=== PATIENT | male | born 1995 | race Caucasian/White ===

== ENCOUNTER → 2019-09-21 15:21 | Outpatient (CLI) | payer BC, SELFPAY ==
--- NOTE | ~2019-09-21 | US_ITS ---
EXAMINATION: US soft tissue groin RT DATE: 09/21/2019 15:35 INDICATION: Right lower quadrant abdominal pain. Right groin pain. TECHNIQUE: Multiple grayscale and Doppler ultrasound images of the right inguinal region were obtaine d. COMPARISON: CT abdomen and pelvis 10/25/2017 FINDINGS: There is no abnormal mass or lymphadenopathy in right inguinal region in the patient's area of concern. IMPRESSION: 1. No abnormal mass or lymphadenopathy in right inguinal region in the patient's area of concern. Reviewed, dictated and finalized at location A. IMPRESSION: 1. No abnormal mass or lymphadenopathy in right inguinal region in the patient' s area of concern.
== END ==
PROVIDERS: PCP Physician Assistant; Visit Provider Surgery
DX: R10.31 Right lower quadrant pain (principal)
CPT/HCPCS: 76882

== ENCOUNTER 2019-10-13 00:06 | Emergency (ER) | payer BC, SELFPAY ==
[2019-10-13 00:15] VITALS: BP 140/88; PULSE 80; RESP 18; TEMP 36.1; O2SAT 99
--- NOTE | 2019-10-13 00:25 | ED.EAR ---
HPI - Ear Problem General Chief complaint: Ear Stated complaint: 24YO male w/ Right Ear Pain for 2-3 days. Here for eval, admits to picking r ear to clear wax . Related Data Home Medications Medication Instructions Recorded Confirmed No Home Medications 10/13/19 10/13/19 Allergies Allergy/AdvReac Type Severity Reaction Status Date / Time Antihistamines - Alkylamine AdvReac Difficulty Verified 10/13/19 00:19 Breathing Review of Systems Review of Systems: All systems reviewed & are unremarkable except as noted in HPI and below Constitutional: Constitutional: Reports no additional constitutional complaints Eyes: Eyes: Reports no additional eye complaints ENT: Reports as per HPI Cardiovascular: Cardiovascular: Reports no additional cardiovascular complaints Comments: Respiratory: Respiratory: Reports no additional respiratory complaints Gastrointestinal: Gastrointestinal: Reports no additional gastrointestinal complaints Musculoskeletal: Musculoskeletal: Reports no additional musculoskeletal complaints Integumentary/Breasts: Skin/Breast: Reports system reviewed and no additional complaints, except as docu Neurologic: Reports system reviewed and no additional complaints, except as documented [facility] Past Medical History Medical History Depression Surgical History Surgical History S/P foot surgery, left Family History Family History Sibling Asthma ADHD Kidney stones Depression Unknown Heart disease Depression Social History Social History Smoking status: Current some day smoker Tobacco type: cigarettes Alcohol intake: current Substance use: unknown 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[employer] Gender identity (if verbalized by the patient): Male Sexual Orientation (if Verbalized by the Patient): Straight or Heterosexual Exam Const: General: healthy appearing, no acute distress and alert Orientation/consciousness: patient oriented x3 HENMT: Ears: TM's normal bilaterally and Abnormal EAC present (Abrasion on posterior aspect of right ext canal) General nose exam: Normal nares present Face and sinus: normal facial exam and sinuses nontender Eyes: Conjunctivae: conjunctivae normal Pupils: Equal, round and reactive pupils present Neck: Neck: normal visual inspection Chest: Chest palpation & inspection: normal inspection of the chest Resp: Effort & Inspection: normal respiratory effort Auscultation: clear to auscultation bilaterally Cardio: Rate: regular rate Rhythm: regular rhythm Skin: General skin exam: normal color Neuro: General: patient oriented x3, moves all extremities, no meningeal signs, no focal motor deficits and CN's II-XI intact bilaterally Extrem: General: normal to inspection Course Vital Signs Vital signs: Vital Signs Temperature 97 F L 10/13/19 00:15 Pulse Rate 80 10/13/19 00:15 Respiratory Rate 18 10/13/19 00:15 Blood Pressure 140/88 10/13/19 00:15 Pulse Oximetry 99 10/13/19 00:15 Temperature 97 F L 10/13/19 00:15 Pulse Rate 80 10/13/19 00:15 Respiratory Rate 18 10/13/19 00:15 Blood Pressure 140/88 10/13/19 00:15 Pulse Oximetry 99 10/13/19 00:15 Medical Decision Making Vital Signs Vital Signs: Vital Signs Temperature 97 F L 10/13/19 00:15 Pulse Rate 80 10/13/19 00:15 Respiratory Rate 18 10/13/19 00:15 Blood Pressure 140/88 10/13/19 00:15 Pulse Oximetry 99 10/13/19 00:15 Temperature 97 F L 10/13/19 00:15 Pulse Rate 80 10/13/19 00:15 Respiratory Rate 18 10/13/19 00:15 Blood Pressure 140/88 10/13/19 00:15 Pulse Oximetry 99 10/13/19 00:15 Critical Care Time Critical Care Time Critical Care Time: No Nadira
[2019-10-13] MEDS: NEOMYCIN/POLYMYXIN/HYDROCORT OT SUSP 10 ML BTL (*BKC) 1 DROP (00:30)
[2019-10-13 00:33] VITALS: BP 145/77; PULSE 82; RESP 18; TEMP 36.1; O2SAT 98
== END 2019-10-13 00:36 | disposition home or self-care (01) ==
PROVIDERS: Emergency Provider Family Medicine; PCP Physician Assistant
DX: H60.501 Unspecified acute noninfective otitis externa, right ear (principal)
CPT/HCPCS: 99282; 99283; A9270

== ENCOUNTER 2019-11-12 13:28 | Emergency (ER) | payer BC, MEDICAID, SELFPAY ==
--- NOTE | ~2019-11-12 | US_ITS ---
EXAMINATION: US scrotum doppler EXAM DATE: 11/12/2019 16:35 INDICATION: Right testicular pain intermittent for 1.5 years. TECHNIQUE: Multiple grayscale and Doppler images of the testicles and scrotum were obtained bilateral ly. There is no prior study for comparison. FINDINGS: Right testicle measures 5.0 x 2.6 x 2.3 cm and is morphologically normal. Low resistance Doppler kirit w confirmed. The epididymis is unremarkable. There is no hydrocele or varicocele. Left testicle measures 4.2 x 2.6 x 2.7 cm and is morphologically normal. Low resistance Doppler flow confirmed. The epididymis is unremarkable. There is no hydrocele or varicocele. IMPRESSION: Unremarkable testicular/scrotal ultrasound exam. Reviewed, dictated and finalized at location B.
--- NOTE | ~2019-11-12 | CT_ITS ---
EXAMINATION: CT abdomen pelvis w con DATE: 11/12/2019 15:08 INDICATION: Right lower quadrant abdominal pain TECHNIQUE: Computed tomography (CT) of the abdomen and pelvis was performed with 100 cc Omnipaque 350 intravenous contrast. Automated exposure control and iterative reconstruction technique were employe d. Exam dose: 221.64 mGy-cm total exam DLP. COMPARISON: 10/25/2017 CT abdomen pelvis FINDINGS: No infiltrate or consolidation at the lung bases. Normal heart size. No pericardial or pleu ral effusion. There are 2 hypoattenuating areas along the posterior margin of the right hepatic lobe (series 3 imag es 67, 68, 69). These may be small cavernous hemangiomas and/or cysts. The liver, gallbladder, bile d ucts, spleen, pancreas, pancreatic duct, and adrenal glands and kidneys are otherwise appear normal. Normal caliber of the abdominal aorta. No intraperitoneal or retroperitoneal or pelvic mass lesion or adenopathy or ascites. Normal appendix. No bowel obstruction, bowel wall thickening, pneumatosis or intraperitoneal free air. Included skeletal structures are unremarkable. IMPRESSION: Normal appendix Reviewed, dictated and finalized at Location A. Reviewed, dictated and finalized at location A. IMPRESSION: Normal appendix
[2019-11-12 13:30] VITALS: BP 147/89; PULSE 91; RESP 18; TEMP 36.9; O2SAT 99
--- NOTE | 2019-11-12 13:45 | ED.ABDPAIN ---
HPI - Abdominal Pain General Chief Complaint: Abdominal Pain Stated Complaint: abd pain Time Seen by Provider: 11/12/19 13:45 Source: patient Mode of arrival: ambulatory Limitations: no limitations History of Present Illness HPI narrative: Patient is a 24-year-old male that presented for evaluation of right-sided lower abdominal pain. Patient states he has been dealing with pain on and off over the past year and a half, states he has seen Dr. Marco Machado and is in the process of having possible surgical procedure with Dr. Hernandez to further investigate this. He reports the pain is throbbing, aching in nature, occasional bulging in the right lower quadrant, with radiation into the right testicle. No dysuria or hematuria. No fever or chills. Patient does report some associated nausea with the pain. No recent heavy lifting. No current bulging. He denies any penile discharge or lesions. Related Data Allergies Allergy/AdvReac Type Severity Reaction Status Date / Time Antihistamines - Alkylamine AdvReac Difficulty Verified 11/12/19 13:39 Breathing Review of Systems Review of Systems: Narrative: CONSTITUTIONAL: Denies fever, chills, or sweats. CARDIOVASCULAR: Denies chest pain, palpitations, or edema. RESPIRATORY: Denies cough or dyspnea. GASTROINTESTINAL: Reports abd pain in the RLQ GENITOURINARY: Denies dysuria or hematuria.Reports rt testicular pain SKIN: Denies rash or itching. MUSCULOSKELETAL: Denies back pain, joint pain, or myalgia. NEUROLOGIC: Denies headache, numbness, or weakness. 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 EYES: PERRLA and EOMI. ENT: Nares clear, no rhinorrhea or epistaxis. Mucous membranes moist. NECK: Supple. CHEST: No respiratory distress, breathing even and non labored HEART: Regular rate, sinus rhythm ABDOMEN:Non distended, non tender, mild right inguinal pain, no lymphadenopathy, no mass or bulging appreciated, penis is circumcised, no lesions or discharge no periumbilical or right upper quadrant pain, nonrigid, no guarding EXTREMITIES: Normal range of motion. No edema. SKIN: Warm, dry, no rash. NEURO:No focal deficits. Alert and oriented x3 Course Vital Signs Vital signs: Vital Signs Temperature 36.9 C 11/12/19 13:30 Pulse Rate 91 11/12/19 13:30 Respiratory Rate 18 11/12/19 13:30 Blood Pressure 147/89 H 11/12/19 13:30 Pulse Oximetry 99 11/12/19 13:30 Temperature 36.9 C 11/12/19 13:30 Pulse Rate 88 11/12/19 16:34 Respiratory Rate 14 11/12/19 16:34 Blood Pressure 126/78 11/12/19 16:34 Pulse Oximetry 99 11/12/19 16:34 MDM - Abdominal Pain MDM Narrative Medical decision making narrative: Patient presented for acute on chronic right-sided abdominal pain. At the time of assessment, ABCs are intact and vital signs are stable. Patient is well-appearing. Abdominal exam and genitourinary exam is very benign. There is no bulging, no lymphadenopathy, very minimal if any pain present on exam. Pain seems to be worse with movement which makes me think this is likely musculoskeletal. Testicles are nonerythematous, nonedematous, nontender on exam. No penile discharge or exudate. No lesions. Laboratory work-up is reassuring. No leukocytosis. No electrolyte derangement. No acute kidney injury. No sign of torsion on imaging. No UTI. No acute findings on CT abdomen/pelvis. Patient's abdomen is soft without significant pain or signs of surgical abdomen on serial exa
[2019-11-12 14:00] LABS: Basophils Percent Auto 0.5 % (0.2-1.2); Eosinophils Absolute Auto 0.3 K/mm3 (0-0.3); Hemoglobin 18.3 g/dL (14.0-18.0); Immature Granulocyte Absolute 0.03 K/mm3 (0.00-0.031); Immature Granulocyte Percent A 0.4 % (0-0.5); Lymphocytes Absolute Auto 1.73 K/mm3 (0.9-3.2); Lymphocytes Percent Auto 20.6 % (18.3-44.2); Mean Corpuscular HGB Conc 35.9 g/dl (32-36); Mean Corpuscular Hemoglobin 33.8 pg (26-34); Mean Corpuscular Volume 94.3 fl (80-100); Mean Platelet Volume 9.2 fl (7.4-10.4); Monocytes Absolute Auto 0.9 K/mm3 (0.1-0.6); Monocytes Percent Auto 10.5 % (2.6-8.5); Neutrophils Absolute Auto 5.5 K/mm3 (1.3-6.7); Platelet Count Result 274 k/mm3 (150-375); Red Blood Count 5.41 M/mm3 (4.6-6.20); Red Cell Distribution Width 12.3 % (11.5-14.5); White Blood Count 8.4 K/mm3 (4.5-10.0)
[2019-11-12 14:12] LABS: Alanine Aminotransferase 33 U/L (4-50); Alkaline Phosphatase 72 U/L (38-126); Anion Gap 11 mmol/L (8-16); Aspartate Amino Transferase 34 U/L (17-59); Bilirubin,Total 1.2 mg/dL (0.2-1.3); Blood Urea Nitrogen 12 mg/dL (9-20); Calcium 10.3 mg/dL (8.4-10.2); Carbon Dioxide 26 mmol/L (22-30); Chloride 104 mmol/L (98-107); Estimated CRCL calculation 100 ml/min; Estimated Glomerular Filt Rate > 60; Glucose 100 mg/dL (75-110); Lipase 29 U/L (23-300); Potassium 3.7 mmol/L (3.4-5.0); Sodium 141 mmol/L (137-145)
[2019-11-12] MEDS: oxyCODONE/ACETAMINOPHEN (*CRX) 5-325 MG TABLET 1 TABLET PO (14:29)
[2019-11-12 16:05] LABS: Add Urine Microscopic? YES; Appearance Urine Clear (Clear); Bacteria Urine Trace /hpf; Bilirubin Urine Negative (Negative); Blood Urine Negative (Negative); Color Urine Yellow (Yellow); Glucose Urine UA Negative (Negative); Ketones Urine Negative (Negative); Leukocyte Esterase Ur Negative LEU/UL (Negative); Mucus Urine Rare /lpf; Nitrate Urine Negative (Negative); Protein Urine Negative (Negative); RBC Urine 0-2 /hpf (0-2); Specific Grav Ur 1.015 (1.001-1.035); WBC Urine 0-3 /hpf
[2019-11-12 16:34] VITALS: BP 126/78; PULSE 88; RESP 14; O2SAT 99
== END 2019-11-12 17:15 | disposition home or self-care (01) ==
PROVIDERS: Emergency Provider Emergency Medicine; PCP Physician Assistant
DX: R10.31 Right lower quadrant pain (principal); F17.210 Nicotine dependence, cigarettes, uncomplicated
CPT/HCPCS: 36415; 74177; 76870; 80053; 81001; 83690; 85025; 93976; 99284; A9270; Q9967

== ENCOUNTER 2019-11-17 00:57 | Outpatient (CLI) | payer BC, SELFPAY ==
[2019-11-17 18:59] LABS: SARS-CoV-2 RNA PCR Negative
== END 2019-11-17 00:58 | disposition home or self-care (01) ==
LOC: ANHCOVIDDT 00:57
PROVIDERS: PCP Physician Assistant; Visit Provider Surgery
DX: Z01.812 Encounter for preprocedural laboratory examination (principal); Z20.828 Contact with and (suspected) exposure to other viral communicable diseases
CPT/HCPCS: 87635; C9803; U0003

== ENCOUNTER 2019-11-17 07:33 | Outpatient (CLI) | payer BC, SELFPAY | END 2019-11-17 07:34 | disposition home or self-care (01) | PROVIDERS: PCP Physician Assistant; Visit Provider Surgery | DX: Z01.812 Encounter for preprocedural laboratory examination (principal); K40.90 Unilateral inguinal hernia, without obstruction or gangrene, not specified as recurrent | CPT/HCPCS: 36415; 86850; 86900; 86901 ==

== ENCOUNTER 2019-11-20 01:54 | Day surgery (SDC) | payer BC, SELFPAY ==
[2019-11-15 14:56] VITALS: BMI 22.7
[2019-11-20] VITALS (8 sets, daily range): BP systolic 121–157; BP diastolic 78–99; PULSE 64–88; RESP 10–15; TEMP 36.1–36.5; O2SAT 96–100
[2019-11-20] MEDS: LACTATED RINGERS 1,000 ML 30 ML IV CONT ×2 (06:42→08:50)
[2019-11-20] MEDS: ACETAMINOPHEN 500 MG TABLET 1000 MG PO (06:42)
[2019-11-20] MEDS: KETOROLAC 15 MG/ML VIAL (*BKC) IV PUSH (06:43)
--- NOTE | 2019-11-20 06:50 | WPDANESEPPF ---
Anes - Initial Pre Proc Eval Procedure: Operation Date: 11/20/19 07:30 Proposed Procedures p Laparoscopic Right Inguinal Hernia Repair with Mesh, Davinci Assisted - Alex Quezada DO Date/Time: 11/20/19 06:50 Surgeon: Alex Quezada DO Pre Op Diagnosis: right inguinal hernia Patient Data Age: 24 Gender: M Height: 5 ft 7 in Weight: 65.77 kg Allergies Allergy/AdvReac Type Severity Reaction Status Date / Time Antihistamines - Alkylamine AdvReac Difficulty Verified 11/15/19 14:57 Breathing Home Medications Medication Instructions Recorded Confirmed Type acetaminophen 500 mg PO Q6H PRN #30 cap 11/12/19 11/16/19 Rx ibuprofen 400 mg PO TID PRN 10 Days #30 11/12/19 11/16/19 Rx tablet lidocaine 1 patch TOPICAL Q24H PRN 10 Days 11/12/19 11/16/19 Rx #10 each cyclobenzaprine 10 mg tablet 10 mg PO TID PRN tablet 11/15/19 11/16/19 History Patient hx anesthesia problems: none Family hx anesthesia problems: none PMFSH Past Medical History Medical History ADHD Depression Smoker Tobacco abuse Surgical History Surgical History S/P foot surgery, left Family History Family History Sibling Asthma ADHD Kidney stones Depression Unknown Heart disease Depression Social History Social History Smoking packs per day: 1 Smoking cigarettes per day: 20.0 Years smoked: 16 Smoking pack-years: 16.00 Smoking status: Current every day smoker Tobacco type: cigarettes Alcohol intake: current Alcohol use details: STATES DRINKS 1-2 BOTTLES WHISKEY AND 30 PACK W/ FRIENDS PER WEEK Substance use: current Substance use type: marijuana Last use: DAILY 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 Questions were solicited and answers provided to the satisfaction of the patient/family/POA.
--- NOTE | 2019-11-20 07:07 | WPDHPUPDATE1 ---
History and Physical Update Update Date/Time: 11/20/19 07:07 History and Physical has been reviewed, including an updated exam of the patient. There are NO changes in the patient's condition. Risks, benefits, and alternatives have been discussed and questions answered. Patient agrees to proceed with procedure.
[2019-11-20] MEDS: ceFAZolin 2 GM/D5W 50 ML 2 GM/50 ML BAG IVPB (07:22)
--- NOTE | 2019-11-20 08:37 | PM.PROC ---
Procedure Note - Detailed Date of procedure: 11/20/19 Pre-op diagnosis: right inguinal hernia Post-op diagnosis: same (Indirect RIH) Procedure performed: Laparoscopic right inguinal hernia repair with Progrip mesh, da Jones assisted Description of procedure: Procedure as well as risks, benefits, and alternatives were discussed with the patient. Written consent was obtained and placed in chart prior to procedure. Patient was brought back to surgical suite. He was placed supine on operating table. Time-out was done to confirm patient and procedure. He was then intubated by Anesthesia Department. His abdomen was prepped and draped in sterile fashion using chlorhexidine prep. 0.5% bupivacaine with epinephrine was infiltrated at each location for incision. An 8 mm incision was made in the left lateral abdomen, and a 5 mm Optiview trocar was advanced through the abdominal layers under direct visualization. Once inside the abdominal cavity, carbon dioxide insufflation was used to create a pneumoperitoneum. A camera was inserted and the abdominal cavity was inspected. The patient was placed in slight Trendelenburg position. An 8 millimeter incision was made on the right lateral abdomen and an 8 millimeter trocar was inserted under direct visualization. Another 8 millimeter incision was made just superior to the umbilicus and an 8 millimeter trocar was inserted under direct visualization. The 5 mm port was then removed and this was replaced with another 8 mm robotic port. The robotic arms were brought up to the patient's bedside and secured to the ports. The camera and instruments were inserted. I then moved over to the robotic console and took control of the camera and instruments. After careful inspection of the abdominal cavity, I began scoring the peritoneum along the right lower quadrant using scissors with electrocautery. The preperitoneal plane was entered and this was carefully dissected caudally along the inferior epigastric vessels. Careful dissection with scissors with electrocautery and blunt dissection was used to continue this dissection. I dissected far enough laterally to allow for mesh placement, and also dissected medially to identify the pubic arch and Nilesh's ligament. The hernia sac was identified and carefully dissected posteriorly. The cord contents were also identified and the peritoneum was carefully dissected far enough posteriorly to allow for mesh placement. Once an adequate pocket was created, I then placed the mesh within the preperitoneal pocket and carefully unfolded it. The mesh was centered on the hernia defect with adequate overlap circumferentially. The inferior edge of the mesh was inspected to ensure that it was far enough away from the peritoneal edge. The mesh appeared in proper position overlying the entire myopectineal orifice. The peritoneum was then closed over the mesh using a 3-0 V-lock running absorbable suture. The robotic instruments were removed. The robotic arms were disengaged from the ports and moved away from the bedside. The patient was flattened out in bed, the ports were removed under direct visualization, and the pneumoperitoneum was released. The skin of the incisions was approximated using 4-0 Monocryl subcuticular suture, and Exofin glue was applied on top. The patient was awakened from anesthesia, extubated, and transferred to recovery. Implants: Progrip Mesh 10cm x 15cm Anesthesia: GETA and local (0.5% bupivicaine with epi) Surgeon: Alex Quezada DO Estimated blood loss (mL): 5 Drains: No Packing: No Pathology: none sent Complications: No immediate complications Condition: stable Disposition: same day Findings: This is a 24-year-old man who presented with complaints of right groin pain and a bulge. He has been having symptoms for about 2 years. He notices pain more frequently with heavy activity or standing for long periods of time. Hernia was difficult to appreciate on physica
[2019-11-20] MEDS: fentaNYL CITRATE INJ (*CRX) 100 MCG/2 ML VIAL 25 MCG IV PUSH ×6 (09:12→09:32)
[2019-11-20] MEDS: oxyCODONE HCL (*CRX) 5 MG TAB IR PO (10:00)
--- NOTE | 2019-11-20 10:33 | SUR.PHASEII ---
Patient stated, It was very painful to urinate but what little I had in my bladder I was able to get out. RN asked patient if he felt comfortable going home and he said yes.
--- NOTE | 2019-11-20 11:26 | SUR.PHASEII ---
RN left outpatient area w/ patient at 1058. Patient asked to use the bathroom in the lobby for the third time. He stated each time he was only able to go a little bit. RN told patient if he was still having trouble urinating in a few hours at home to call Dr. Quezada's office. RN put patient in vehicle at 1120 to go home.
== END 2019-11-20 10:58 | disposition home or self-care (01) ==
PROVIDERS: PCP Physician Assistant; Visit Provider Surgery
PROC: 8E0Y4CZ Robotic Assisted Procedure of Lower Extremity, Percutaneous Endoscopic Approach (ICD-10-PCS; CPT 49650; principal; 2019-11-20 07:30)
DX: K40.90 Unilateral inguinal hernia, without obstruction or gangrene, not specified as recurrent (principal); F17.210 Nicotine dependence, cigarettes, uncomplicated
CPT/HCPCS: 49650; S2900; A9270; C1781; J0330; J0690; J1100; J1885; J2250; J2405; J2704; J3010; J7030; J7120

== ENCOUNTER 2020-01-03 21:32 | Emergency (ER) | payer BC, SELFPAY ==
--- NOTE | ~2020-01-03 | XR_ITS ---
XR ribs BI 3V w CXR 2V DATE: 01/03/2020 22:57 INDICATION: Left lower anterior rib pain. No injury. TECHNIQUE: PA and lateral chest. Multiple views of left and right ribs. COMPARISON: 04/07/2011 PA chest FINDINGS: Normal heart size. No hilar or mediastinal enlargement. No pulmonary infiltrate or consolid ation, pleural effusion or pulmonary vascular congestion or pneumothorax. No rib fracture or bone destruction is detected. IMPRESSION: Negative Reviewed, dictated and finalized at location A. [employer] ASSESS[employer] IMPRESSION: Negative
--- NOTE | ~2020-01-03 | CT_ITS ---
EXAMINATION: CT abdomen pelvis wo con DATE: 01/03/2020 23:29 INDICATION: Left upper quadrant abdominal pain TECHNIQUE: Computed tomography (CT) of the abdomen and pelvis was performed without intravenous contr ast. Automated exposure control and iterative reconstruction technique were employed. Exam dose: 207 .30 mGy-cm total exam DLP. COMPARISON: 11/12/2019 CT abdomen pelvis FINDINGS: The lung bases are clear. Normal heart size. No pericardial or pleural effusion. The liver, gallbladder, spleen, pancreas, adrenal glands and kidneys are unremarkable. Normal caliber of the abdominal aorta. No intraperitoneal or retroperitoneal or pelvic mass lesion or adenopathy or ascites. Normal appendix. No bowel obstruction, bowel wall thickening, pneumatosis or intraperitoneal free air . Included skeletal structures are unremarkable. IMPRESSION: No significant abnormality Reviewed, dictated and finalized at Location A. Reviewed, dictated and finalized at location A. 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
[2020-01-03 21:38] VITALS: BP 145/90; PULSE 116; RESP 14; TEMP 36.6; O2SAT 100
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
[2020-01-03 23:29] LABS: Basophils Percent Auto 0.4 % (0.2-1.2); Eosinophils Absolute Auto 0.2 K/mm3 (0-0.3); Eosinophils Percent Auto 1.3 % (0-4.4); Hematocrit 50.5 % (42.0-52.0); Immature Granulocyte Absolute 0.04 K/mm3 (0.00-0.031); Immature Granulocyte Percent A 0.4 % (0-0.5); Lymphocytes Absolute Auto 1.98 K/mm3 (0.9-3.2); Lymphocytes Percent Auto 17.4 % (18.3-44.2); Mean Corpuscular HGB Conc 35.6 g/dl (32-36); Mean Corpuscular Hemoglobin 33.1 pg (26-34); Mean Platelet Volume 9.4 fl (7.4-10.4); Monocytes Percent Auto 8.3 % (2.6-8.5); Neutrophils Absolute Auto 8.2 K/mm3 (1.3-6.7); Neutrophils Percent Auto 72.2 % (45.5-73.1); Platelet Count Result 315 k/mm3 (150-375); Red Blood Count 5.43 M/mm3 (4.6-6.20); Red Cell Distribution Width 12.2 % (11.5-14.5); White Blood Count 11.4 K/mm3 (4.5-10.0)
[2020-01-03 23:51] LABS: Alanine Aminotransferase 42 U/L (4-50); Albumin Level 4.9 g/dL (3.5-5.1); Alkaline Phosphatase 69 U/L (38-126); Anion Gap 10 mmol/L (8-16); Aspartate Amino Transferase 32 U/L (17-59); Bilirubin,Total 0.7 mg/dL (0.2-1.3); Blood Urea Nitrogen 15 mg/dL (9-20); Calcium 10.3 mg/dL (8.4-10.2); Carbon Dioxide 31 mmol/L (22-30); Chloride 101 mmol/L (98-107); Estimated CRCL calculation 99 ml/min; Estimated Glomerular Filt Rate > 60; Glucose 96 mg/dL (75-110); Lipase 45 U/L (23-300); Potassium 3.6 mmol/L (3.4-5.0); Sodium 142 mmol/L (137-145)
[2020-01-04 00:03] VITALS: BP 136/89; PULSE 91; RESP 20; TEMP 36.8; O2SAT 97
== END 2020-01-04 00:04 | disposition home or self-care (01) ==
PROVIDERS: Emergency Provider Emergency Medicine; PCP Physician Assistant
DX: R07.81 Pleurodynia (principal); R10.12 Left upper quadrant pain; F17.210 Nicotine dependence, cigarettes, uncomplicated; Z86.19 Personal history of other infectious and parasitic diseases
CPT/HCPCS: 36415; 71046; 71110; 74176; 80053; 83690; 85025; 99284

== ENCOUNTER 2020-05-23 20:06 | Emergency (ER) | payer BC, MEDICAID, SELFPAY ==
--- NOTE | ~2020-05-23 | CT_ITS ---
EXAMINATION: CT abdomen pelvis w con DATE: 05/23/2020 23:43 INDICATION: Right lower quadrant abdominal pain TECHNIQUE: Computed tomography (CT) of the abdomen and pelvis was performed with 100 cc Omnipaque 350 intravenous contrast. Automated exposure control and iterative reconstruction technique were employe d. Exam dose: 195.63 mGy-cm total exam DLP. COMPARISON: 01/03/2020 CT abdomen pelvis 11/12/2019 CT abdomen pelvis FINDINGS: The lung bases are clear. Normal heart size. No pericardial or pleural effusion. Stable approximately 6 and 15 mm hypoattenuating lesions along the posterior right hepatic margin sin ce 11/12/2019 are likely small cysts and/or hemangiomas. Liver otherwise is unremarkable. Normal splen ic size. No pancreatic mass lesion, calcification or ductal dilatation. No bile duct dilatation. The gallbladd er is present. Normal morphology of the adrenal glands. No renal mass lesion or urinary tract calculus or hydroureteronephrosis is evident. The urinary bladd er and prostate gland are unremarkable. Normal caliber of the abdominal aorta. No intraperitoneal or retroperitoneal or pelvic mass lesion or adenopathy or ascites. Normal appendix. No bowel obstruction, bowel wall thickening, pneumatosis or intraperitoneal free air . Included skeletal structures are unremarkable. IMPRESSION: Normal appendix Stable approximately 6 and 15 mm posterior right hepatic margin lesions since 11/12/2019 Reviewed, dictated and finalized at [facility] Reviewed, dictated and finalized at [facility].
[2020-05-23 20:11] VITALS: BP 127/75; PULSE 84; RESP 18; TEMP 36.9; O2SAT 98
[2020-05-23] MEDS: SODIUM CHLORIDE 0.9% IV 1,000 ML 999 ML IV CONT (23:01)
[2020-05-23 23:04] LABS: Basophils Absolute Auto 0.1 K/mm3 (0.0-0.1); Basophils Percent Auto 0.4 % (0.2-1.2); Eosinophils Absolute Auto 0.3 K/mm3 (0-0.3); Eosinophils Percent Auto 2.1 % (0-4.4); Hematocrit 50.2 % (42.0-52.0); Hemoglobin 17.6 g/dL (14.0-18.0); Immature Granulocyte Absolute 0.04 K/mm3 (0.00-0.031); Immature Granulocyte Percent A 0.3 % (0-0.5); Lymphocytes Absolute Auto 2.63 K/mm3 (0.9-3.2); Lymphocytes Percent Auto 21.2 % (18.3-44.2); Mean Corpuscular HGB Conc 35.1 g/dl (32-36); Mean Corpuscular Hemoglobin 32.1 pg (26-34); Mean Corpuscular Volume 91.4 fl (80-100); Mean Platelet Volume 8.9 fl (7.4-10.4); Monocytes Percent Auto 8.3 % (2.6-8.5); Neutrophils Absolute Auto 8.4 K/mm3 (1.3-6.7); Neutrophils Percent Auto 67.7 % (45.5-73.1); Platelet Count Result 269 k/mm3 (150-375); Red Blood Count 5.49 M/mm3 (4.6-6.20); Red Cell Distribution Width 12.3 % (11.5-14.5); White Blood Count 12.4 K/mm3 (4.5-10.0)
[2020-05-23 23:11] LABS: Lactic Acid Reflex 0.9 mmol/L (0.7-2.1)
[2020-05-23 23:12] LABS: Alanine Aminotransferase 21 U/L (4-50); Albumin Level 4.9 g/dL (3.5-5.1); Alkaline Phosphatase 62 U/L (38-126); Anion Gap 5 mmol/L (8-16); Aspartate Amino Transferase 38 U/L (17-59); Bilirubin,Total 0.5 mg/dL (0.2-1.3); Blood Urea Nitrogen 13 mg/dL (9-20); Carbon Dioxide 32 mmol/L (22-30); Chloride 104 mmol/L (98-107); Estimated CRCL calculation 92 ml/min; Estimated Glomerular Filt Rate > 60; Glucose 83 mg/dL (75-110); Lipase 359 U/L (23-300); Sodium 141 mmol/L (137-145)
--- NOTE | 2020-05-24 00:06 | ED.GENADULT ---
HPI - General Adult General Chief complaint: Abdominal Pain Stated complaint: abd pain, hernia Time Seen by Provider: 05/23/20 22:29 History of Present Illness HPI narrative: Patient is a 25-year-old gentleman who presents the emergency department with chief complaint of abdominal pain. Patient reports that he has pain in the right lower quadrant/right inguinal area is at the same area where he has had a inguinal hernia repair. Patient states that whenever he is at work and has any movement of the area starts to hurt. The patient denies fever denies vomiting denies diarrhea. The patient states that he had a mesh repair in the past. Related Data Home Medications Medication Instructions Recorded Confirmed cyclobenzaprine 10 mg tablet 10 mg PO TID PRN tablet 11/15/19 02/21/20 Allergies Allergy/AdvReac Type Severity Reaction Status Date / Time Antihistamines - Alkylamine AdvReac Difficulty Verified 05/23/20 20:14 Breathing Review of Systems Review of Systems: Narrative: A 10 system review of systems was completed on the patient and is negative except for what is stated in the HPI. Nursing and ancillary documentation was reviewed. [facility] Past Medical History Medical History ADHD Depression Smoker Tobacco abuse Surgical History Surgical History H/O inguinal hernia repair 11/20/19 [facility] repair with mesh, davinci assisted S/P foot surgery, left Family History Family History Sibling Asthma ADHD Kidney stones Depression Unknown Heart disease Depression Social History Social History Smoking packs per day: 1 Smoking cigarettes per day: 20.0 Years smoked: 16 Smoking pack-years: 16.00 Tobacco type: cigarettes Alcohol intake: current Substance use: current Substance use type: marijuana Last use: DAILY 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 HEAD: Normocephalic, atraumatic. EYES: PERRLA and EOMI. ENT: Nares clear, no rhinorrhea or epistaxis. Mucous membranes moist. NECK: Supple. CHEST: Clear to auscultation. No respiratory distress. HEART: Regular rate and rhythm. No murmur heard. Normal peripheral pulses. ABDOMEN: Soft, tenderness to palpation in the right inguinal area, nondistended, normal active bowel sounds. EXTREMITIES: Normal range of motion. No edema. SKIN: Warm, dry, no rash. NEURO: No focal deficits. Alert and oriented x3. PSYCH: Normal mood and affect. Course Vital Signs Vital signs: Vital Signs Temperature 36.9 C 05/23/20 20:11 Pulse Rate 84 05/23/20 20:11 Respiratory Rate 18 05/23/20 20:11 Blood Pressure 127/75 05/23/20 20:11 Pulse Oximetry 98 05/23/20 20:11 Temperature 36.9 C 05/23/20 20:11 Pulse Rate 84 05/23/20 20:11 Respiratory Rate 18 05/23/20 20:11 Blood Pressure 127/75 05/23/20 20:11 Pulse Oximetry 98 05/23/20 20:11 Medical Decision Making Vital Signs Vital Signs: Vital Signs Temperature 36.9 C 05/23/20 20:11 Pulse Rate 84 05/23/20 20:11 Respiratory Rate 18 05/23/20 20:11 Blood Pressure 127/75 05/23/20 20:11 Pulse Oximetry 98 05/23/20 20:11 Temperature 36.9 C 05/23/20 20:11 Pulse Rate 84 05/23/20 20:11 Respiratory Rate 18 05/23/20 20:11 Blood Pressure 127/75 05/23/20 20:11 Pulse Oximetry 98 05/23/20 20:11 Lab Data Result diagrams: 05/23/20 22:55 05/23/20 22:55 Labs: Lab Results 05/23/20 05/23/20 05/23/20 Range/Units 22:55 22:55 22:55 WBC 12.4 H (4.5-10.0) K/mm3 RBC 5.49 (4.6-6.20) M/mm3
[2020-05-24 00:22] VITALS: BP 124/73; PULSE 73; RESP 16; TEMP 36.8; O2SAT 98
== END 2020-05-24 00:23 | disposition home or self-care (01) ==
PROVIDERS: Emergency Provider Emergency Medicine; PCP Physician Assistant
DX: R10.31 Right lower quadrant pain (principal); F17.210 Nicotine dependence, cigarettes, uncomplicated
CPT/HCPCS: 36415; 74177; 80053; 82248; 83605; 83690; 85025; 96360; 99284; J7030; Q9967

== ENCOUNTER 2020-06-10 14:50 | Outpatient (RCR) | payer MEDICAID, SELFPAY ==
--- NOTE | 2020-06-10 15:44 | PTOPEVAL ---
Thank you for referring Matias Calvin to [facility] [place]Note 2[place]? The patient is scheduled to be seen for therapy? __3__x/week for 9 visits. Please review, sign, date and return this plan of care LALI. I agree with and certify that the following plan of care is medically necessary. Referring Physician Date Admitting Provider: Attending Provider: Alex Quezada DO Referring Provider: *PT Outpatient Evaluation Start: 06/10/20 14:58 Freq: Status: Active Protocol: Document 06/10/20 14:58 SALAZAR (Rec: 06/10/20 15:43 SALAZAR [id number]) Therapy Assessment Status Assessment Status Assessment Status Evaluation Outpatient Past Medical History Neurological History Hx Neurological Disorders No Significant History Cardiovascular History Hx Cardiac Disorders No Significant History Respiratory History Hx Respiratory Disorders No Significant History Gastrointestinal History Hx Hernia Yes: RT INGUINAL HERNIA Genitourinary History Hx Genitourinary Disorders No Significant History Musculoskeletal History Hx Back Pain Yes Hx Fractures Yes: FX RT HAND Hx Orthopedic Surgery Yes: ORIF RT HAND, REMOVAL FOREIGN BODY FOOT Hematological History Hx Hematological Disorders No Significant History Endocrine History Hx Endocrine Disorders No Significant History HEENT History Hx HEENT Disorders No Significant History Integumentary History Hx Skin Disorders No Significant History Reproductive History Hx Reproductive Disorders No Significant History Psychosocial History Hx Attention Deficit Hyperactivity Yes Disorder Hx Depression Yes Hx Other Psychiatric Disorders Yes: INSOMNIA Pain History Has Past Pain Affected Your Daily Life Yes: BACK PAIN Anesthesia History Hx Anesthesia Reactions No Significant History Evaluation Information Problem Diagnosis right lower quadrant pain Onset 05/20/20 Subjective Information Pt. reports he underwent a Query Text:As Reported By Patient/ hernia repair in November. He Family states that right groin pain returned 3 weeks ago. 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 He reports pain is constant with movement, and has occassional reprive from pain. He states that pain does not wake him at night. He reports that he is currently taking tramadol and
== END 2020-07-01 11:04 | disposition home or self-care (01) ==
LOC: CHSPT 14:50
PROVIDERS: Visit Provider Surgery
DX: R10.31 Right lower quadrant pain (principal); Z98.890 Other specified postprocedural states; Z87.19 Personal history of other diseases of the digestive system
CPT/HCPCS: 97110; 97161

== ENCOUNTER 2020-07-20 14:30 | Emergency (ER) | payer BC, MEDICAID, SELFPAY ==
[2020-07-20 14:50] VITALS: BP 135/68; PULSE 82; RESP 16; TEMP 36.6; O2SAT 97
--- NOTE | 2020-07-20 15:40 | ED.ABDPAIN ---
HPI - Abdominal Pain General Chief Complaint: Abdominal Pain Stated Complaint: hernia mesh pain Time Seen by Provider: 07/20/20 15:15 Source: patient Mode of arrival: ambulatory Limitations: no limitations History of Present Illness HPI narrative: Patient comes in with complaints of bulging in right groin earlier, and right groin pain. This started after he was stirring chemicals in his pool, and evidently straining to stir last pm. He states he had a budge in the right groin at that time. He states pain was moderately severe then, and burning type pain. It has let up considerably, but he still is having a burning type pain in the right groin area, severity now is mild. He has not taken anything for pain. No other associated signs or symptoms. Pertinent past history: other (past inguinal hernia repair) Onset (ago): day(s) Pain Consistency: constant Location: groin Severity: mild Quality: burning Radiation: none Exacerbating factors: movement Relieving factors: rest Context: confirms other (straining to stir chemicals into pool) Associated symptoms: denies other symptoms Related Data Allergies Allergy/AdvReac Type Severity Reaction Status Date / Time Antihistamines - Alkylamine AdvReac Difficulty Verified 07/10/20 13:43 Breathing Review of Systems Constitutional: Constitutional: Reports no additional constitutional complaints Eyes: Eyes: Reports no additional eye complaints ENT: Reports system reviewed and no additional complaints, except as documented Cardiovascular: Cardiovascular: Reports no additional cardiovascular complaints Respiratory: Respiratory: Reports no additional respiratory complaints Gastrointestinal: Gastrointestinal: Reports no additional gastrointestinal complaints, Denies diarrhea, Denies nausea and Denies vomiting Genitourinary: Genitourinary: Reports no additional male genitourinary complaints Musculoskeletal: Musculoskeletal: Reports no additional musculoskeletal complaints Integumentary/Breasts: Skin/Breast: Reports system reviewed and no additional complaints, except as docu Neurologic: Reports system reviewed and no additional complaints, except as documented Psychiatric: Psychiatric: Reports no additional psychiatric complaints Endocrine: Endocrine: Reports no additional endocrine complaints Hematologic/Lymphatic: Hematologic/Lymphatic: Reports no additional hematologic/lymphatic complaints Allergic/Immunologic: Allergic/Immunologic: Reports no additional allergic/immunologic complaints REPLACED BY [facility] Past Medical History Medical History ADHD Depression Smoker Tobacco abuse Surgical History Surgical History H/O inguinal hernia repair 11/20/19 [facility] repair with mesh, davinci assisted S/P foot surgery, left Family History Family History Sibling Asthma ADHD Kidney stones Depression Unknown Heart disease Depression Social History Social History Smoking packs per day: 1 Smoking cigarettes per day: 20.0 Years smoked: 16 Smoking pack-years: 16.00 Smoking status: Current every day smoker Tobacco type: cigarettes Alcohol intake: current Substance use: current Substance use type: marijuana Last use: DAILY Additional occupation/education comments: [employer] Work[employer]: [employer] Gender identity (if verbalized by the patient): Male Exam Const: General: no acute distress and alert Orientation/consciousness: patient oriented x3 HENMT: Head: normal to inspection Ears: external ears normal and TM's normal bilaterally General nose exam: Normal external nose present Mouth: Yes Normal oral and palatal mucosa present Throat: posterior oropharynx normal Eyes: Conjunctivae: conjunctivae normal Neck: Neck: normal visual inspection Resp: Effort
[2020-07-20 15:47] VITALS: RESP 14; O2SAT 100
== END 2020-07-20 15:50 | disposition home or self-care (01) ==
PROVIDERS: Emergency Provider Emergency Medicine; PCP Physician Assistant
DX: R10.9 Unspecified abdominal pain (principal)
CPT/HCPCS: 99281; 99282

== ENCOUNTER → 2020-08-09 01:18 | Outpatient (CLI) | payer MEDICAID, BC, SELFPAY ==
[2020-08-09 16:44] LABS: SARS-CoV-2 RNA PCR Negative
== END ==
PROVIDERS: PCP Physician Assistant; Visit Provider Surgery
DX: Z01.812 Encounter for preprocedural laboratory examination (principal); Z20.822 Contact with and (suspected) exposure to COVID-19
CPT/HCPCS: C9803; U0003; U0005

== ENCOUNTER 2020-08-12 00:53 | Day surgery (SDC) | payer MEDICAID, SELFPAY ==
[2020-08-05 13:43] VITALS: BMI 21.7
[2020-08-12 08:37] VITALS: BP 125/71; PULSE 74; RESP 20; TEMP 36.7; O2SAT 99
--- NOTE | 2020-08-12 09:20 | SUR.PREOP ---
[id number]. MCARTHUR AWARE PT HAD UNDETERMINED AMOUNT OF COFFEE WITH MILK UP UNTIL 0800. HE WILL SPEAK WITH PT AND SPEAK WITH DR. DELA CRUZ. [id number]. MCARTHUR GAVE PT OPTION TO WAIT 4 HOURS BEFORE PROCEEDING WITH SURGERY, PT OPTS TO RESCHEDULE SURGERY. AWARE HE WILL NEED TO AWAIT DR. DELA CRUZ BEFORE LEAVING.
== END 2020-08-12 09:37 | disposition home or self-care (01) ==
PROVIDERS: PCP Physician Assistant; Visit Provider Surgery
PROC: (CPT 49320; principal; 2020-08-12 10:30)
DX: R10.32 Left lower quadrant pain (principal); Z53.09 Procedure and treatment not carried out because of other contraindication
CPT/HCPCS: 99212; G0463

== ENCOUNTER → 2020-09-16 01:58 | Outpatient (CLI) | payer BC, OTHER, SELFPAY ==
[2020-09-16 17:39] LABS: SARS-CoV-2 RNA PCR Negative
== END ==
PROVIDERS: PCP Physician Assistant; Visit Provider Surgery
DX: Z01.812 Encounter for preprocedural laboratory examination (principal); Z20.822 Contact with and (suspected) exposure to COVID-19
CPT/HCPCS: C9803; U0003; U0005

== ENCOUNTER 2020-09-16 09:02 | Outpatient (CLI) | payer BC, OTHER, SELFPAY ==
--- NOTE | 2020-09-16 09:10 | ECG_ITS ---
Measurements Intervals [place] Rate: 88 P: 61 GA: 145 QRS: 45 QRSD: 93 T: 26 QT: 351 QTc: 426 Interpretive Statements SINUS RHYTHM INCOMPLETE RIGHT BUNDLE BRANCH BLOCK BORDERLINE ECG Electronically Signed On 09-16-2020 10:14:56 CDT by Stoney Hearn D.O.
== END 2020-09-16 09:03 | disposition home or self-care (01) ==
PROVIDERS: PCP Physician Assistant; Visit Provider Surgery
DX: R10.31 Right lower quadrant pain (principal); Z72.0 Tobacco use; Z01.818 Encounter for other preprocedural examination; I45.10 Unspecified right bundle-branch block
CPT/HCPCS: 36415; 86850; 86900; 86901; 93005

== ENCOUNTER 2020-09-19 00:13 | Day surgery (SDC) | payer OTHER, SELFPAY ==
[2020-09-15 14:49] VITALS: BMI 21.7
[2020-09-19] VITALS (8 sets, daily range): BP systolic 112–134; BP diastolic 61–86; PULSE 60–81; RESP 12–20; TEMP 36.1–36.7; O2SAT 98–100
[2020-09-19] MEDS: ACETAMINOPHEN 500 MG TABLET 1000 MG PO (10:24)
[2020-09-19] MEDS: LACTATED RINGERS 1,000 ML 30 ML IV CONT (10:25)
[2020-09-19] MEDS: KETOROLAC 15 MG/ML VIAL (*BKC) IV PUSH (10:25)
--- NOTE | 2020-09-19 10:41 | P.PNAN_ITS ---
Anes - Initial Pre Proc Eval Procedure: Operation Date: 09/19/20 12:00 Proposed Procedures p Diagnostic Laparoscopy - Alex Quezada DO Date/Time: 09/19/20 10:41 Surgeon: Alex Quezada DO Pre Op Diagnosis: Right groin pain Patient Data Age: 25 Gender: M Height: 1.73 m Weight: 64.86 kg Allergies Allergy/AdvReac Type Severity Reaction Status Date / Time Antihistamines - Alkylamine AdvReac Intermediate Difficulty Verified 09/19/20 10:40 Breathing Home Medications Medication Instructions Recorded Confirmed Type hydrocortisone 2.5 applic TOPICAL BID 09/15/20 09/19/20 History nystatin 100,000 unit TOPICAL BID 09/15/20 09/19/20 History Patient hx anesthesia problems: none Family hx anesthesia problems: none [facility] Past Medical History Medical History ADHD Depression Smoker Tobacco abuse Surgical History Surgical History H/O inguinal hernia repair 11/20/19 [facility] repair with mesh, davinci assisted S/P foot surgery, left Family History Family History Sibling Asthma ADHD Kidney stones Depression Unknown Heart disease Depression Social History Social History Smoking packs per day: 1.25 Smoking cigarettes per day: 25.0 Years smoked: 16 Smoking pack-years: 20.00 Smoking status: Current every day smoker Tobacco type: cigarettes Second hand tobacco smoke exposure: Yes Alcohol intake: current Drinks per week: 6 Alcohol use details: hard liquor Substance use: never Substance use type: does not use Last use: 08/05/20 Living arrangements: with friend(s) Additional living arrangements comments: Lives w/ significant other and her child 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 Gender identity (if verbalized by the patient): Male Spiritual care concerns: No Anes - Eval Final PreProcedure Day of Procedure 09/19/20 10:41 Patient weight: normal Heart: regular rate and rhythm Lungs: clear to auscultation Airway: Mallampati scale class 1 and special considerations poor dentition Neurological: alert and oriented Last oral intake: >/= 8 hours ASA classification: III Emergent: no Anesthetic plan: proceed Anesthesia type and monitoring: general ETT and standard monitoring Informed Consent: The patient's anesthetic plan and its attendant risks and benefits were discussed with the patient/family/POA. Questions were solicited and answers provided to the satisfaction of the patient/family/POA.
--- NOTE | 2020-09-19 11:45 | WPDHPUPDATE1 ---
History and Physical Update Update Date/Time: 09/19/20 11:45 History and Physical has been reviewed, including an updated exam of the patient. There are NO changes in the patient's condition. Risks, benefits, and alternatives have been discussed and questions answered. Patient agrees to proceed with procedure.
--- NOTE | 2020-09-19 11:46 | PM.IMHP ---
H&P: HPI History of Present Illness Date/Time: 09/19/20 11:46 Chief Complaint: right groin pain Narrative: 25 yo man presents for diagnostic laparoscopy. He previously had a right inguinal hernia repair with mesh. He is seen today in preop. He has upper abdominal pain and pain radiates to the right groin, suprapubic region, and left groin. He denies any other changes since last seen in office. Review of Systems Review of Systems: All systems reviewed & are unremarkable except as noted in HPI and below Constitutional: Constitutional: Denies chills, Denies fever(s), Denies headache(s) and Denies weight loss Eyes: Eyes: Denies change in vision ENT: Denies dizziness, Denies headache(s), Denies neck mass and Denies throat swelling Cardiovascular: Cardiovascular: Denies chest pain, Denies lightheadedness and Denies dyspnea Respiratory: Respiratory: Denies cough, Denies dyspnea and Denies wheezing Gastrointestinal: Gastrointestinal: Denies abdominal pain, Denies change in bowel habits, Denies nausea and Denies vomiting Genitourinary: Genitourinary: Denies hematuria and Denies dysuria Musculoskeletal: Musculoskeletal: Reports as per HPI Integumentary/Breasts: Skin/Breast: Reports as per HPI Neurologic: Denies dizziness and Denies headache(s) Allergic/Immunologic: Allergic/Immunologic: Denies throat swelling and Denies wheezing PMFSH Past Medical History Medical History ADHD Depression Smoker Tobacco abuse Surgical History Surgical History H/O inguinal hernia repair 11/20/19 [facility] repair with mesh, davinci assisted S/P foot surgery, left Family History Family History Sibling Asthma ADHD Kidney stones Depression Unknown Heart disease Depression Social History Social History Smoking packs per day: 1.25 Smoking cigarettes per day: 25.0 Years smoked: 16 Smoking pack-years: 20.00 Smoking status: Current every day smoker Tobacco type: cigarettes Second hand tobacco smoke exposure: Yes Alcohol intake: current Drinks per week: 6 Alcohol use details: hard liquor Substance use: never Substance use type: does not use Last use: 08/05/20 Living arrangements: with friend(s) Additional living arrangements comments: Lives w/ significant other and her child 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 Gender identity (if verbalized by the patient): Male Spiritual care concerns: No Meds Home Medications and Allergies Home Medications Medication Instructions Recorded Confirmed Type hydrocortisone 2.5 applic TOPICAL BID 09/15/20 09/19/20 History nystatin 100,000 unit TOPICAL BID 09/15/20 09/19/20 History Allergies Allergy/AdvReac Type Severity Reaction Status Date / Time Antihistamines - Alkylamine AdvReac Intermediate Difficulty Verified 09/19/20 10:40 Breathing Vital Signs Vital Signs - 24 hr 09/19/20 10:30 Temperature 36.1 C L Pulse Rate 71 Respiratory Rate 16 Blood Pressure 134/80 Pulse Oximetry 100 Exam Const: General: no acute distress and alert Orientation/consciousness: patient oriented x3 HENMT: Head: normocephalic and atraumatic Ears: hearing grossly normal bilaterally General nose exam: Normal nares present Mouth: Yes Normal oral and palatal mucosa present Eyes: Periorbital: periorbital findings normal Sclera: sclerae normal EOM: EOMs intact bilaterally Neck: Neck: normal visual inspection, no lymphadenopathy and trachea midline Chest: Chest palpation & inspection: normal inspection of the chest Resp: Effort & Inspection: normal respiratory effort Auscultation: clear to auscultation bilaterally Cardio: Jugular venous distension: no JVD Rate: regular rate Rhythm: regular rh
[2020-09-19] MEDS: ceFAZolin 2 GM/D5W 50 ML 2 GM/50 ML BAG IVPB (11:58)
[2020-09-19] MEDS: BUPIVACAINE/EPINEPHRINE 0.5% 30 ML VIAL INFILTRATE (12:25)
--- NOTE | 2020-09-19 12:47 | W.PM.PROC2 ---
Procedure Note - Detailed Date of Procedure 09/19/20 Pre-op Diagnosis Right groin pain Post-op Diagnosis other (Incisional hernia, intra-abdominal adhesions) Procedure Performed 1. Incisional hernia repair 2. Laparoscopic adhesiolysis Surgeon Alex Quezada, DO Anesthesia general and local (0.25% bupivacaine with epinephrine) Indications This is a 25-year-old man who presents with persisting right groin pain. He previously underwent laparoscopic right inguinal hernia repair with mesh. He was doing well initially postoperatively, but several months ago he began experiencing recurrent right groin pain. At times he had the sensation of a bulge, however every time he was examined no recurrent hernia was identified. He was also experiencing some upper abdominal pains and pains in the suprapubic and left groin region. Discussions were made with the patient on treatment options and decision was made to proceed with diagnostic laparoscopy. Findings Upon making an incision at the old supraumbilical scar from his laparoscopic right inguinal hernia repair, I identified an incisional hernia containing preperitoneal fat. The hernia sac was excised and discarded. The hernia defect measured only about 6-8 mm in size. I was able to place a 5 mm port through the hernia defect. I inspected the abdominal cavity laparoscopically and there were a few omental adhesions up to the old mesh. The adhesions were taken down and the mesh was carefully inspected. The repair appeared intact with no signs of hernia recurrence. No other intra-abdominal abnormalities were noted. The incisional hernia was then repaired using 0 Ethibond [id number] suture x2 in a vertical fashion. Description of Procedure Procedure as well as risks, benefits, and alternatives were discussed with the patient. Written consent was obtained and placed in chart prior to procedure. Patient was brought back to surgical suite. He was placed supine on operating table. Time-out was done to confirm patient and procedure. A 1 cm incision was made transversely just superior to the umbilicus using a 15 blade scalpel. Blunt dissection was carried out down to the fascia and a hernia defect was noted just superior to the umbilicus. The hernia sac and preperitoneal fat was excised with electrocautery right at the level of the fascia. I was then able to use S retractors to enter into the abdominal cavity through the incisional hernia. A 5 mm laparoscopic port was then placed through this defect and carbon dioxide insufflation was used to create a pneumoperitoneum. The camera was inserted in the abdominal cavity was inspected. Patient was placed in slight Trendelenburg position. 5 mm incision was made in the left lower quadrant a 5 mm trocar was inserted under direct visualization. The right lower quadrant was carefully inspected and there were a few omental adhesions which were taken down using scissors with electrocautery. The previous mesh hernia repair in the right groin was inspected and the mesh appeared to be lying flat and in proper position with no signs of a recurrent hernia. The remainder of the abdominal cavity was inspected. No sign of a left inguinal hernia was identified. The bowel and omentum all appeared normal otherwise. The patient was then flattened out of bed the ports were removed and the camera was removed. Pneumoperitoneum was released. The incisional hernia just superior to the umbilicus was then repaired. 0 Ethibond [id number] sutures were placed in the fascia to bring the fascia together. A total of 2 sutures were placed in a vertical fashion to approximate the fascia. The sutures were tied down and placed in the repair was inspected and appeared secure. No other abnormalities were noted. 0.25% bupivacaine with epinephrine was infiltrated locally around the incisions. The skin of the incisions was then approximated using 4-0 Monocryl subcuticular sutures. Exofin glue was
[2020-09-19] MEDS: HYDROmorphone HCL INJ (*CRX) 1 MG/ML SYR 0.5 MG IV PUSH ×3 (13:18→13:50)
[2020-09-19] MEDS: oxyCODONE HCL (*CRX) 5 MG TAB IR PO (14:59)
== END 2020-09-19 15:03 | disposition home or self-care (01) ==
PROVIDERS: PCP Physician Assistant; Visit Provider Surgery
PROC: (CPT 49320; principal; 2020-09-19 12:00)
DX: K43.2 Incisional hernia without obstruction or gangrene (principal); R10.31 Right lower quadrant pain; K66.0 Peritoneal adhesions (postprocedural) (postinfection); F90.9 Attention-deficit hyperactivity disorder, unspecified type; F32.9 Major depressive disorder, single episode, unspecified; F17.210 Nicotine dependence, cigarettes, uncomplicated
CPT/HCPCS: 49654; A9270; J0330; J0690; J1100; J1170; J1885; J2250; J2405; J2704; J3010; J7030; J7120

== ENCOUNTER 2020-11-30 12:06 | Emergency (ER) | payer OTHER, SELFPAY ==
[2020-11-30 12:19] VITALS: BP 130/94; PULSE 96; RESP 18; TEMP 36.9; O2SAT 100
--- NOTE | 2020-11-30 12:39 | ED.URI ---
HPI - URI/Sore Throat General Chief Complaint: Upper Respiratory Infection Stated Complaint: possible sinus infection/bronchitis/also ck stitch Source: patient and RN notes reviewed Mode of arrival: ambulatory Limitations: no limitations History of Present Illness MD elicited complaint: cough, rhinorrhea and nasal congestion Pertinent past history: sinusitis Onset (ago): day(s) (3) Consistency: intermittent Severity: moderate Description of mucous: yellow Exacerbating factors: nothing Relieving factors: nothing Associated symptoms: nasal congestion and cough Related Data Home Medications Medication Instructions Recorded Confirmed hydrocortisone 2.5 applic TOPICAL BID 09/15/20 10/24/20 nystatin 100,000 unit TOPICAL BID 09/15/20 10/24/20 Allergies Allergy/AdvReac Type Severity Reaction Status Date / Time Antihistamines - Alkylamine AdvReac Intermediate Difficulty Verified 10/24/20 10:57 Breathing Review of Systems Review of Systems: All systems reviewed & are unremarkable except as noted in HPI and below Constitutional: Constitutional: Denies chills, Denies fever(s) and Denies weakness ENT: Reports dizziness and Denies sore throat PMFSH Past Medical History Medical History ADHD Depression Smoker Tobacco abuse Surgical History Surgical History H/O inguinal hernia repair 11/20/19 [facility] repair with mesh, davinci assisted H/O laparoscopy 09/19/20 Incisional hernia repair 2. Laparoscopic adhesiolysis S/P foot surgery, left Family History Family History Sibling Asthma ADHD Kidney stones Depression Unknown Heart disease Depression Social History Social History Smoking packs per day: 1.25 Smoking cigarettes per day: 25.0 Years smoked: 16 Smoking pack-years: 20.00 Smoking status: Current every day smoker Tobacco type: cigarettes Second hand tobacco smoke exposure: Yes Alcohol intake: current Drinks per week: 6 Alcohol use details: hard liquor Substance use: never Substance use type: does not use Last use: 08/05/20 Additional living arrangements comments: Lives w/ significant other and her child 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 Gender identity (if verbalized by the patient): Male Sexual Orientation (if Verbalized by the Patient): Straight or Heterosexual Spiritual care concerns: No Exam Const: General: healthy appearing, no acute distress and alert Nutritional Appearance: well nourished and thin Orientation/consciousness: patient oriented x3 HENMT: Head: normal to inspection, normocephalic and atraumatic Ears: external ears normal and TM's normal bilaterally General nose exam: Abnormal mucous membranes and turbinates present boggy bilateral and erythematous bilateral and diffuse Face and sinus: normal facial exam Mouth: Yes Normal oral and palatal mucosa present and Yes moist mucous membranes Throat: posterior oropharynx abnormal cobblestoning Resp: Effort & Inspection: normal respiratory effort Auscultation: clear to auscultation bilaterally, no crackles, no rales and no rhonchi Cardio: Rate: regular rate Rhythm: regular rhythm GI: GI Palp: Yes Soft to palpation and No Tenderness to palpation present (GI) Auscultation: normal bowel sounds Back/Spine/Pelvis: Cervical Spine: cervical ROM normal Thoracic/Lumbar Spine: thoraco-lumbar ROM normal Skin: General skin exam: normal color Rashes: no rashes Neuro: General: patient oriented x3, moves all extremities, no meningeal signs and no focal motor deficits Speech: normal speech Gait exam (Neuro): Normal gait present Extrem: General: normal to inspection and no clubbing, cyanosis or edema Psych: Appearance: grossly normal and well kempt
== END 2020-11-30 13:02 | disposition home or self-care (01) ==
PROVIDERS: Emergency Provider Emergency Medicine; PCP Physician Assistant
DX: J40 Bronchitis, not specified as acute or chronic (principal); J01.90 Acute sinusitis, unspecified
CPT/HCPCS: 99281

== ENCOUNTER 2020-12-02 12:25 | Emergency (ER) | payer OTHER, SELFPAY ==
[2020-12-02] VITALS (11 sets, daily range): BP systolic 108–138; BP diastolic 62–96; PULSE 72–86; RESP 12–18; TEMP 36.5–36.6; O2SAT 97–100
[2020-12-02 13:18] LABS: Basophils Absolute Auto 0.1 K/mm3 (0.0-0.1); Basophils Percent Auto 0.6 % (0.2-1.2); Eosinophils Absolute Auto 0.2 K/mm3 (0-0.3); Eosinophils Percent Auto 2.8 % (0-4.4); Hematocrit 49.6 % (42.0-52.0); Hemoglobin 17.1 g/dL (14.0-18.0); Immature Granulocyte Absolute 0.02 K/mm3 (0.00-0.031); Immature Granulocyte Percent A 0.3 % (0-0.5); Lymphocytes Absolute Auto 1.78 K/mm3 (0.9-3.2); Lymphocytes Percent Auto 22.8 % (18.3-44.2); Mean Corpuscular HGB Conc 34.5 g/dl (32-36); Mean Corpuscular Hemoglobin 32.4 pg (26-34); Mean Corpuscular Volume 93.9 fl (80-100); Mean Platelet Volume 9.2 fl (7.4-10.4); Monocytes Percent Auto 12.8 % (2.6-8.5); Neutrophils Absolute Auto 4.7 K/mm3 (1.3-6.7); Neutrophils Percent Auto 60.7 % (45.5-73.1); Platelet Count Result 283 k/mm3 (150-375); Red Blood Count 5.28 M/mm3 (4.6-6.20); Red Cell Distribution Width 12.6 % (11.5-14.5); White Blood Count 7.8 K/mm3 (4.5-10.0)
[2020-12-02 13:29] LABS: Alanine Aminotransferase 35 U/L (4-50); Albumin Level 4.7 g/dL (3.5-5.1); Alkaline Phosphatase 87 U/L (38-126); Anion Gap 10 mmol/L (8-16); Aspartate Amino Transferase 31 U/L (17-59); Bilirubin,Total 0.4 mg/dL (0.2-1.3); Blood Urea Nitrogen 16 mg/dL (9-20); Calcium 9.8 mg/dL (8.4-10.2); Carbon Dioxide 25 mmol/L (22-30); Chloride 107 mmol/L (98-107); Estimated CRCL calculation 122 ml/min; Estimated Glomerular Filt Rate > 60; Glucose 97 mg/dL (65-110); Lipase 46 U/L (23-300); Potassium 4.2 mmol/L (3.4-5.0); Sodium 142 mmol/L (137-145)
--- NOTE | 2020-12-02 13:43 | ED.GIBLEED ---
HPI - GI Bleed General Chief complaint: GI Bleed Stated complaint: blood in stool Time Seen by Provider: 12/02/20 12:49 Source: patient Mode of arrival: ambulatory Limitations: no limitations History of Present Illness HPI Narrative: 25-year-old with history of multiple hernia repair here with complaints of rectal bleeding on and off for past several months. Patient states every time he has a bowel movement he has bright red blood in the stool. Denies passing any clots. Has abdominal pain from the abdominal surgery . Patient states that he is not constipated. No history of any nausea or vomiting. He is not on any blood thinners. Related Data Home Medications Medication Instructions Recorded Confirmed hydrocortisone 2.5 applic TOPICAL BID 09/15/20 10/24/20 nystatin 100,000 unit TOPICAL BID 09/15/20 10/24/20 Allergies Allergy/AdvReac Type Severity Reaction Status Date / Time Antihistamines - Alkylamine AdvReac Intermediate Difficulty Verified 12/02/20 12:49 Breathing Review of Systems Review of Systems: All systems reviewed & are unremarkable except as noted in HPI and below Constitutional: Constitutional: Reports no additional constitutional complaints Eyes: Eyes: Reports no additional eye complaints ENT: Reports system reviewed and no additional complaints, except as documented Cardiovascular: Cardiovascular: Reports no additional cardiovascular complaints Respiratory: Respiratory: Reports no additional respiratory complaints Gastrointestinal: Gastrointestinal: Reports as per HPI Musculoskeletal: Musculoskeletal: Reports no additional musculoskeletal complaints Integumentary/Breasts: Skin/Breast: Reports system reviewed and no additional complaints, except as docu Neurologic: Reports system reviewed and no additional complaints, except as documented Psychiatric: Psychiatric: Reports no additional psychiatric complaints [facility] Past Medical History Medical History ADHD Depression Smoker Tobacco abuse Surgical History Surgical History H/O inguinal hernia repair 11/20/19 [facility] repair with mesh, davinci assisted H/O laparoscopy 09/19/20 Incisional hernia repair 2. Laparoscopic adhesiolysis S/P foot surgery, left Family History Family History Sibling Asthma ADHD Kidney stones Depression Unknown Heart disease Depression Social History Social History Smoking packs per day: 1.25 Smoking cigarettes per day: 25.0 Years smoked: 16 Smoking pack-years: 20.00 Smoking status: Current every day smoker Tobacco type: cigarettes Second hand tobacco smoke exposure: Yes Alcohol intake: current Drinks per week: 6 Alcohol use details: hard liquor Substance use: never Substance use type: does not use Last use: 08/05/20 Additional living arrangements comments: Lives w/ significant other and her child 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 HEAD: Normocephalic, atraumatic. EYES: PERRLA and EOMI. NECK: Supple. CHEST: Clear to auscultation. No respiratory distress. HEART: Regular rate and rhythm. No murmur heard. Normal peripheral pulses. ABDOMEN: Soft, nontender, nondistended, normal active bowel sounds.has surgical scar above the umbilicus Rectal gross blood . No obvious external hemorrhoids. EXTREMITIES: Normal range of motion. No edema. SKIN: Warm, dry, no rash. NEURO: No focal deficits. Alert and oriented x3. PSYCH: Normal mood and affect. Course Course Emergenc
--- NOTE | 2020-12-02 13:50 | PC.NURSE ---
Pt up for discharge. Clarified with MD, OK to discharge without IVF. Order cancelled
== END 2020-12-02 14:08 | disposition home or self-care (01) ==
PROVIDERS: Emergency Provider Family Medicine; PCP Physician Assistant
DX: K62.5 Hemorrhage of anus and rectum (principal); K64.9 Unspecified hemorrhoids; F17.210 Nicotine dependence, cigarettes, uncomplicated
CPT/HCPCS: 36415; 80053; 83690; 85025; 99283

== ENCOUNTER 2020-12-18 15:49 | Emergency (ER) | payer OTHER, SELFPAY ==
--- NOTE | ~2020-12-18 | US_ITS ---
EXAMINATION: US soft tissue chest EXAM DATE: 12/18/2020 17:23 INDICATION: right chest wall abnormality . TECHNIQUE: Multiple grayscale and Doppler images of the chest soft tissue symptomatic region were obt ained (by a technologist who performed the scan) and subsequently reviewed. There is no prior study for comparison. FINDINGS: Scanning in the area of concern annotated right anterior upper chest area of lump demonstrates unrema rkable skin, subcutaneous fat, thoracic musculature. There are ribs with artifact deep to these. IMPRESSION: 1. No right anterior chest sonographic abnormality. Reviewed, dictated and finalized at location A. [employer]
[2020-12-18 16:02] VITALS: BP 130/69; PULSE 81; RESP 18; TEMP 36.1; O2SAT 98
--- NOTE | 2020-12-18 18:54 | ED.GENADULT ---
HPI - General Adult General Chief complaint: Unspecified Stated complaint: sent by dr for chest xray Time Seen by Provider: 12/18/20 16:53 Source: patient Mode of arrival: ambulatory Limitations: no limitations History of Present Illness HPI narrative: Patient is a 25-year-old male with chief complaint of firm mass of his right chest wall that he brought him to his primary care during the visit today and they sent him to the emergency department for imaging. Patient reports that his right pectoral muscle does not the same as his left. Patient reports that there is some discomfort with range of motion. Patient reports that this has been this way for a few years. Patient denies any change in his symptoms Related Data Home Medications Medication Instructions Recorded Confirmed hydrocortisone 2.5 applic TOPICAL BID 09/15/20 10/24/20 nystatin 100,000 unit TOPICAL BID 09/15/20 10/24/20 Allergies Allergy/AdvReac Type Severity Reaction Status Date / Time Antihistamines - Alkylamine AdvReac Intermediate Difficulty Verified 12/18/20 15:28 Breathing Review of Systems Review of Systems: CONSTITUTIONAL: Denies fever, chills, or sweats. EYES: Denies visual changes, redness, or discharge. ENT: Denies rhinorrhea, congestion, sore throat, or otalgia. CARDIOVASCULAR: Reports chest wall concern denies chest pain, palpitations, or edema. RESPIRATORY: Denies cough or dyspnea. GASTROINTESTINAL: Denies abdominal pain, nausea, vomiting, or diarrhea. GENITOURINARY: Denies dysuria or hematuria. SKIN: Denies rash or itching. MUSCULOSKELETAL: Denies back pain, joint pain, or myalgia. NEUROLOGIC: Denies headache, numbness, dizziness, or weakness. PSYCHIATRIC: Denies anxiety or depression. [facility] Past Medical History Medical History (Updated 12/18/20 @ 18:54 by Rylee Gibbons PA-C) ADHD Depression Rectal bleeding Smoker Tobacco abuse Surgical History Surgical History (Updated 12/18/20 @ 15:47 by Vince Holland MD) H/O inguinal hernia repair 11/20/19 [facility] repair with mesh, davinci assisted H/O laparoscopy 09/19/20 Incisional hernia repair 2. Laparoscopic adhesiolysis S/P foot surgery, left Family History Family History Sibling Asthma ADHD Kidney stones Depression Unknown Heart disease Depression Social History Social History (Updated 12/18/20 @ 15:28 by Ofelia Ball CMA) Smoking packs per day: 1.25 Smoking cigarettes per day: 25.0 Years smoked: 16 Smoking pack-years: 20.00 Tobacco type: cigarettes Second hand tobacco smoke exposure: Yes Alcohol intake: current Drinks per week: 6 Alcohol use details: hard liquor Substance use: current Substance use type: marijuana Last use: 08/05/20 Additional living arrangements comments: Lives w/ significant other and her child 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 HEAD: Normocephalic, atraumatic. EYES: PERRLA and EOMI. CHEST: Tenderness to palpation of right rib area. No erythema or fluctuance appreciated. Some discrepancy noted. Healing of right versus left pectoral. clear to auscultation. No respiratory distress. No wheezes rales or rhonchi HEART: Regular rate and rhythm. No murmur heard. Normal peripheral pulses. EXTREMITIES: Normal range of motion. No edema. SKIN: Warm, dry, no rash. NEURO: No focal deficits. Alert and oriented x3. PSYCH: Normal mood and affect. Course Vital Signs Vital signs: Vital Signs Temperature 96.9 F L 12/18/20 16:02 Pulse Rate 81 12/18/20 16:02 Respiratory Rate 18 12/18/20 16:02 Blood Pressure 130/69 12/18/20 16:02 Pulse Oxim
== END 2020-12-18 18:05 | disposition home or self-care (01) ==
LOC: ANHED 18:12
PROVIDERS: Emergency Provider Emergency Medicine; PCP Physician Assistant
DX: R22.2 Localized swelling, mass and lump, trunk (principal); F17.210 Nicotine dependence, cigarettes, uncomplicated
CPT/HCPCS: 76604; 99284

== ENCOUNTER → 2021-02-21 00:12 | Outpatient (CLI) | payer OTHER, SELFPAY ==
[2021-02-21 14:34] LABS: SARS-CoV-2 RNA PCR Negative
== END ==
PROVIDERS: PCP Physician Assistant; Visit Provider Internal Medicine Gastroenterology
DX: Z01.812 Encounter for preprocedural laboratory examination (principal); Z20.822 Contact with and (suspected) exposure to COVID-19
CPT/HCPCS: C9803; U0003; U0005

== ENCOUNTER 2021-02-25 01:06 | Day surgery (SDC) | payer OTHER, SELFPAY ==
[2021-02-17 12:28] VITALS: BMI 23.4
--- NOTE | 2021-02-25 07:48 | WPDANESEPPF ---
Anes - Initial Pre Proc Eval Procedure: Operation Date: 02/25/21 14:00 Proposed Procedures p Colonoscopy - Vince Holland MD Date/Time: 02/25/21 07:48 Surgeon: Vince Holland MD Pre Op Diagnosis: rectal bleed Patient Data Age: 26 Gender: M Height: 1.7 m Weight: 68 kg Allergies Allergy/AdvReac Type Severity Reaction Status Date / Time Antihistamines - Alkylamine AdvReac Intermediate Difficulty Verified 02/25/21 12:20 Breathing Home Medications Medication Instructions Recorded Confirmed Type cyclobenzaprine 10 mg PO BID PRN 02/17/21 02/25/21 History Patient hx anesthesia problems: none Family hx anesthesia problems: none Results Review: All pre-operative results and documents have been reviewed as part of the pre-operative evaluation. [facility] Past Medical History Medical History (Updated 02/25/21 @ 07:48 by Devonte Edward DO) ADHD Bipolar disorder Depression Rectal bleeding Smoker Tobacco abuse Surgical History Surgical History (Updated 12/18/20 @ 15:47 by Vince Holland MD) H/O inguinal hernia repair 11/20/19 [facility] repair with mesh, davinci assisted H/O laparoscopy 09/19/20 Incisional hernia repair 2. Laparoscopic adhesiolysis S/P foot surgery, left Family History Family History Sibling Asthma ADHD Kidney stones Depression Unknown Heart disease Depression Social History Social History (Updated 12/18/20 @ 15:28 by Ofelia Ball CMA) Smoking packs per day: 1.5 Smoking cigarettes per day: 30.0 Years smoked: 17 Smoking pack-years: 25.50 Smoking status: Current every day smoker Tobacco type: cigarettes Second hand tobacco smoke exposure: Yes Alcohol intake: current Drinks per week: 6 Alcohol use details: hard liquor Substance use: current Substance use type: marijuana Last use: 08/05/20 Living arrangements: with family Additional living arrangements comments: Lives w/ significant other and her child 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 Gender identity (if verbalized by the patient): Male Sexual Orientation (if Verbalized by the Patient): Straight or Heterosexual Spiritual care concerns: No Anes - Eval Final PreProcedure Day of Procedure 02/25/21 07:48 Patient weight: normal Heart: regular rate and rhythm Lungs: clear to auscultation and normal air movement Airway: Mallampati scale class II Neurological: alert and oriented Last oral intake: >/= 8 hours ASA classification: III Emergent: no Anesthetic plan: proceed Anesthesia type and monitoring: general GIVS and standard monitoring Results Review: All pre-operative results and documents have been reviewed as part of the pre-operative evaluation. Informed Consent: The patient's anesthetic plan and its attendant risks and benefits were discussed with the patient/family/POA. Questions were solicited and answers provided to the satisfaction of the patient/family/POA.
[2021-02-25 12:21] VITALS: BP 154/98; PULSE 87; RESP 16; TEMP 36.2; O2SAT 100; BMI 23.3
[2021-02-25] MEDS: LACTATED RINGERS 1,000 ML 150 ML IV CONT (12:31)
--- NOTE | 2021-02-25 12:57 | PM.HPGS ---
History of Present Illness History of Present Illness Consent: Risks, benefits, and alternatives have been discussed and questions answered. Patient agrees to proceed with procedure. Chief complaint: rectal bleed Narrative: Matias Calvin is a 26 year old male with intermittent rectal bleeding Review of Systems Constitutional: Constitutional: Denies headache(s) and Denies weakness Eyes: Eyes: Denies blurry vision ENT: Reports Normal hearing present, Denies headache(s) and Denies neck pain Cardiovascular: Cardiovascular: Denies chest pain and Denies dyspnea Respiratory: Respiratory: Denies dyspnea Gastrointestinal: Gastrointestinal: Reports no additional gastrointestinal complaints Genitourinary: Genitourinary: Denies dysuria Musculoskeletal: Musculoskeletal: Denies neck pain Integumentary/Breasts: Skin/Breast: Denies dry skin Neurologic: Reports Normal hearing present, Denies headache(s) and Denies weakness Psychiatric: Psychiatric: Denies anxiety Endocrine: Endocrine: Denies change in body appearance Hematologic/Lymphatic: Hematologic/Lymphatic: Denies easy bleeding Allergic/Immunologic: Allergic/Immunologic: Denies urticaria PMF Past Medical History Medical History (Updated 02/25/21 @ 07:48 by Devonte Edward DO) ADHD Bipolar disorder Depression Rectal bleeding Smoker Tobacco abuse Surgical History Surgical History (Updated 12/18/20 @ 15:47 by Vince Holland MD) H/O inguinal hernia repair 11/20/19 [facility] repair with mesh, davinci assisted H/O laparoscopy 09/19/20 Incisional hernia repair 2. Laparoscopic adhesiolysis S/P foot surgery, left Family History Family History Sibling Asthma ADHD Kidney stones Depression Unknown Heart disease Depression Social History Social History (Updated 12/18/20 @ 15:28 by Ofelia Ball CMA) Smoking packs per day: 1.5 Smoking cigarettes per day: 30.0 Years smoked: 17 Smoking pack-years: 25.50 Smoking status: Current every day smoker Tobacco type: cigarettes Second hand tobacco smoke exposure: Yes Alcohol intake: current Drinks per week: 6 Alcohol use details: hard liquor Substance use: current Substance use type: marijuana Last use: 08/05/20 Living arrangements: with family Additional living arrangements comments: Lives w/ significant other and her child 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 Gender identity (if verbalized by the patient): Male Sexual Orientation (if Verbalized by the Patient): Straight or Heterosexual Spiritual care concerns: No Meds Home Medications and Allergies Home Medications Medication Instructions Recorded Confirmed Type cyclobenzaprine 10 mg PO BID PRN 02/17/21 02/25/21 History Allergies Allergy/AdvReac Type Severity Reaction Status Date / Time Antihistamines - Alkylamine AdvReac Intermediate Difficulty Verified 02/25/21 12:20 Breathing Vital Signs Vital Signs - 24 hr 02/25/21 12:21 Temperature 97.1 F L Pulse Rate 87 Respiratory Rate 16 Blood Pressure 154/98 H Pulse Oximetry 100 Exam Const: General: comfortable and no acute distress HENMT: General nose exam: Normal nares present Eyes: General: appearance normal, both eyes and all related structures Neck: Neck: no JVD Resp: Auscultation: clear to auscultation bilaterally Cardio: Rate: regular rate Rhythm: regular rhythm GI: Inspection: non-distended GI Palp: Yes Soft to palpation Skin: General skin exam: normal color Neuro: General: gait normal Speech: normal speech Extrem: General: normal to inspection Psych: Mental Status: mental status grossly normal Assessment and Plan Assessment and plan (1) Rectal bleeding: Code(s): K62.5 - Hemorrhage of anus and rectum Status: Acute Assessment and Plan: colonoscopy
[2021-02-25 13:15] VITALS: BP 98/66; PULSE 78; RESP 18; O2SAT 97
[2021-02-25 13:25] VITALS: BP 104/66; PULSE 68; RESP 26; O2SAT 97
[2021-02-25 13:35] VITALS: BP 111/76; PULSE 66; RESP 20; O2SAT 100
== END 2021-02-25 13:43 | disposition home or self-care (01) ==
PROVIDERS: PCP Physician Assistant; Visit Provider Internal Medicine Gastroenterology
PROC: 0DJD8ZZ Inspection of Lower Intestinal Tract, Via Natural or Artificial Opening Endoscopic (ICD-10-PCS; CPT 45378; principal; 2021-02-25 14:00)
DX: K62.5 Hemorrhage of anus and rectum (principal); K64.8 Other hemorrhoids; F17.210 Nicotine dependence, cigarettes, uncomplicated; F12.90 Cannabis use, unspecified, uncomplicated
CPT/HCPCS: 45378; J2704; J7120

== ENCOUNTER 2021-04-28 12:23 | Outpatient (CLI) | payer OTHER, SELFPAY ==
--- NOTE | ~2021-04-28 | XR_ITS ---
EXAMINATION: XR chest 2V 04/28/2021 12:39 INDICATION: Costochondritis. Right-sided chest pain. PROCEDURE: 2 view chest COMPARISON: 01/03/2020 FINDINGS: The lungs are clear. The cardiomediastinal silhouette is within normal limits. There are no pleural effusions. There is no pneumothorax suspected. IMPRESSION: 1: NO ACUTE CARDIOPULMONARY DISEASE. Reviewed, dictated and finalized at location A.
== END 2021-04-28 12:24 | disposition home or self-care (01) ==
LOC: CHSIMG 12:26
PROVIDERS: PCP Physician Assistant; Visit Provider Physician Assistant
DX: M94.0 Chondrocostal junction syndrome [Tietze] (principal)
CPT/HCPCS: 71046

== ENCOUNTER 2021-07-29 10:07 | Outpatient (CLI) | payer OTHER, SELFPAY ==
--- NOTE | 2021-07-29 11:00 | NEURO_ITS ---
Impression: # Complains of right wrist pain. # Mild right ulnar neuropathy across the elbow. # Normal needle/EMG exam. # Clinical correlation recommended. Nerve Conduction Studies Anti Sensory Summary Table Stim Site NR Peak (ms) P-T Amp (?V) Site1 Site2 Delta-P (ms) Dist (cm) Guillermo (m/s) Right Median Anti Sensory (2-3nd Digit) Wrist 2.8 78.6 Wrist 2-3nd Digit 2.8 14.0 50 Wrist 2.8 57.1 Wrist 2-3nd Digit 2.8 14.0 50 Right Radial Anti Sensory (Base 1st Digit) Wrist 2.3 16.9 Wrist Base 1st Digit 2.3 0.0 Right Ulnar Anti Sensory (5th Digit) Wrist 2.5 52.1 Wrist 5th Digit 2.5 14.0 56 Motor Summary Table Stim Site NR Onset (ms) O-P Amp (mV) Site1 Site2 Delta-0 (ms) Dist (cm) Guillermo (m/s) Right Median Motor (Abd Poll Brev) Wrist 3.4 4.7 Elbow Wrist 4.6 27.0 59 Elbow 8.0 3.9 Right Ulnar Motor (Abd Dig Minimi) Wrist 2.3 7.7 A Elbow Wrist 5.7 29.0 51 A Elbow 8.0 6.2 B Elbow Wrist 3.6 19.0 53 B Elbow 5.9 7.1 F Wave Studies NR F-Lat (ms) L-R F-Lat (ms) Right Median (Mrkrs) (Abd Poll Brev) 28.42 Right Ulnar (Mrkrs) (Abd Dig Min) 29.67 EMG Side Muscle Nerve Root Ins Act Fibs Amp Dur Recrt Comment Right 1stDorInt Ulnar C8-T1 Nml Nml Nml Nml Nml Right Ext Indicis Radial (Post Int) C7-8 Nml Nml Nml Nml Nml Right Ext Digitorum Radial (Post Int) C7-8 Nml Nml Nml Nml Nml Right BrachioRad Radial C5-6 Nml Nml Nml Nml Nml Right PronatorTeres Median C6-7 Nml Nml Nml Nml Nml Right Abd Poll Brev Median C8-T1 Nml Nml Nml Nml Nml Right ABD Dig Min Ulnar C8-T1 Nml Nml Nml Nml Nml MTDD
== END 2021-07-29 10:08 | disposition home or self-care (01) ==
LOC: ANHCARD 10:11
PROVIDERS: PCP Physician Assistant; Visit Provider Physician Assistant
DX: G56.01 Carpal tunnel syndrome, right upper limb (principal)
CPT/HCPCS: 95886; 95909

== ENCOUNTER 2021-08-04 12:23 | Outpatient (CLI) | payer OTHER, SELFPAY ==
--- NOTE | ~2021-08-04 | US_ITS ---
EXAMINATION: US retroperitoneal comp DATE: 08/04/2021 12:57 INDICATION: Lower urinary tract symptoms, frequent urination TECHNIQUE: Multiple grayscale and Doppler ultrasound images of the kidneys were obtained. COMPARISON: CT, 05/23/2020 FINDINGS: The right kidney measures 10.4 x 4.3 x 4.7 cm. The left kidney measures 11.1 x 4.9 x 4.8 cm . The kidneys demonstrate normal parenchymal echogenicity. There is no hydronephrosis. The bladder is normal in appearance. Prevoid volume is 430 cc and postvoid volume is 16 cc. Incidental note is made of a 1.5 cm hemangioma of the right hepatic lobe seen on prior CT. IMPRESSION: 1. Normal kidneys without hydronephrosis. Unremarkable bladder. Reviewed, dictated and finalized at location A.
== END 2021-08-04 12:24 | disposition home or self-care (01) ==
LOC: CHSIMG 12:25
PROVIDERS: PCP Physician Assistant
DX: R39.9 Unspecified symptoms and signs involving the genitourinary system (principal)
CPT/HCPCS: 76770

== ENCOUNTER 2021-11-12 09:56 | Outpatient (CLI) | payer OTHER, SELFPAY ==
--- NOTE | ~2021-11-12 | CT_ITS ---
EXAMINATION: CT abdomen pelvis w con DATE: 11/12/2021 10:20 INDICATION: Left lower quadrant and right inguinal pain TECHNIQUE: Computed tomography (CT) of the abdomen and pelvis was performed with 100 cc Omnipaque 350 intravenous contrast. The dose-length product was 259.61 mGy-cm. Automated exposure control and iter ative reconstruction technique were employed. COMPARISON: CT dated 05/23/2020 FINDINGS: Lung bases are unremarkable. Heart size normal. No significant pleural or pericardial effus ion. There is segmental thickening of the transverse colon, suspicious for colitis. No obstruction. N o evidence for hernia. No significant vascular abnormality. Small focal hypovascular lesions of the right hepatic lobe, unchanged, likely benign hemangiomas in t he absence of known malignancy. Gallbladder is present. Normal appendix. No free air or free fluid. N o acute osseous abnormality. Mild levoscoliosis. Vertebral body heights are maintained. IMPRESSION: 1. Segmental thickening of the transverse colon, suspicious for colitis, most likely infectious or in flammatory. 2: Stable hypovascular lesions right hepatic lobe, largest measuring 1.5 cm, likely benign in the ab sence of known malignancy. Reviewed, dictated and finalized at location A. IMPRESSION: 1. Segmental thickening of the transverse colon, suspicious for colitis, most l ikely infectious or inflammatory. 2: Stable hypovascular lesions right hepatic lobe, largest measuring 1.5 cm, l ikely benign in the absence of known malignancy.
== END 2021-11-12 09:57 | disposition home or self-care (01) ==
PROVIDERS: PCP Physician Assistant; Visit Provider Surgery
DX: R10.31 Right lower quadrant pain (principal); R10.32 Left lower quadrant pain; K76.89 Other specified diseases of liver
CPT/HCPCS: 74177; Q9967

== ENCOUNTER 2022-01-03 10:56 | Emergency (ER) | payer OTHER, SELFPAY ==
[2022-01-03 10:59] VITALS: BP 144/89; PULSE 85; RESP 16; TEMP 37.1; O2SAT 100
[2022-01-03 11:05] VITALS: BP 144/89; PULSE 79; RESP 16; TEMP 36.6; O2SAT 100
--- NOTE | 2022-01-03 11:09 | ED.EXTPRO ---
HPI - Extremity Problem General Chief complaint: Extremity Injury, Upper Stated complaint: left shoulder pain Time Seen by Provider: 01/03/22 11:08 Source: patient and RN notes reviewed Mode of arrival: ambulatory Limitations: no limitations History of Present Illness Complaint: extremity pain ( Denies any injury) Onset (ago): day(s) (8) Pain Consistency: constant Location: left and upper extremity (shoulder) Quality: aching, dull and constant Radiation: none Relieving factors: nothing Exacerbating factors: range of motion Associated symptoms: denies other symptoms Related Data Home Medications Medication Instructions Recorded Confirmed cyclobenzaprine 10 mg tablet 10 mg PO BID PRN Muscle Spasm 02/17/21 01/03/22 Allergies Allergy/AdvReac Type Severity Reaction Status Date / Time Antihistamines - Alkylamine AdvReac Intermediate Difficulty Verified 01/03/22 11:11 Breathing Review of Systems Review of Systems: All systems reviewed & are unremarkable except as noted in HPI and below PMFSH Past Medical History Medical History ADHD Bipolar disorder Depression Rectal bleeding Smoker Tobacco abuse Surgical History Surgical History H/O inguinal hernia repair 11/20/19 RIH repair with mesh, davinci assisted H/O laparoscopy 09/19/20 Incisional hernia repair 2. Laparoscopic adhesiolysis S/P foot surgery, left Family History Family History Sibling Asthma ADHD Kidney stones Depression Unknown Heart disease Depression Social History Social History Smoking packs per day: 1.5 Smoking cigarettes per day: 30.0 Years smoked: 17 Smoking pack-years: 25.50 Smoking status: Current every day smoker Tobacco type: cigarettes Second hand tobacco smoke exposure: Yes Alcohol intake: current Drinks per week: 6 Alcohol use details: hard liquor Substance use: current Substance use type: marijuana Last use: 08/05/20 Additional living arrangements comments: Lives w/ significant other and her child 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 Gender identity (if verbalized by the patient): Male Sexual Orientation (if Verbalized by the Patient): Straight or Heterosexual Spiritual care concerns: No Exam Const: General: healthy appearing, no acute distress and alert Nutritional Appearance: well nourished Orientation/consciousness: patient oriented x3 Limitations: no limitations HENMT: Head: normal to inspection Ears: external ears normal Eyes: Conjunctivae: conjunctivae normal Pupils: Equal, round and reactive pupils present EOM: EOMs intact bilaterally Neck: Neck: normal visual inspection Resp: Effort & Inspection: normal respiratory effort Auscultation: clear to auscultation bilaterally Cardio: Rate: regular rate Rhythm: regular rhythm GI: GI Palp: Yes Soft to palpation and No Tenderness to palpation present (GI) Auscultation: normal bowel sounds Back/Spine/Pelvis: Cervical Spine: cervical ROM normal Thoracic/Lumbar Spine: thoraco-lumbar ROM normal, paraspinal muscle tenderness on the left in the upper thoracic and thoraco-lumbar spasm on the left in the upper thoracic ( just medial to the scapula) Skin: General skin exam: normal color Wounds: no wounds Neuro: General: patient oriented x3, moves all extremities, no focal motor deficits and CN's II-XI intact bilaterally Speech: normal speech Gait exam (Neuro): Normal gait present Extrem: General: normal to inspection and no clubbing, cyanosis or edema Psych: Mental Status: mental status grossly normal Affect: normal affect Attitude: cooperative Course Vital Signs Vital signs: Vital Signs Temperature 37.1 C 01/03/22 10:59 Pulse Rate 85 01/03/22 10:5
[2022-01-03] MEDS: KETOROLAC 30 MG/ML VIAL (*BKC) IM (11:36)
[2022-01-03 11:41] VITALS: BP 144/89; PULSE 79; RESP 18; TEMP 36.6; O2SAT 100
== END 2022-01-03 11:43 | disposition home or self-care (01) ==
LOC: CHSED 11:33
PROVIDERS: Emergency Provider Emergency Medicine; PCP Physician Assistant
DX: S46.912A Strain of unspecified muscle, fascia and tendon at shoulder and upper arm level, left arm, initial encounter (principal)
CPT/HCPCS: 96372; 99283; J1885

== ENCOUNTER 2022-02-15 14:00 | Outpatient (RCR) | payer OTHER, SELFPAY ==
--- NOTE | 2022-02-15 14:47 | PTOPEVAL1 ---
Assessment and note entered by Randy Berry Evaluation Information Assessment Status Evaluation Diagnosis left shoulder pain Onset 01/21/22 Subjective Information Pt. reports that he began noting left shoulder pain about 2 months ago. He reports no indicent, just woke with pain. He describes pain along the left shoulder blade, wrapping around the shoulder and down the left arm into the pinky finger. He reports that worst points of pain were in the elbow. He states no hx of neck injury. He reports that symptoms have decreased but still has numbness and tingling in the pinky and ring finger of the left arm. He reports that he can do all normal activities, but has occasionally dropped items with the left hand. He reports that his goal is to decrease the numbness in the left hand. Reported Pain Level Pain Score 0: Self Report Assessment PT Clinical Summary Pt. is a 27 year old male who enters the clinic with left shoulder pain. Pt. current presentation is consistent with cervical radiculopathy. He present with impaired postural awareness, impaired proximal u.e. strength and pain on this date. continued treatment is indicated in order to improve these areas to allow the pt. to participate in all IADL's with improved comfort. Plan of Care Interventions Electrical Stimulation,Hot Pack/Cold Pack,Manual Therapy,Mechanical Traction,Therapeutic Activities ,Therapeutic Exercise PT Services Indicated Yes Treatment Frequency and 2x/week x 6 visits Duration These treatments will address the objective and functional deficits as defined above. The patient will be advanced safely and appropriately in order for the patient to progress towards his/her prior level of function. Additional exercises will be introduced and as well as a comprehensive home exercise program upon discharge, if needed, ?to ensure carryover of functional gains achieved in the clinic. This treatment plan has been reviewed and agreement upon by the patient.
== END 2022-03-12 23:59 | disposition home or self-care (01) ==
LOC: CHSPT 14:00
PROVIDERS: PCP Physician Assistant; Visit Provider Physician Assistant
DX: M25.512 Pain in left shoulder (principal)
CPT/HCPCS: 97014; 97110; 97140; 97161; G0283

== ENCOUNTER 2022-03-23 02:21 | Day surgery (SDC) | payer OTHER, SELFPAY ==
[2022-02-15 13:50] VITALS: BMI 23.4
--- NOTE | 2022-03-02 07:27 | WPDANESEPPF ---
Anes - Initial Pre Proc Eval Procedure: Operation Date: 03/02/22 10:30 Proposed Procedures p Flexible Sigmoidoscopy - Vince Holland MD Date/Time: 03/02/22 07:27 Surgeon: Vince Holland MD Pre Op Diagnosis: diarrhea Patient Data Age: 27 Gender: M Height: 1.7 m Weight: 68 kg Allergies Allergy/AdvReac Type Severity Reaction Status Date / Time Antihistamines - Alkylamine AdvReac Intermediate Difficulty Verified 01/21/22 13:44 Breathing Home Medications Medication Instructions Recorded Confirmed Type cyclobenzaprine 10 mg tablet 10 mg PO BID PRN Muscle Spasm 02/17/21 02/15/22 History Results Review: All pre-operative results and documents have been reviewed as part of the pre-operative evaluation. [facility] Past Medical History Medical History (Updated 01/21/22 @ 14:16 by Vince Holland MD) Abnormal CT scan, colon ADHD Bipolar disorder Depression Diarrhea Rectal bleeding Smoker Tobacco abuse Surgical History Surgical History (Reviewed 01/21/22 @ 13:42 by Ofelia Ball [facility]) H/O inguinal hernia repair 11/20/19 RIH repair with mesh, davinci assisted H/O laparoscopy 09/19/20 Incisional hernia repair 2. Laparoscopic adhesiolysis S/P foot surgery, left Family History Family History Sibling Asthma ADHD Kidney stones Depression Unknown Heart disease Depression Social History Social History Smoking packs per day: 1.5 Smoking cigarettes per day: 30.0 Years smoked: 17 Smoking pack-years: 25.50 Smoking status: Former smoker Tobacco type: cigarettes Second hand tobacco smoke exposure: Yes Alcohol intake: current Drinks per week: 6 Alcohol use details: hard liquor Substance use: current Substance use type: marijuana Other substance usage details: smokes daily Last use: 08/05/20 Living arrangements: with family Additional living arrangements comments: Lives w/ significant other and her child Occupation/Education: occupation 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 Gender identity (if verbalized by the patient): Male Sexual Orientation (if Verbalized by the Patient): Straight or Heterosexual Spiritual care concerns: No Anes - Eval Final PreProcedure Day of Procedure 03/02/22 07:27 Patient weight: normal Heart: regular rate and rhythm Lungs: clear to auscultation and normal air movement Airway: Mallampati scale class II Neurological: alert and oriented Last oral intake: >/= 8 hours ASA classification: III Emergent: no Anesthetic plan: proceed Anesthesia type and monitoring: general GIVS and standard monitoring Results Review: All pre-operative results and documents have been reviewed as part of the pre-operative evaluation. Informed Consent: The patient's anesthetic plan and its attendant risks and benefits were discussed with the patient/family/POA. Questions were solicited and answers provided to the satisfaction of the patient/family/POA.
--- NOTE | 2022-03-08 15:01 | PC.NURSE ---
Spoke with patient regarding new procedure date and times. Patient has been updated and agrees with dates and times. Patient denies any changes to health history, allergies, or medications. Patient denies any questions at this time.
[2022-03-23 09:05] VITALS: BP 135/82; PULSE 68; RESP 18; TEMP 36.7; O2SAT 95; BMI 23.6
[2022-03-23] MEDS: LACTATED RINGERS 1,000 ML 150 ML IV CONT (09:24)
--- NOTE | 2022-03-23 09:35 | WPDANESEPPF ---
Anes - Initial Pre Proc Eval Procedure: Operation Date: 03/23/22 10:30 Proposed Procedures p Flexible Sigmoidoscopy - Vince Holland MD Date/Time: 03/23/22 09:35 Surgeon: Vince Holland MD Pre Op Diagnosis: diarrhea Patient Data Age: 27 Gender: M Height: 1.7 m Weight: 68.6 kg Last Vital Signs Temp 36.7 C 03/23/22 09:05 Pulse 68 03/23/22 09:05 Resp 18 03/23/22 09:05 BP 135/82 03/23/22 09:05 Pulse Ox 95 03/23/22 09:05 O2 Del Method Room Air 03/23/22 09:05 Allergies Allergy/AdvReac Type Severity Reaction Status Date / Time Antihistamines - Alkylamine AdvReac Intermediate Difficulty Verified 03/23/22 09:14 Breathing Home Medications Medication Instructions Recorded Confirmed Type cyclobenzaprine 10 mg tablet 10 mg PO BID PRN Muscle Spasm 02/17/21 03/23/22 History Patient hx anesthesia problems: none Family hx anesthesia problems: none Results Review: All pre-operative results and documents have been reviewed as part of the pre-operative evaluation. [facility] Past Medical History Medical History Abnormal CT scan, colon ADHD Bipolar disorder Depression Diarrhea Rectal bleeding Smoker Tobacco abuse Surgical History Surgical History H/O inguinal hernia repair 11/20/19 RIH repair with mesh, davinci assisted H/O laparoscopy 09/19/20 Incisional hernia repair 2. Laparoscopic adhesiolysis S/P foot surgery, left Family History Family History Sibling Asthma ADHD Kidney stones Depression Unknown Heart disease Depression Social History Social History Smoking packs per day: 1.5 Smoking cigarettes per day: 30.0 Years smoked: 17 Smoking pack-years: 25.50 Smoking status: Former smoker Tobacco type: cigarettes Second hand tobacco smoke exposure: Yes Alcohol intake: current Drinks per week: 6 Alcohol use details: hard liquor Substance use: current Substance use type: marijuana Other substance usage details: smokes daily Last use: 08/05/20 Living arrangements: with family Additional living arrangements comments: Lives w/ significant other and her child Occupation/Education: occupation Additional occupation/education 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: [employer]: Dionisio Shady [employer] Gender identity (if verbalized by the patient): Male Sexual Orientation (if Verbalized by the Patient): Straight or Heterosexual Spiritual care concerns: No Anes - Eval Final PreProcedure Day of Procedure 03/23/22 09:35 Patient weight: normal Heart: regular rate and rhythm Lungs: clear to auscultation Airway: Mallampati scale class II and special considerations poor dentition Neurological: alert and oriented Last oral intake: >/= 8 hours ASA classification: II Emergent: no Anesthetic plan: proceed Anesthesia type and monitoring: general GIVS and standard monitoring Results Review: All pre-operative results and documents have been reviewed as part of the pre-operative evaluation. Informed Consent: The patient's anesthetic plan and its attendant risks and benefits were discussed with the patient/family/POA. Questions were solicited and answers provided to the satisfaction of the patient/family/POA.
--- NOTE | 2022-03-23 10:27 | PM.HPGS ---
History of Present Illness History of Present Illness Consent: Risks, benefits, and alternatives have been discussed and questions answered. Patient agrees to proceed with procedure. Chief complaint: diarrhea Narrative: Matias Calvin is a 27 year old male here for sigmoidoscopy, he had rectal bleeding in the past for which had colonoscopy was normal other than small hemorrhoids. Then developed more abdominal pain, surgeon ordered CT scan (he has previous hernia repair and wanted to rule out new hernia), showed possible colitis in transverse and intermittent diarrhea.? Review of Systems Constitutional: Constitutional: Denies headache(s) and Denies weakness Eyes: Eyes: Denies blurry vision ENT: Reports Normal hearing present, Denies headache(s) and Denies neck pain Cardiovascular: Cardiovascular: Denies chest pain and Denies dyspnea Respiratory: Respiratory: Denies dyspnea Gastrointestinal: Gastrointestinal: Reports no additional gastrointestinal complaints Genitourinary: Genitourinary: Denies dysuria Musculoskeletal: Musculoskeletal: Denies neck pain Integumentary/Breasts: Skin/Breast: Denies dry skin Neurologic: Reports Normal hearing present, Denies headache(s) and Denies weakness Psychiatric: Psychiatric: Denies anxiety Endocrine: Endocrine: Denies change in body appearance Hematologic/Lymphatic: Hematologic/Lymphatic: Denies easy bleeding Allergic/Immunologic: Allergic/Immunologic: Denies urticaria PMFSH Past Medical History Medical History Abnormal CT scan, colon ADHD Bipolar disorder Depression Diarrhea Rectal bleeding Smoker Tobacco abuse Surgical History Surgical History H/O inguinal hernia repair 11/20/19 RIH repair with mesh, davinci assisted H/O laparoscopy 09/19/20 Incisional hernia repair 2. Laparoscopic adhesiolysis S/P foot surgery, left Family History Family History Sibling Asthma ADHD Kidney stones Depression Unknown Heart disease Depression Social History Social History Smoking packs per day: 1.5 Smoking cigarettes per day: 30.0 Years smoked: 17 Smoking pack-years: 25.50 Smoking status: Former smoker Tobacco type: cigarettes Second hand tobacco smoke exposure: Yes Alcohol intake: current Drinks per week: 6 Alcohol use details: hard liquor Substance use: current Substance use type: marijuana Other substance usage details: smokes daily Last use: 08/05/20 Living arrangements: with family Additional living arrangements comments: Lives w/ significant other and her child Occupation/Education: occupation 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 Gender identity (if verbalized by the patient): Male Sexual Orientation (if Verbalized by the Patient): Straight or Heterosexual Spiritual care concerns: No Meds Home Medications and Allergies Home Medications Medication Instructions Recorded Confirmed Type cyclobenzaprine 10 mg tablet 10 mg PO BID PRN Muscle Spasm 02/17/21 03/23/22 History Allergies Allergy/AdvReac Type Severity Reaction Status Date / Time Antihistamines - Alkylamine AdvReac Intermediate Difficulty Verified 03/23/22 09:14 Breathing Vital Signs Vital Signs - 24 hr 03/23/22 09:05 Temperature 98.1 F Pulse Rate 68 Respiratory Rate 18 Blood Pressure 135/82 Pulse Oximetry 95 Oxygen Delivery Room Air Exam Const: General: comfortable and no acute distress HENMT: Face/Nose/Sinus: Normal nares present Eyes: General: appearance normal, both eyes and all related structures Neck: Neck: no JVD Resp: Auscultation: clear to auscultation bilaterally Cardio: Rate: regular rate Rhythm: regular rhythm GI: Inspection: non-distended GI Palp: Y
[2022-03-23 10:39] VITALS: BP 96/56; PULSE 71; RESP 24; O2SAT 98
[2022-03-23 10:49] VITALS: BP 121/81; PULSE 74; RESP 18; O2SAT 100
[2022-03-23 10:59] VITALS: BP 119/83; PULSE 58; RESP 16; O2SAT 92
== END 2022-03-23 11:08 | disposition home or self-care (01) ==
PROVIDERS: PCP Physician Assistant; Visit Provider Internal Medicine Gastroenterology
PROC: 0DJD8ZZ Inspection of Lower Intestinal Tract, Via Natural or Artificial Opening Endoscopic (ICD-10-PCS; CPT 45330; principal; 2022-03-23 10:30)
DX: R19.7 Diarrhea, unspecified (principal); K64.8 Other hemorrhoids; Z87.891 Personal history of nicotine dependence; F12.90 Cannabis use, unspecified, uncomplicated
CPT/HCPCS: 45331; 88305; J2704; J7120

== ENCOUNTER 2022-11-06 20:46 | Emergency (ER) | payer OTHER, SELFPAY ==
--- NOTE | ~2022-11-06 | XR_ITS ---
EXAM: XR foot LT min 3V DATE: 11/06/2022 21:02 HISTORY: FALL. LATERAL LEFT FOOT PAIN. . COMPARISON: None available. FINDINGS: Normal mineralization. No fracture or dislocation. No lytic or blastic lesion. Joint space s are maintained. No erosion or periosteal change. Soft tissues within normal limits. IMPRESSION: No acute osseous finding in the left foot. Reviewed, dictated and finalized at location K.
[2022-11-06 20:56] VITALS: BP 145/92; PULSE 100; RESP 18; TEMP 37.2; O2SAT 97
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
[2022-11-06 21:16] VITALS: BP 136/78; PULSE 81; RESP 18; TEMP 36.6; O2SAT 99
== END 2022-11-06 21:20 | disposition home or self-care (01) ==
PROVIDERS: Emergency Provider Emergency Medicine; PCP Physician Assistant
DX: S96.912A Strain of unspecified muscle and tendon at ankle and foot level, left foot, initial encounter (principal); Z87.891 Personal history of nicotine dependence; W05.1XXA Fall from non-moving nonmotorized scooter, initial encounter
CPT/HCPCS: 73630; 99283

== ENCOUNTER 2022-12-23 07:45 | Emergency (ER) | payer OTHER, SELFPAY ==
--- NOTE | 2022-12-23 07:50 | ED.URI ---
HPI - URI/Sore Throat General Chief Complaint: Upper Respiratory Infection Stated Complaint: congestion Time Seen by Provider: 12/23/22 07:50 Source: patient Mode of arrival: ambulatory Limitations: no limitations History of Present Illness HPI Narrative: this is 27-year-old male who presents with cough congestion with some smoking history with no shortness of breath no fever chills no nausea vomiting does have some nasal congestion with drainage no chest pain. MD elicited complaint: cough and nasal congestion Onset (ago): day(s) Consistency: constant Severity: mild Description of mucous: clear Able to tolerate fluids by mouth: Yes Related Data Home Medications Medication Instructions Recorded Confirmed cyclobenzaprine 10 mg tablet 10 mg PO BID PRN Muscle Spasm 02/17/21 12/23/22 Allergies Allergy/AdvReac Type Severity Reaction Status Date / Time Antihistamines - Alkylamine AdvReac Intermediate Difficulty Verified 12/23/22 07:50 Breathing Review of Systems Review of Systems: All systems reviewed & are unremarkable except as noted in HPI and below PMFSH Past Medical History Medical History Abnormal CT scan, colon ADHD Bipolar disorder Depression Diarrhea Rectal bleeding Smoker Tobacco abuse Surgical History Surgical History H/O inguinal hernia repair 11/20/19 RIH repair with mesh, davinci assisted H/O laparoscopy 09/19/20 Incisional hernia repair 2. Laparoscopic adhesiolysis S/P foot surgery, left Family History Family History Sibling Asthma ADHD Kidney stones Depression Unknown Heart disease Depression Social History Social History Smoking packs per day: 1.5 Smoking cigarettes per day: 30.0 Years smoked: 17 Smoking pack-years: 25.50 Smoking status: Former smoker Tobacco type: cigarettes Second hand tobacco smoke exposure: Yes Alcohol intake: current Drinks per week: 6 Alcohol use details: hard liquor Substance use: current Substance use type: marijuana Other substance usage details: smokes daily Last use: 08/05/20 Living arrangements: with family Additional living arrangements comments: Lives w/ significant other and her child Occupation/Education: occupation 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 Gender identity (if verbalized by the patient): Male Sexual Orientation (if Verbalized by the Patient): Straight or Heterosexual Spiritual care concerns: No Exam Const: General: healthy appearing Nutritional Appearance: well nourished Orientation/consciousness: patient oriented x3 HENMT: Other: Nasal congestion with clear nasal discharge Chest: Chest palpation & inspection: normal inspection of the chest Resp: Effort & Inspection: normal respiratory effort Auscultation: clear to auscultation bilaterally Cardio: Rate: regular rate Rhythm: regular rhythm GI: GI Palp: Yes Soft to palpation Course Course Emergency Course: patient with some cough nonproductive with nasal congestion and will send antibiotics to his local pharmacy, advised patient to discontinue tobacco use and to take medicine as prescribed. Critical Care Time Critical Care Time Critical Care Time: No Discharge Plan Discharge Clinical Impression: Bronchitis Patient Disposition: Home, Self-Care Condition: Stable Instructions: Antibiotic Form, Acute Bronchitis (ED) Additional Instructions: Take medicine as prescribed and follow-up primary care physician if symptoms persist or worsen. Prescriptions: New azithromycin [Zithromax Z-Josef] 250 mg tablet See Rx Instructions .ROUTE .COMPLEX Qty: 6 0RF Rx Instructions: For 250 mg dose pack: take 500 mg today (day 1), then 250 mg fo
[2022-12-23 07:51] VITALS: BP 133/94; PULSE 102; RESP 20; TEMP 36.9; O2SAT 99
[2022-12-23 08:02] VITALS: O2SAT 99
== END 2022-12-23 08:05 | disposition home or self-care (01) ==
LOC: CHSED 08:06
PROVIDERS: Emergency Provider Emergency Medicine; PCP Physician Assistant
DX: J40 Bronchitis, not specified as acute or chronic (principal); Z79.899 Other long term (current) drug therapy; Z87.891 Personal history of nicotine dependence
CPT/HCPCS: 99283

== ENCOUNTER 2023-02-09 18:51 | Emergency (ER) | payer OTHER, SELFPAY ==
[2023-02-09 18:51] VITALS: BP 137/95; PULSE 82; RESP 18; TEMP 36.8; O2SAT 100
--- NOTE | 2023-02-09 19:00 | ED.WOUNDLAC ---
HPI - Wound/Laceration General Chief Complaint: Wound/Laceration Stated Complaint: finger laceration Time Seen by Provider: 02/09/23 18:58 Source: patient Mode of arrival: ambulatory Limitations: no limitations History of Present Illness HPI narrative: 28-year-old male with a history of smoking,ADHD, bipolar presented to the ER with a superficial laceration of the right index finger. He cut himself while trying to open a tin can. Profuse bleeding which has now stopped Onset (ago): minute(s) ( 30 minutes ago) Extremity Location: Right: hand Place: home Patient tetanus UTD: No Context: accidental Associated symptoms: none Related Data Home Medications Medication Instructions Recorded Confirmed cyclobenzaprine 10 mg tablet 10 mg PO BID PRN Muscle Spasm 02/17/21 02/09/23 Allergies Allergy/AdvReac Type Severity Reaction Status Date / Time Antihistamines - Alkylamine AdvReac Intermediate Difficulty Verified 02/09/23 18:57 Breathing Review of Systems Review of Systems: All systems reviewed & are unremarkable except as noted in HPI and below Constitutional: Constitutional: Reports as per HPI and Reports no additional constitutional complaints Eyes: Eyes: Reports as per HPI and Reports no additional eye complaints ENT: Reports system reviewed and no additional complaints, except as documented and Reports as per HPI Cardiovascular: Cardiovascular: Reports as per HPI and Reports no additional cardiovascular complaints Respiratory: Respiratory: Reports as per HPI and Reports no additional respiratory complaints Gastrointestinal: Gastrointestinal: Reports as per HPI and Reports no additional gastrointestinal complaints Comments: chronic abdominal pain for past 5 years for which he is being followed by his primary care physician Genitourinary: Genitourinary: Reports no additional male genitourinary complaints Musculoskeletal: Musculoskeletal: Reports no additional musculoskeletal complaints and Reports as per HPI Integumentary/Breasts: Comments: right index finger superficial laceration measuring 2 cm. Neurologic: Reports system reviewed and no additional complaints, except as documented and Reports as per HPI Psychiatric: Psychiatric: Reports no additional psychiatric complaints and Reports as per HPI Endocrine: Endocrine: Reports no additional endocrine complaints and Reports as per HPI Hematologic/Lymphatic: Hematologic/Lymphatic: Reports no additional hematologic/lymphatic complaints and Reports as per HPI Allergic/Immunologic: Allergic/Immunologic: Reports no additional allergic/immunologic complaints and Reports as per HPI [facility] Past Medical History Medical History Abnormal CT scan, colon ADHD Bipolar disorder Depression Diarrhea Rectal bleeding Smoker Tobacco abuse Surgical History Surgical History H/O inguinal hernia repair 11/20/19 [place] repair with mesh, davinci assisted H/O laparoscopy 09/19/20 Incisional hernia repair 2. Laparoscopic adhesiolysis S/P foot surgery, left Family History Family History Sibling Asthma ADHD Kidney stones Depression Unknown Heart disease Depression Social History Social History Smoking packs per day: 1.5 Smoking cigarettes per day: 30.0 Years smoked: 17 Smoking pack-years: 25.50 Smoking status: Former smoker Tobacco type: cigarettes Second hand tobacco smoke exposure: Yes Alcohol intake: current Drinks per week: 6 Alcohol use details: hard liquor Substance use: current Substance use type: marijuana Other substance usage details: smokes daily Last use: 08/05/20 Living arrangements: with family Additional living arrangements comments: Lives w/ significant other and her child Occu
[2023-02-09] MEDS: TETANUS,DIPHTHERIA,AC PERTUSSIS ADULT 0.5 ML (ADACEL) IM (19:22)
== END 2023-02-09 19:40 | disposition home or self-care (01) ==
PROVIDERS: Emergency Provider Internal Medicine Critical Care Medicine; PCP Physician Assistant
DX: S61.210A Laceration without foreign body of right index finger without damage to nail, initial encounter (principal); Z79.899 Other long term (current) drug therapy; Z87.891 Personal history of nicotine dependence; Z23 Encounter for immunization; W26.8XXA Contact with other sharp object(s), not elsewhere classified, initial encounter
CPT/HCPCS: 12001; 90471; 90715; 99283

== ENCOUNTER 2023-02-24 18:26 | Emergency (ER) | payer OTHER, SELFPAY ==
[2023-02-24 18:26] VITALS: BP 123/98; PULSE 77; RESP 12; TEMP 36.4; O2SAT 98
--- NOTE | 2023-02-24 18:58 | PC.NURSE ---
pt report to andreas mahoney.
[2023-02-24 19:23] LABS: SARS-CoV-2 RNA PCR Negative (Negative)
[2023-02-24 19:32] LABS: Influenza A QL RT-PCR Negative (Negative); Influenza B QL RT-PCR Positive (Negative); RSV RNA, RT-PCR Negative (Negative); Strep Group A RT-PCR NOT DETECTED (Negative)
--- NOTE | 2023-02-24 19:41 | ED.URI ---
HPI - URI/Sore Throat General Chief Complaint: Upper Respiratory Infection Stated Complaint: cough; respiratory Time Seen by Provider: 02/24/23 18:38 Source: patient Mode of arrival: ambulatory Limitations: no limitations History of Present Illness HPI Narrative: Patient presents with cough congestion is a smoker no shortness of breath has been exposed to flu with no nausea vomiting no chest pain. MD elicited complaint: cough, rhinorrhea and nasal congestion Related Data Home Medications Medication Instructions Recorded Confirmed cyclobenzaprine 10 mg tablet 10 mg PO BID PRN Muscle Spasm 02/17/21 02/09/23 Allergies Allergy/AdvReac Type Severity Reaction Status Date / Time Antihistamines - Alkylamine AdvReac Intermediate Difficulty Verified 02/09/23 18:57 Breathing Review of Systems Review of Systems: All systems reviewed & are unremarkable except as noted in HPI and below PMFSH Past Medical History Medical History Abnormal CT scan, colon ADHD Bipolar disorder Depression Diarrhea Rectal bleeding Smoker Tobacco abuse Surgical History Surgical History H/O inguinal hernia repair 11/20/19 [place] repair with mesh, davinci assisted H/O laparoscopy 09/19/20 Incisional hernia repair 2. Laparoscopic adhesiolysis S/P foot surgery, left Family History Family History Sibling Asthma ADHD Kidney stones Depression Unknown Heart disease Depression Social History Social History Smoking packs per day: 1.5 Smoking cigarettes per day: 30.0 Years smoked: 17 Smoking pack-years: 25.50 Smoking status: Former smoker Tobacco type: cigarettes Second hand tobacco smoke exposure: Yes Alcohol intake: current Drinks per week: 6 Alcohol use details: hard liquor Substance use: current Substance use type: marijuana Other substance usage details: smokes daily Last use: 08/05/20 Living arrangements: with family Additional living arrangements comments: Lives w/ significant other and her child Occupation/Education: occupation 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 Gender identity (if verbalized by the patient): Male Sexual Orientation (if Verbalized by the Patient): Straight or Heterosexual Spiritual care concerns: No Exam Const: General: healthy appearing Nutritional Appearance: well nourished Orientation/consciousness: patient oriented x3 Limitations: no limitations HENMT: Head: normal to inspection Eyes: Conjunctivae: conjunctivae normal Neck: Neck: normal visual inspection and no lymphadenopathy Chest: Chest palpation & inspection: normal inspection of the chest Resp: Effort & Inspection: normal respiratory effort Auscultation: clear to auscultation bilaterally Cardio: Rate: regular rate Rhythm: regular rhythm Course Course Emergency Course: Patient positive for flu B and will be send Tamiflu to his local pharmacy Vital Signs Vital signs: Vital Signs Temperature 36.4 C L 02/24/23 18:26 Pulse Rate 77 02/24/23 18:26 Respiratory Rate 12 02/24/23 18:26 Blood Pressure 123/98 H 02/24/23 18:26 Pulse Oximetry 98 02/24/23 18:26 Oxygen Delivery Room Air 02/24/23 18:26 Temperature 36.4 C L 02/24/23 18:26 Pulse Rate 77 02/24/23 18:26 Respiratory Rate 12 02/24/23 18:26 Blood Pressure 123/98 H 02/24/23 18:26 Pulse Oximetry 98 02/24/23 18:26 Oxygen Delivery Room Air 02/24/23 18:57 MDM - URI/Sore Throat Lab Data Labs: Lab Results 02/24/23 Range/Units 18:43 Influenza A (RT-PCR) Negative (Negative) Influenza B (RT-PCR) Positive A (Negative) RSV (RT-PCR) Negative (Negative) SARS-CoV-2 RNA (RT-PCR) Negative (Negative) Group A Strep (PCR
[2023-02-24 19:53] VITALS: BP 136/85; PULSE 78; RESP 18; TEMP 37.1; O2SAT 98
== END 2023-02-24 19:54 | disposition home or self-care (01) ==
PROVIDERS: Emergency Provider Emergency Medicine; PCP Physician Assistant
DX: J11.1 Influenza due to unidentified influenza virus with other respiratory manifestations (principal); J40 Bronchitis, not specified as acute or chronic; Z87.891 Personal history of nicotine dependence; Z20.822 Contact with and (suspected) exposure to COVID-19
CPT/HCPCS: 87637; 87651; 99283

== ENCOUNTER 2023-06-18 18:29 | Emergency (ER) | payer OTHER, SELFPAY ==
[2023-06-18 18:37] VITALS: BP 127/97; PULSE 71; RESP 18; TEMP 36.8; O2SAT 98
[2023-06-18 18:48] VITALS: O2SAT 98
[2023-06-18 19:31] LABS: Strep Group A RT-PCR NOT DETECTED (Negative)
[2023-06-18 19:33] LABS: SARS-CoV-2 RNA PCR Negative (Negative)
[2023-06-18 19:34] LABS: Influenza A QL RT-PCR Negative (Negative); Influenza B QL RT-PCR Negative (Negative); RSV RNA, RT-PCR Negative (Negative)
--- NOTE | 2023-06-18 19:38 | ED.URI ---
HPI - URI/Sore Throat General Chief Complaint: Upper Respiratory Infection Stated Complaint: SOB/Bronchitis Time Seen by Provider: 06/18/23 18:31 Source: patient Mode of arrival: ambulatory Limitations: no limitations History of Present Illness HPI Narrative: patient is a 28-year-old male with significant past medical history presents today with URI symptoms. Patient has cough, congestion, rhinorrhea for the last 5 days. He states he thinks this started off with sinusitis and that he had bronchitis. He is coughing up greenish brown sputum. He denies any fevers or sick contacts. He has not taken a COVID test. MD elicited complaint: cough, sore throat, rhinorrhea and nasal congestion Pertinent past history: sinusitis Onset (ago): day(s) Consistency: constant Severity: mild Description of mucous: yellow and green Able to tolerate fluids by mouth: Yes Exacerbating factors: nothing Relieving factors: nothing Context: sick contacts Associated symptoms: rhinorrhea, nasal congestion and sore throat Treatments prior to arrival: none Related Data Home Medications Medication Instructions Recorded Confirmed cyclobenzaprine 10 mg tablet 10 mg PO BID PRN Muscle Spasm 02/17/21 06/18/23 Allergies Allergy/AdvReac Type Severity Reaction Status Date / Time Antihistamines - Alkylamine AdvReac Intermediate Difficulty Verified 02/09/23 18:57 Breathing Review of Systems Review of Systems: ROS unobtainable: Yes unobtainable due to endotracheal tube Constitutional: Constitutional: Reports as per HPI Eyes: Eyes: Reports no additional eye complaints ENT: Reports system reviewed and no additional complaints, except as documented Cardiovascular: Cardiovascular: Reports no additional cardiovascular complaints Respiratory: Respiratory: Reports no additional respiratory complaints Gastrointestinal: Gastrointestinal: Reports no additional gastrointestinal complaints Genitourinary: Genitourinary: Reports no additional male genitourinary complaints Musculoskeletal: Musculoskeletal: Reports no additional musculoskeletal complaints Integumentary/Breasts: Skin/Breast: Reports system reviewed and no additional complaints, except as docu Neurologic: Reports system reviewed and no additional complaints, except as documented Psychiatric: Psychiatric: Reports no additional psychiatric complaints Endocrine: Endocrine: Reports no additional endocrine complaints Hematologic/Lymphatic: Hematologic/Lymphatic: Reports no additional hematologic/lymphatic complaints Allergic/Immunologic: Allergic/Immunologic: Reports no additional allergic/immunologic complaints PMFSH Past Medical History Medical History Abnormal CT scan, colon ADHD Bipolar disorder Depression Diarrhea Rectal bleeding Smoker Tobacco abuse Surgical History Surgical History H/O inguinal hernia repair 11/20/19 [place] repair with mesh, davinci assisted H/O laparoscopy 09/19/20 Incisional hernia repair 2. Laparoscopic adhesiolysis S/P foot surgery, left Family History Family History Sibling Asthma ADHD Kidney stones Depression Unknown Heart disease Depression Social History Social History Smoking packs per day: 1.5 Smoking cigarettes per day: 30.0 Years smoked: 17 Smoking pack-years: 25.50 Smoking status: Former smoker Tobacco type: cigarettes Second hand tobacco smoke exposure: Yes Alcohol intake: current Drinks per week: 6 Alcohol use details: hard liquor Substance use: current Substance use type: marijuana Other substance usage details: smokes daily Last use: 08/05/20 Living arrangements: with family Additional living arrangements comments: Lives w/ significant other and her child Occupation/Education: o
[2023-06-18] MEDS: DOXYCYCLINE HYCLATE 100 MG TABLET PO (19:46)
== END 2023-06-18 19:52 | disposition home or self-care (01) ==
PROVIDERS: Emergency Provider Family Medicine
DX: J06.9 Acute upper respiratory infection, unspecified (principal); J32.9 Chronic sinusitis, unspecified; Z20.822 Contact with and (suspected) exposure to COVID-19; Z87.891 Personal history of nicotine dependence; F12.90 Cannabis use, unspecified, uncomplicated
CPT/HCPCS: 87637; 87651; 99283; A9270

== ENCOUNTER 2023-09-04 11:35 | Emergency (ER) | payer OTHER, SELFPAY ==
[2023-09-04 11:35] VITALS: BP 154/96; PULSE 75; RESP 16; TEMP 36.7; O2SAT 98
--- NOTE | 2023-09-04 11:59 | ED.SKABFB ---
HPI - Skin/Abscess/Foreign Bdy General Chief complaint: Urogenital-Male Stated complaint: abscess to groin Source: patient Mode of arrival: ambulatory Limitations: no limitations History of Present Illness HPI narrative: Patient is a 28-year-old male with a penile concern. There is a skin spot that he has a concerned and wants a doctor to look at for possible infection. No dysuria or STD concerns. Same partner for many years. complaint: other ( Penile shaft lesion) Onset (ago): week(s) (1) Location: genitals ( penile shaft) Severity: mild Severity scale (1-10): 1 Quality: dull Pain Consistency: intermittent Relieving factors: none Exacerbating factors: none Context: none Associated symptoms: denies other symptoms Treatments prior to arrival: none Related Data Home Medications Medication Instructions Recorded Confirmed cyclobenzaprine 10 mg tablet 10 mg PO BID PRN Muscle Spasm 02/17/21 09/04/23 Allergies Allergy/AdvReac Type Severity Reaction Status Date / Time Antihistamines - Alkylamine AdvReac Intermediate Difficulty Verified 09/04/23 11:45 Breathing Review of Systems Review of Systems: All systems reviewed & are unremarkable except as noted in HPI and below Constitutional: Constitutional: Reports no additional constitutional complaints Eyes: Eyes: Reports no additional eye complaints ENT: Reports system reviewed and no additional complaints, except as documented Cardiovascular: Cardiovascular: Reports no additional cardiovascular complaints Respiratory: Respiratory: Reports no additional respiratory complaints Gastrointestinal: Gastrointestinal: Reports no additional gastrointestinal complaints Genitourinary: Genitourinary: Reports no additional male genitourinary complaints Musculoskeletal: Musculoskeletal: Reports no additional musculoskeletal complaints Integumentary/Breasts: Skin/Breast: Reports system reviewed and no additional complaints, except as docu Neurologic: Reports system reviewed and no additional complaints, except as documented Psychiatric: Psychiatric: Reports no additional psychiatric complaints Endocrine: Endocrine: Reports no additional endocrine complaints Hematologic/Lymphatic: Hematologic/Lymphatic: Reports no additional hematologic/lymphatic complaints Allergic/Immunologic: Allergic/Immunologic: Reports no additional allergic/immunologic complaints PMFSH Past Medical History Medical History Abnormal CT scan, colon ADHD Bipolar disorder Depression Diarrhea Rectal bleeding Smoker Tobacco abuse Surgical History Surgical History H/O inguinal hernia repair 11/20/19 [facility] repair with mesh, davinci assisted H/O laparoscopy 09/19/20 Incisional hernia repair 2. Laparoscopic adhesiolysis S/P foot surgery, left Family History Family History Sibling Asthma ADHD Kidney stones Depression Unknown Heart disease Depression Social History Social History Smoking packs per day: 1.5 Smoking cigarettes per day: 30.0 Years smoked: 17 Smoking pack-years: 25.50 Smoking status: Former smoker Tobacco type: cigarettes Second hand tobacco smoke exposure: Yes Alcohol intake: current Drinks per week: 6 Alcohol use details: hard liquor Substance use: current Substance use type: marijuana Other substance usage details: smokes daily Last use: 08/05/20 Living arrangements: with family Additional living arrangements comments: Lives w/ significant other and her child Occupation/Education: occupation 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 Gender identity (if verbalized by the patient): Male Sexual Orientation (if Verbalized by the Patient): Straight or Heterosexual Spiritual care c
== END 2023-09-04 12:15 | disposition home or self-care (01) ==
PROVIDERS: Emergency Provider Emergency Medicine
DX: L98.9 Disorder of the skin and subcutaneous tissue, unspecified (principal); Z87.891 Personal history of nicotine dependence
CPT/HCPCS: 99281

== ENCOUNTER 2024-02-04 14:31 | Emergency (ER) | payer OTHER, SELFPAY ==
--- NOTE | ~2024-02-04 | XR_ITS ---
XR chest 2V Ordering provider: Chauncey Amador MD History: 29 years Male with . cough/bronchitis x1 week . Comparison: April 28, 2021 FINDINGS: MEDIASTINUM: The cardiac silhouette is not enlarged. LUNGS: No effusions or pneumothorax. Minimal opacification in the left perihilar and left lower lobe area. OTHER: No free air under the diaphragm. IMPRESSION: Left perihilar and left lower lobe pneumonia. Reviewed, dictated and finalized at location A. [facility] OFFICER
[2024-02-04 14:31] VITALS: BP 146/101; PULSE 70; RESP 16; TEMP 36.9; O2SAT 99
--- NOTE | 2024-02-04 14:36 | ED_ITS ---
HPI - URI/Sore Throat General Chief Complaint: Upper Respiratory Infection Stated Complaint: cough Source: patient Mode of arrival: ambulatory Limitations: no limitations History of Present Illness HPI Narrative: Patient is a 29-year-old male with a 4 day history of cough and congestion. He has sinus pain and pressure. He also has chest discomfort with breathing. MD elicited complaint: cough, rhinorrhea, nasal congestion and sinus pain Pertinent past history: other ( none) Onset (ago): day(s) (4) Consistency: constant Severity: moderate Pain scale (0-10): 2 Description of mucous: clear, watery and yellow Able to tolerate fluids by mouth: Yes Exacerbating factors: exertion and deep breaths Relieving factors: nothing Context: other ( patient having chest congestion and sinus pain and pressure for 4 days) Associated symptoms: cough Treatments prior to arrival: none Related Data Home Medications ?Medication ?Instructions ?Recorded ?Confirmed ?Last Taken ?Type cyclobenzaprine 10 mg tablet 10 mg PO BID PRN Muscle Spasm 02/17/21 09/04/23 Unknown History Allergies Allergy/AdvReac Type Severity Reaction Status Date / Time Antihistamines - Alkylamine AdvReac Intermediate Difficulty Verified 09/04/23 11:45 Breathing Review of Systems Review of Systems: All systems reviewed & are unremarkable except as noted in HPI and below Constitutional: Constitutional: Reports no additional constitutional complaints Eyes: Eyes: Reports no additional eye complaints ENT: Reports system reviewed and no additional complaints, except as documented Cardiovascular: Cardiovascular: Reports no additional cardiovascular complaints Respiratory: Respiratory: Reports no additional respiratory complaints Gastrointestinal: Gastrointestinal: Reports no additional gastrointestinal complaints Genitourinary: Genitourinary: Reports no additional male genitourinary complaints Musculoskeletal: Musculoskeletal: Reports no additional musculoskeletal complaints Integumentary/Breasts: Skin/Breast: Reports system reviewed and no additional complaints, except as docu Neurologic: Reports system reviewed and no additional complaints, except as documented Psychiatric: Psychiatric: Reports no additional psychiatric complaints Endocrine: Endocrine: Reports no additional endocrine complaints Hematologic/Lymphatic: Hematologic/Lymphatic: Reports no additional hematologic/lymphatic complaints Allergic/Immunologic: Allergic/Immunologic: Reports no additional allergic/immunologic complaints PMFSH Past Medical History Medical History Abnormal CT scan, colon Diarrhea Bipolar disorder Rectal bleeding Smoker ADHD Tobacco abuse Depression Surgical History Surgical History H/O laparoscopy 09/19/20 Incisional hernia repair 2. Laparoscopic adhesiolysis H/O inguinal hernia repair 11/20/19 [facility] repair with mesh, davinci assisted S/P foot surgery, left Family History Family History Sibling Asthma ADHD Kidney stones Depression Unknown Heart disease Depression Social History Social History Smoking packs per day: 1.5 Smoking cigarettes per day: 30.0 Years smoked: 17 Smoking pack-years: 25.50 Smoking status: Former smoker Tobacco type: cigarettes Second hand tobacco smoke exposure: Yes Alcohol intake: current Drinks per week: 6 Alcohol use details: hard liquor Substance use: current Substance use type: marijuana Other substance usage details: smokes daily Last use: 08/05/20 Living arrangements: with family Additional living arrangements comments: Lives w/ significant other and her child Occupation/Education: occupation 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 Gender identity (if verbalized by the patient): Male Sexual Orientation (if Verbalized by the Patient): Straight or Heterosexual Spiritual care concerns: No Exam Const: General: healthy appearing Nutritional Appearance: well nourished Orientation/consciousness: patient oriented x3 Limitations: no limitations HENMT: Head: normal to inspection Ears: external ears normal Face/Nose/Sinus: Normal external nose present Face and sinus: normal facial exam Eyes: Conjunctivae: conjunctivae normal Pupils: Equal, round and reactive pupils present EOM: EOMs intact bilaterally Neck: Neck: normal visual inspection Chest: Chest palpation & inspection: normal inspection of the chest Resp: Effort & Inspection: normal respiratory effort, not labored, no retractions, not tachypneic and no use of accessory muscles Auscultation: not clear to auscultation bilaterally, no crackles, no rales, no rhonchi, no wheezes, breath sounds present and diminished lung sounds ( left lower lobe) Cardio: Rate: regular rate Rhythm: regular rhythm Heart sounds: no murmurs GI: Inspection: non-distended GI Palp: Yes Soft to palpation and No Tenderness to palpation present (GI) Auscultation: normal bowel sounds : General: Yes bladder normal to palpation Back/Spine/Pelvis: Back: no CVA tenderness Skin: General skin exam: normal color Rashes: no rashes Wounds: no wounds Neuro: General: patient oriented x3 Cranial nerves: Yes Nystagmus not present Speech: normal speech Gait exam (Neuro): Normal gait present Extrem: General: normal to inspection Psych: Mental Status: mental status grossly normal Affect: normal affect Attitude: cooperative MDM - URI/Sore Throat MDM Narrative Medical decision making narrative: patient is a 29-year-old male with cough and congestion. Chest x-ray done. Pneumonia seen. Also COVID testing negative. Lab Data Attestation: I reviewed the patient's lab results. Labs: COVID panel negative Imaging Data Attestation: I personally reviewed and interpreted this imaging study as follows: Radiologist's impression: Chest x-ray shows a left perihilar and left lower lobe pneumonia Discharge Plan Discharge Clinical Impression: Pneumonia Qualifiers: Pneumonia type: due to unspecified organism Laterality: left Lung location: lower lobe of lung Qualified Code(s): J18.9 - Pneumonia, unspecified organism Patient Disposition: Home, Self-Care Condition: Stable Instructions: Antibiotic Form, Bacterial Pneumonia (ED) Patient Language: Lithuanian Prescriptions: New amoxicillin-pot clavulanate 875-125 mg tablet 1 tablet PO BID 10 Days Qty: 20 0RF No Action cyclobenzaprine 10 mg tablet 10 mg PO BID PRN (Reason: Muscle Spasm) Follow-up/Referrals: UNKNOWN,DOCTOR [Primary Care Provider] - Time of Disposition: 15:47
[2024-02-04 15:23] VITALS: BP 129/93; PULSE 67; RESP 16; O2SAT 98
[2024-02-04 15:29] LABS: Influenza A QL RT-PCR Negative (Negative); Influenza B QL RT-PCR Negative (Negative); RSV RNA, RT-PCR Negative (Negative); SARS-CoV-2 RNA PCR Negative (Negative)
--- NOTE | 2024-02-04 17:31 | PC.NURSE ---
pt called concerned about being contagious. explained can be contagious, as long as he has symptoms, practice good hand hygiene, cover mouth when coughing, wear a mask. informed pt all instructions are explained within the discharge packet.
--- OUTSIDE RECORDS SUMMARY | 2024-02-11 23:50 | XMS_ITS | Clinical Summary ---
Author Organization [facility] Address [address] [place] [address]. [place], [place] [id number] [place] [id number] Care Team Providers Care Commodities Broker Name Role Phone Jeet Lance Primary Care Provider [phone] Allergies No known active allergies Medications No known medications Active Problems No known active problems Immunizations Name Administration Dates Next Due Tdap (Boostrix) 11/22/2020 Social History Tobacco Use Types Packs/Day Years Used Date Smoking Tobacco: Every Day Cigarettes 1.5 10 Smokeless Tobacco: Never Tobacco Cessation:Ready to Q uit: No; Counseling Given: Yes Alcohol Use Standard Drinks/Week Comments Yes 0 (1 standard drink = 0.6 oz pur e alcohol) Sex and Gender Information Value Date Recorded Sex Assigned at Not on file Legal Sex Male 10:41 AM CDT Gender Identity Not on file Sexual Orientation Not on file Last Filed Vital Signs Vital Sign Reading Time Taken Comments Blood Pressure 123/80 11/22/2020 1:15 PM CDT Pulse 66 11/22/2020 1:15 PM CDT Temperature 36.4 ??C (97.5 ??F) 11/22/2020 1:15 PM CD T Respiratory Rate 18 11/22/2020 1:15 PM CDT Oxygen Saturation 98% 11/22/2020 1:15 PM CDT Inhaled Oxygen Concentration - - Weight 63 kg (139 lb) 11/22/2020 1:15 PM CDT Height 170.2 cm (5' 7 ) 11/22/2020 1:15 PM CDT Body Mass Index 21.77 11/22/2020 1:15 PM CDT Plan of Treatment Health Maintenance Due Date Last Done Comments Annual Physical 1997 Pneumococcal Vaccine: Pediatrics (0 to 5 Years) and At-Risk Patients (6 to 64 Years) (1 of 2 - PCV) 01/22/2000 Hepatitis C 01/22/2012 COVID-19 Vaccine (2023-25 season) 2023 Influenza Adult (#1) 2023 DTaP, Tdap and Td Vaccines (9 - Td or Tdap) 11/22/2030 11/22/2020, 08/03/2007, 05/05/2005, Additional history exists Hepatitis B Vaccines Completed 1994, 1994, 1994 Meningococcal Vaccine Aged Out 12/03/2011 No christopher eklly eligible based on patient's age to complete this topic HPV Vaccines Aged Out No longer eligi ble based on patient's age to complete this topic RSV Immunizations Under 20 Months Aged Out No longer eligible based on patient's age to complete this topic Insurance Care Teams Commodities Broker Relationship Specialty Start Date End Date Jeet Lance PA [address] [place] [address] PCP - General PHYSICIAN EXECUTIVE SECRETARY [employer] 04/25/20
--- OUTSIDE RECORDS SUMMARY | 2024-02-11 23:50 | XMS_ITS | Encounter Summary ---
Author Organization [facility] Address [address] [place] [address]. [place] [address] [place] [address] Care Team Providers Care Manager Dialysis Name Role Phone Jeet Lance Primary Care Provider [phone] Reason for Visit * Reason Comments Bleeding (Rectal) Rash Encounter Details Date Type Department Care Team (Late st Contact Info) Description 04/25/2020 10:43 AM CDT - 04/25/2020 11:49 AM CDT Emergency [facility] [place] [address] Alison Barrios MD [address] [place] [address] [id number] Bleeding (Rectal); Rash Discharge Disposition: Home or Self Care (Routine Discharge) Social History Tobacco Use Types Packs/Day Years [...] on file Sexual Orientation Not on file COVID-19 Exposure Response Date Recorded In the last month, have you been in contact with someone who was confirmed or suspected to have Coronavirus / COVID-19? No / Unsure 04/25/2020 10:47 AM CDT documented as of this encounter Last Filed Vital Signs Vital Sign Reading Time Taken Comments Blood Pressure 137/97 04/25/2020 10:49 AM CDT Pulse 79 04/25/2020 10:49 AM CDT Temperature 36.3 ??C (97.3 ??F) 04/25/2020 10:45 AM C DT Respiratory Rate 16 04/25/2020 10:49 AM CDT Oxygen Saturation 99% 04/25/2020 10:49 AM CDT Inhaled Oxygen Concentration - - Weight 66.7 kg (147 lb) 04/25/2020 10:49 AM CDT Height 170.2 cm (5' 7 ) 04/25/2020 10:49 AM CDT Body Mass Index 23.02 04/25/2020 10:49 AM CDT documented in this encounter Discharge Instructions * Discharge Instructions* Alison Barrios MD - 04/25/2020 11:35 AM CDT Rectal bleeding, anal fissure, yeast to groin Use medications as prescribed Keep groin clean and dry Stool softener as needed as discussed Follow up closely with Dr. Lance Return to ER for worsening pain, bleeding, dizziness or other concerns. * Attachments The following attachments cannot be sent through Care Everywhere. * Anal Fissure (Bahraini) documented in this encounter Medications at Time of Discharge nystatin powder Apply topically 3 (three) times daily for 10 days. 60 g 04/25/2020 documented as of this encounter ED Notes * Alison Barrios MD - 04/25/2020 11:27 AM CDT Chief Complaint Chief Complaint Patient presents with ??? Bleeding (Rectal) ??? Rash History of Present Illness Patient is a 25-year-old male who presents to the emergency room complaining of rectal bleeding. Patient states that he has had this occur on and off for quite a few number of years. He states that yesterday he was having a bowel movement when he had rectal discomfort and noted bright red blood on the toilet paper. Patient states he has had cramping sensations in his rectum since then. Patient denies any constipation. He states he still feels a soreness in his rectum and feels like there is a cut there . Patient has no history of Crohn's disease or ulcerative colitis. No family history. No abdominal pain. No nausea or vomiting. No trauma to the area otherwise. Patient also complains of a rash to his left groin and between his buttocks that has been going on for quite some time. He stateshe has been using Neosporin without relief. No dysuria or hematuria. No other complaints. Patient is not on blood thinners but does drink alcohol regularly. Medical History ALLERGIES: No Known Allergies MEDICATIONS: Prior to Admission medications Medication Sig Start Date End Date Taking? Authorizing Provider nystatin powder Apply topically 3 (three) times daily for 10 days. 04/25/20 05/05/20 Yes Alison Barrios MD PAST MEDICAL HISTORY: History reviewed. No pertinent past medical history. PAST SURGICAL HISTORY: Past Surgical History: Procedure Laterality Date ??? HERNIA REPAIR FAMILY HISTORY: No family history on file. SOCIAL HISTORY: Social History Tobacco Use ??? Smoking status: Current Every Day Smoker Packs/day: 1.50 Years: 10.00 Pack years: 15.00 Types: Cigarettes ??? Smokeless tobacco: Never Used Substance Use Topics ??? Alcohol use: Yes ??? Drug use: Yes Types: Marijuana Review of Systems Review of Systems Constitutional: Negative. HENT: Negative. Eyes: Negative. Respiratory: Negative. Cardiovascular: Negative. Gastrointestinal: Positive for anal bleeding, blood in stool and rectal pain. Negative for abdominal pain, constipation, diarrhea, nausea and vomiting. Endocrine: Negative. Genitourinary: Negative. Negative for difficulty urinating, dysuria, hematuria, penile pain, penileswelling, scrotal swelling and testicular pain. Musculoskeletal: Negative. Skin: Positive for rash (left groin and between buttocks). Allergic/Immunologic: Negative. Neurological: Negative. Hematological: Negative. Psychiatric/Behavioral: Negative. Physical Exam Filed Vitals: 04/25/20 1045 04/25/20 1049 BP: (!) 137/97 (!) 137/97 Pulse: 79 Resp: 16 16 Temp: 97.3 ??F (36.3 ??C) TempSrc: Temporal SpO2: 99% 99% Weight: 66.7 kg (147 lb) Height: 5' 7 (1.702 m) Physical Exam Vitals signs and nursing note reviewed. Constitutional: General: He is not in acute distress. Appearance: Normal appearance. He is not ill-appearing, toxic-appearing or diaphoretic. HENT: Head: Normocephalic and atraumatic. Neck: Musculoskeletal: Normal range of motion and neck supple. No neck rigidity or muscular tenderness. Cardiovascular: Rate and Rhythm: Normal rate and regular rhythm. Pulses: Normal pulses. Heart sounds: Normal heart sounds. No murmur. Pulmonary: Effort: Pulmonary effort is normal. No respiratory distress. Breath sounds: Normal breath sounds. No wheezing, rhonchi or rales. Abdominal: General: Abdomen is flat. Bowel sounds are normal. There is no distension. Palpations: Abdomen is soft. Tenderness: There is no abdominal tenderness. There is no guarding. Genitourinary: Comments: No external hemorrhoids or bleeding on rectal exam. Small anal fissure with heaping of scar tissue at 6 oclock lithotomy position, no active bleeding Skin: General: Skin is warm and dry. Capillary Refill: Capillary refill takes less than 2 seconds. Findings: Rash (erythematous macular rash left groin 4cm area, no rash between gluteal folds but scratches noted.) present. Neurological: General: No focal deficit present. Mental Status: He is alert and oriented to person, place, and time. Psychiatric: Mood and Affect: Mood normal. Diagnostic Studies / Procedures ELECTROCARDIOGRAMS: No results found for this visit on 04/25/20. LABORATORY STUDIES: No results found for this visit on 04/25/20. IMAGING STUDIES No orders to display ED Course / Medical Decision Making ED Course as of Apr 25 113TueApr 25, 2020 1132 Long discussion with patient. Patient states he does not need a stool softener he feels that his stools are already soft enough. We will give him information on anal fissure. Advise following upwith primary care physician for potential colonoscopy if symptoms continue to recur although he does not have a family history of inflammatory bowel disease. We will try nystatin cream as patient hastried hydrocortisone cream and Neosporin to the rash. Follow-up with primary care physician. Returninstructions given. [MA] ED Course User Index [MA] Alison Barrios MD Clinical Impression Rectal bleeding (Primary) Anal fissure Ruth rash of groin Disposition: Discharge Alison Barrios MD 04/25/20 1135 * Shanon Noel RN - 04/25/2020 10:52 AM CDT Patient states that he went to the bathroom last night and there was blood in the stool. Not a large amount but enough to concern him. Also wants to get a rash checked out that is on his back and groin. documented in this encounter Plan of Treatment Not on file documented as of this encounter Visit Diagnoses Diagnosis Rectal bleeding- Primary Hemorrhage of rectum and anus Anal fissure Ruth rash of groin Other candidiasis of other specified sites documented in this encounter Care Teams Manager Dialysis Relationship Specialty Start Date End Date Jeet Lance PA [address] [place] [address] PCP - General PHYSICIAN JACQUARD CARD CUTTER 04/25/20 documented as of this encounter
--- OUTSIDE RECORDS SUMMARY | 2024-02-11 23:50 | XMS_ITS | Continuity of Care Document ---
Author Organization [facility], [address] [place] [address] [place] [facility] Address [address] [address] Care Team Providers Care Route Cdl Driver Name Role Phone KVNG JACOBSON Referring Provider [phone] Assessment Encounter Date Assessment Date Assessment LastModified by Organization Details LastModified Time 12/02/2023 12/02/2023 ASSESSMENT AND PLAN: 1. Urinary frequency, dysuria ? Negative cystoscopy, Dr. Park on 08/02/2023. We discussed his consumption of coffee and tea and little water are contributory. Recommend that he cut back on his caffeine intake and increase his water intake to a minimum of 2 liters daily. Will refer him to pelvic floor therapy for pelvic floor dysfunction, given he states he feels like he has difficulty relaxing to void. AUA symptom score 14. 2. Insomnia ? We discussed recommended reducing his caffeine intake. I recommended he establish with a primary care physician to help him through these issues. We discussed if he has untreated anxiety that can worsen his symptoms as well. He will follow up in 3 months for a re-evaluation of his symptoms after he completes pelvic floor therapy and after he gets established with a primary care physician. HISTORY OF PRESENT ILLNESS: A pleasant 28-year-old gentleman who presents today for follow-up. Initially, saw Abbie Ureña on 03/18/2023 for urinary frequency. She recommended cystoscopy, which he underwent on 08/02/[address] Park, which was negative. He treated the patient with doxycycline b.i.d. 10 days he presents today because he continues to have dysuria and urinary frequency. He reports he drinks a lot of coffee and tea daily and little water. He has trouble sleeping. He does not work due to ? medical issues? for which is girlfriend is concerned about and demanded he stay at home. He does not have a primary care physician. He denies gross hematuria. He is not concerned about STD exposure. He states that at times he drinks coffee just so that he can produce urine. REVIEW OF SYSTEMS CONST: No fevers or chills. RESP: No shortness of breath. CV: No chest pain. GI: No nausea, vomiting. Reviewed pertinent past medical history, surgical history, family history, social history. No changes except as noted. PHYSICAL EXAM CONST: The patient is alert and oriented. In no acute distress. EYES: Extraocular movements are intact. RESP: No respiratory distress. Symmetric chest expansion. GI: Abdomen is soft and nontender. No suprapubic or flank tenderness. MSK: There is no peripheral edema. SKIN: Skin warm and dry. Reviewed pertinent diagnostic tests, lab work, and imaging. These were reviewed with the patient. [facility] [email or web address] Not available 12/02/2023 19:30:52 Plan of Treatment Reminders Order Date Submit Date Provider Last Modified By Organization Details Last Modified Time Details Appointments Establish ed Patient 20.EST 2024 09:40A M Aruna Gomez Not available Not available Not available PT New Evaluatio n 60.NEW 2024 12:30P M Chichi Reynoso Not available Not available Not available Lab None recorded. Referral None recorded. Procedures None recorded. Surgeries None recorded. Imaging None recorded. Medication Orders None recorded. Patient TargetsNo targets recorded. Patient InstructionsNo instructions recorded. Reason for Referral None Reported. 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 Procedures Surgical History Date Name Laterality Status Provider Name and Address Organization Details Recorded Time 08/02/19 24 SC Procedure completed Nel Mohr [facility] 08/03/2023 08:06:59 Colonoscopy with biopsy completed Not Available Health Note 07/26/2023 15:07:24 Imaging Results None recorded. Procedure Notes None recorded. Medical Equipment None Reported. Allergies No known drug allergies Medications Name Sig Start Date Stop Date Status Note LastModified by Organization Details LastModified Time cyclobenzap rine 10 mg tablet TAKE 1 TABLET BY MOUTH THREE TIMES A DAY NEEDED 12/01 completed Not Available Not Available Not Available triamcinolo ne acetonide 0.5 % topical cream APPLY THIN COAT TO AFFECTED AREA TWICE A DAY 08/01 completed Not Available Not Available Not Available azithromyci n 250 mg tablet TAKE 2 TABLETS BY MOUTH TODAY, THEN TAKE 1 TABLET DAILY FOR 4 DAYS DIRECTED 08/01 completed Not Available Not Available Not Available sulfamethox azole 800 mg-trimetho prim 160 mg tablet TAKE 1 TABLET ONCE active Not Available Not Available No t Available benzonatate 100 mg capsule TAKE 1 CAPSULE BY MOUTH THREE TIMES DAILY 12/01 completed Not Available Not Available Not Available doxycycline monohydrate 100 mg capsule TAKE 1 CAPSULE BY MOUTH TWICE A DAY FOR 10 DAYS 12/01 completed Not Available Not Available Not Available oseltamivir 75 mg capsule TAKE 1 CAPSULE BY MOUTH EVERY 12 HOURS 08/01 completed Not Available Not Available Not Available doxycycline hyclate 100 mg tablet 100 MG ORALLY TWICE A DAY 08/01 completed Not Available Not Available Not Available varenicline tartrate 1 mg tablet TAKE 1 TABLET TWICE A DAY BY ORAL ROUTE FOR 90 DAYS. 08/01 completed Not Available Not Available Not Available varenicline tartrate 0.5 mg (11)-1 mg (42) tablets in a dose pack FOLLOW PACKAGE DIRECTION S 08/01 completed Not Available Not Available Not Available Vitals Date Recorded Body height Body mass index (BMI) Body weight Heart rate Oxygen saturation Oxygen saturation in Arterial blood by Pulse oximetry Systolic blood pressure Diastolic blood pressure Provider Name and Address Organization Details Last Updated DateTime 173.99 cm 23.6 kg/m2 24518.4 4 g 76 /min 98 % 98 % 128 mm[Hg] 88 mm[Hg] Christie Patel [facility] 11:03:50 Social History Question Answer Notes LastModified by Organizat ion Details LastModified Time Tobacco Smoking Status Current Every Day Smoker Christie Patel [facility] 12/02/2023 11:04:34 Do You Have An Advance Directive? No [email or web address] Information not available 07/26/2023 What Is Your Level Of Alcohol Consumption? Occasional [email or web address] Information not available 07/26/2023 How Many Times Per Week Do You Consume Alcohol? Less Than 1 Time Per Week [email or web address] Information not available 07/26/2023 What Is Your Level Of Caffeine Consumption? Moderate [email or web address] Information not available 07/26/2023 Are You Currently Employed? No [email or web address] Information not available 07/26/2023 Which Illicit Or Recreational Drugs Have You Used? Marijuana [email or web address] Information not available 07/26/2023 What Is Your Occupation? None [email or web address] Information not available 07/26/2023 How Many Times Per Week Do You Exercise? 1-2 Times Per Week [email or web address] Information not available 07/26/2023 Smokeless Tobacco? Former Smokeless Tobacco User [email or web address] Information not available 07/26/2023 How Many Packs Per Day (PPD)? 2 Packs Per Day [email or web address] Information not available 07/26/2023 How Long Have You Smoked? 19 Years [email or web address] Information not available 07/26/2023 Do You Have A Medical Power Of Duck Operator? No [email or web address] Information not available 07/26/2023 What Was The Date Of Your Most Recent Tobacco Screening? 08/02/2023 [email or web address] Information not available 07/26/2023 What Is Your Relationship Status? Domestic Partner [email or web address] Information not available 07/26/2023 Do You Use Any Illicit Or Recreational Drugs? Yes [email or web address] Information not available 07/26/2023 Sex: Unknown Functional Status Question Answer Note LastModified by Organization D etails LastModified Time What is your exercise level? None [email or web address] Information not available 07/26/2023 Mental Status None recorded. Family History Relationship Description Onset Age of this Age Resolved Age Notes LastModified by Organization Details LastModified Time Unspecified Relation Family history unknown [email or web address] Not available 2023 15:07:23 Medical History Condition Response High Blood Pressure N COPD N Depression Y Anxiety Disorder Y Arthritis N Cancer N Stroke N Fibromyalgia N Kidney Disease N Bleeding Disorder N Asthma N Seizures N Attention-deficit Hyperactivity Disorder N Thyroid Problems N Anemia N Diabetes N Hyperlipidemia N Heart Disease N Osteoporosis N Past Encounters Encounter ID Performer Location Encounter Start Date Encounter Closed Date Diagnosis/Indication Diagnosis SNOMED-CT Code Diagnosis ICD10 Code [id number] Hunter Park MD [address] [facility] [address] [place] [address],[address] [place] [phone] 12/02/2023 10:36:59 12/02/2023 12:10:18 Increased frequency of urination 582833329 R35.0 Dysuria 39747342 R30.0 Insomnia 357462469 G47.0 0 Health Concerns Section Related Observation LastModified by Organization Detai ls LastModified Time None Recorded Concern Status LastModified by Organization Details LastModified Time None Recorded Payers Encounter Date Sequence Insurance Name Policy Number Policy Mullins Covered Member ID Mullins Member ID Guarantor Name 12/02/2023 1 [facility] (MEDICAID HMO) [id number] Matias Calvin [id number] Matias Calvin
--- OUTSIDE RECORDS SUMMARY | 2024-02-11 23:50 | XMS_ITS | Encounter Summary ---
Author Organization [facility] Address [address] [place] [address]. [place], [place] [id number] [place] [id number] Care Team Providers Care Workforce Analyst Name Role Phone Jeet Lance Primary Care Provider [phone] Reason for Referral * (Routine) - Closed Specialty Diagnoses / Procedures Referred By Waqar t Referred To Contact Procedures LACERATION REPAIR Jerry Aranda MD Phone: tel: fax: Referral ID Status Reason Start Date Expiration Date Visits Re quested Visits Authorized [id number] Closed 11/22/2020 12/23/2021 1 1 Reason for Visit * Reason Comments Laceration Encounter Details Date Type Department Care Team (Late st Contact Info) Description 11/22/2020 1:10 PM CDT - 11/22/2020 2:30 PM CDT Emergency [facility] [place] [address] Jerry Aranda MD [address] [place] [address] Laceration Discharge Disposition: Home or Self Care (Routine Discharge) Social History Tobacco Use Types Packs/Day Years Used Date Smoking Tobacco: Every Day Cigarettes 1.5 10 Smokeless Tobacco: Never Alcohol Use Standard Drinks/Week Comments Yes 0 [...] have Coronavirus / COVID-19? No / Unsure 11/22/2020 1:14 PM CDT documented as of this encounter Last [...] Mass Index 21.77 11/22/2020 1:15 PM CDT documented in this encounter Discharge Instructions * Discharge Instructions* Jerry Aranda MD - 11/22/2020 1:48 PM CDT Sutures out in 10 days. Wound check in 2 to 3 days. * Attachments The following attachments cannot be sent through Care Everywhere. * Laceration Repair With Stitches Discharge Instructions (Eritrean) documented in this encounter ED Notes * Jerry Aranda MD - 11/22/2020 2:30 PM CDTAssociated Order(s): Lac Repair Chief Complaint Chief Complaint Patient presents with ??? Laceration History of Present Illness 25-year-old male complaining of right elbow laceration. Episode occurred 45 minutes before being seen in the ED. Patient said he was at work when the slid on the floor and hit his right elbow on the tile floor. Patient denies injuries to his head or ribs. Symptoms are mild to moderate and constant.Patient does complain of pain in the right elbow. Medical History ALLERGIES: No Known Allergies MEDICATIONS: Prior to Admission medications Not on File PAST MEDICAL HISTORY: History reviewed. No pertinent [...] Review of Systems Review of Systems Constitutional: Negative for fever. HENT: Negative for voice change. Respiratory: Negative for wheezing. Skin: Positive for wound. Neurological: Negative for speech difficulty. Psychiatric/Behavioral: Negative for agitation. All other systems reviewed and are negative. Physical Exam Filed Vitals: 11/22/20 1315 BP: 123/80 Pulse: 66 Resp: 18 Temp: 97.5 ??F (36.4 ??C) TempSrc: Temporal SpO2: 98% Weight: 63 kg (139 lb) Height: 5' 7 (1.702 m) Physical Exam Constitutional: General: He is not in acute distress. Appearance: He is well-developed. HENT: Head: Atraumatic. Neck: Comments: Normal inspection Cardiovascular: Rate and Rhythm: Normal rate and regular rhythm. Heart sounds: No murmur. Pulmonary: Effort: No respiratory distress. Breath sounds: Normal breath sounds. No stridor. No wheezing. Musculoskeletal: General: Normal range of motion. Comments: Right shoulder-nontender Right elbow-2 cm laceration over the olecranon with tenderness, no epicondyle tenderness Right wrist-nontender, normal radial pulse, normal wrapping clerk Skin: Findings: Lesion present. Neurological: General: No focal deficit present. Mental Status: He is alert. Psychiatric: Mood and Affect: Mood normal. Diagnostic Studies / Procedures ELECTROCARDIOGRAMS: No results found for this visit on 11/22/20. LABORATORY STUDIES: No results found for this visit on 11/22/20. IMAGING STUDIES XR ELBOW RT M3V Final Result by User, [id number] (11/22 0540) Procedure(s): XR ELBOW RT M3V Date of service: 11/22/2020 1:42 PM Provided clinical information: 25 years, Male, fall and laceration Procedure and materials: AP, lateral and oblique views Comparison studies: None. Observations: No elbow effusion. No fracture, dislocation or acute bony abnormality. Soft tissue irregularity is present about the posterior elbow. IMPRESSION: No acute bony abnormality. Soft tissue irregularity is present about the posterior elbow due to laceration. Referred By: Interpreted By: Vini Tsai MD, 11/22/2020 1:48 PM Lac Repair Date/Time: 11/22/2020 4:32 PM Performed by: Jerry Aranda MD Authorized by: Jerry Aranda MD Consent: Consent obtained: Verbal Consent given by: Patient Risks discussed: Infection Anesthesia (see MAR for exact dosages): Anesthesia method: Local infiltration Local anesthetic: Lidocaine 1% WITH epi Laceration details: Location: Shoulder/arm Shoulder/arm location: R elbow Length (cm): 2 Depth (mm): 3 Repair type: Repair type: Simple Pre-procedure details: Preparation: Patient was prepped and draped in usual sterile fashion Exploration: Hemostasis achieved with: Direct pressure Wound exploration: wound explored through full range of motion and entire depth of wound probed andvisualized Wound extent: no foreign bodies/material noted, no muscle damage noted, no nerve damage noted and no tendon damage noted Contaminated: no Treatment: Area cleansed with: Saline and Betadine Amount of cleaning: Standard Irrigation solution: Sterile saline Irrigation method: Syringe Visualized foreign bodies/material removed: no Skin repair: Repair method: Sutures Suture size: 3-0 Suture material: Nylon Suture technique: Simple interrupted Number of sutures: 3 Approximation: Approximation: Close Post-procedure details: Dressing: Sterile dressing and antibiotic ointment Patient tolerance of procedure: Tolerated well, no immediate complications ED Course / Medical Decision Making Tetanus updated Sutures out in 10 days Off work for 2 to 3 days MDM Number of Diagnoses or Management Options Laceration of right elbow, initial encounter: new and requires workup Amount and/or Complexity of Data Reviewed Tests in the radiology section of CPT??: reviewed Risk of Complications, Morbidity, and/or Mortality Presenting problems: low Diagnostic procedures: moderate Management options: moderate Patient Progress Patient progress: improved Clinical Impression Laceration of right elbow, initial encounter (Primary) Disposition: Discharge Jerry Aranda MD 11/22/20 1634 * Faby Howard RN - 11/22/2020 2:28 PM CDT Bacitracin and 4x4 applied with coban by radha francisco rn * Faby Howard RN - 11/22/2020 1:17 PM CDT Ambulatory with c/o falling at work at [employer]. C/o pain and laceration to right elbow. documented in this encounter Plan of Treatment Not on file documented as of this encounter Procedures Procedure Name Priority Date/Time Associated Diagnosis Comments LACERATION REPAIR Routine 11/22/2020 2:3 0 PM CDT XR ELBOW RT M3V STAT 11/22/2020 1:42 PM CDT documented in this encounter Results * Lac Repair (11/22/2020 2:30 PM CDT) Narrative Jerry Aranda MD - 11/22/2020 2:30 PM CDT Jerry Aranda MD ? 11/22/2020 ??4:34 PM Lac Repair Date/Time: 11/22/2020 4:32 PM Performed by: Jerry Aranda MD Authorized by: Jerry Aranda MD Consent: ??Consent obtained: ??Verbal ??Consent given by: ??Patient ??Risks discussed: ??Infection Anesthesia (see MAR for exact dosages): ??Anesthesia method: ??Local infiltration ??Local anesthetic: ??Lidocaine 1% WITH epi Laceration details: ??Location: ??Shoulder/arm ??Shoulder/arm location: ??R elbow ??Length (cm): ??2 ??Depth (mm): ??3 Repair type: ??Repair type: ??Simple Pre-procedure details: ??Preparation: ??Patient was prepped and draped in usual sterile fashion Exploration: ??Hemostasis achieved with: ??Direct pressure ??Wound exploration: wound explored through full range of motion and entire depth of wound probed and visualized ?Wound extent: no foreign bodies/material noted, no muscle damage noted, no nerve damage noted and no tendon damage noted ?Contaminated: no ?? Treatment: ??Area cleansed with: ??Saline and Betadine ??Amount of cleaning: ??Standard ??Irrigation solution: ??Sterile saline ??Irrigation method: ??Syringe ??Visualized foreign bodies/material removed: no ?? Skin repair: ??Repair method: ??Sutures ??Suture size: ??3-0 ??Suture material: ??Nylon ??Suture technique: ??Simple interrupted ??Number of sutures: ??3 Approximation: ??Approximation: ??Close Post-procedure details: ??Dressing: ??Sterile dressing and antibiotic ointment ??Patient tolerance of procedure: ??Tolerated well, no immediate complications us Jerry Aranda MD PROCEDURE/MINOR SURGICAL ORDERAB LES Final Result * XR ELBOW RT M3V (11/22/2020 1:42 PM CDT) Anatomical Region Laterality Modality Elbow Radiographic Amy ging 11/22/2020 1:48 PM CDT Impressions 11/22/2020 1:50 PM CDT IMPRESSION: No acute bony abnormality. ??Soft tissue irregularity is present about the posterior elbow due to laceration. Referred By: ?? Interpreted By: Vini Tsai MD, 11/22/2020 1:48 PM Narrative 11/22/2020 1:50 PM CDT Procedure(s): XR ELBOW RT M3V Date of service: 11/22/2020 1:42 PM Provided clinical information: 25 years, Male, fall and laceration Procedure and materials: AP, lateral and oblique views Comparison studies: None. Observations: ?? No elbow effusion. No fracture, dislocation or acute bony abnormality. ??Soft tissue irregularity is present about the posterior elbow. Procedure Note Vini Tsai MD - 11/22/2020 Procedure(s): XR ELBOW RT M3V Date of service: 11/22/2020 1:42 PM Provided clinical information: 25 years, Male, fall and laceration Procedure and materials: AP, lateral and oblique views Comparison studies: None. Observations: No elbow effusion. No fracture, dislocation or acute bony abnormality. Soft tissueirregularity is present about the posterior elbow. IMPRESSION: No acute bony abnormality. Soft tissue irregularity is present about theposterior elbow due to laceration. Referred By: Interpreted By: Vini Tsai MD, 11/22/2020 1:48 PM Jerry Aranda MD GENERAL IMAGING Final Result documented in this encounter Visit Diagnoses Diagnosis Laceration of right elbow, initial encounter- Primary documented in this encounter Administered Medications Inactive Administered Medications - up to 3 most recent administrations Medication Order MAR Action Action Date Dose Rate Site bacitracin ointment Topical, Once, 1 dose, On 11/22/20 at 1415 Given 11/22/2020 2:22 PM CDT documented in this encounter Active and Recently Administered Medications Times are shown in CDT. Scheduled Medication Order 11/20/2020 11/21/2020 11/22/2020 bacitracin ointment (COMPLETED) Topical, Once, 1 dose, On 11/22/20 at 1415 1422 (Given - Provid er: Matthew Francisco RN) documented in this encounter Care Teams Workforce Analyst Relationship Specialty Start Date End Date Jeet Lance PA [address] [place] [address] PCP - General PHYSICIAN SHIFT ENGINEER 04/25/20 documented as of this encounter
--- OUTSIDE RECORDS SUMMARY | 2024-02-11 23:50 | XMS_ITS | Clinical Summary ---
Author Organization [facility] Address [address] [place] [address] Phone Care Team Providers Care Box Bender Name Role Phone Jeet Lance Primary Care Provider [phone] Allergies No known active allergies Medications clotrimazole (LOTRIMIN) 1 % Cream clotrimazole 1 % topical cream Active cyclobenzaprin e (FLEXERIL) 10 MG Tablet cyclobenzaprine 10 mg tablet Active naproxen (NAPROSYN) 500 MG Tablet naproxen 500 mg tablet Active traMADol (ULTRAM) 50 MG Tablet Take 1 Tablet by mouth every 6 hours as needed for Moderate or more severe pain. 20 Tablet 05/30/19 21 Active Social History Tobacco Use Types Packs/Day Years Used Date Smoking Tobacco: Every Day Cigarettes Smokeless Tobacco: Never Tobacco Cessation:Ready to Q uit: No; Counseling Given: No Alcohol Use Standard Drinks/Week Comments Yes 0 (1 standard drink = 0.6 oz pur e alcohol) socially Sex and Gender Information Value Date Recorded Sex Assigned at Not on file Legal Sex Male 10:56 PM CDT Gender Identity Not on file Sexual Orientation Not on file Last Filed Vital Signs Vital Sign Reading Time Taken Comments Blood Pressure 119/63 05/29/2020 8:30 PM CDT Pulse 72 05/29/2020 8:30 PM CDT Temperature 36.3 ??C (97.4 ??F) 05/29/2020 7:17 PM CD T Respiratory Rate 18 05/29/2020 8:30 PM CDT Oxygen Saturation 99% 05/29/2020 8:30 PM CDT Inhaled Oxygen Concentration - - Weight 64.4 kg (142 lb) 05/29/2020 7:17 PM CDT Height 171.5 cm (5' 7.5 ) 05/29/2020 7:17 PM CDT Body Mass Index 21.91 05/29/2020 7:17 PM CDT Plan of Treatment Health Maintenance Due Date Last Done Comments Hepatitis C Virus (HCV) Screening 1994 TdaP Immunization 1994 Hepatitis B Immunization (1 of 3 - 19+ 3-dose series) 2013 Influenza Immunization (#1) 2023 SARS-COV-2 Immunization (2023- season) 2023 Respiratory Syncytial Virus (RSV) Immunization (Adult) (1 - 1-dose 75+ series) 2069 Meningococcal Immunization (ACWY) Aged Out No longer eligible based on patient's age to complete this topic Pneumococcal Immunization Combined Aged Out No longer eligible based on patient's age to complete this topic Rotavirus Immunization Aged Out No lo nger eligible based on patient's age to complete this topic Insurance [place]ICAID [place] Care Teams Box Bender Relationship Specialty Start Date End Date Jeet Lance PAC [address] [place] [address] PCP - General Physician Surg Tech 12/20/17
--- OUTSIDE RECORDS SUMMARY | 2024-02-11 23:50 | XMS_ITS | Encounter Summary ---
Author Organization [facility] Address [address] [place] [address]. [place], [place] [id number] [place] [address] Care Team Providers Care Refinery Operator Reforming Unit Name Role Phone Jeet Lance Primary Care Provider [phone] Encounter Details Date Type Department Care Team (Latest Contact Info) Description 04/25/2020 Travel Social History Tobacco Use Types Packs/Day Years [...] AM CDT documented as of this encounter Plan of Treatment Not on file documented as of this encounter Visit Diagnoses Not on filedocumented in this encounter Care Teams Refinery Operator Reforming Unit Relationship Specialty Start Date End Date Jeet Lance PA [address] [place] [address] PCP - General PHYSICIAN MARKETING CONSULTANT 04/25/20 documented as of this encounter
--- OUTSIDE RECORDS SUMMARY | 2024-02-11 23:50 | XMS_ITS | Encounter Summary ---
Author Organization [facility] Address [address] [place] [address] Phone Care Team Providers Care Leadership Development Manager Name Role Phone Jeet Lance Primary Care Provider [phone] Reason for Visit * Reason Comments Hernia Encounter Details Date Type Department Care Team (Late st Contact Info) Description 05/29/2020 7:28 PM CDT - 05/29/2020 8:32 PM CDT Emergency [facility] Emergency [address] [place] [address] Justa Aguilar, PAC [address] [place] [address] Right groin pain Discharge Disposition: Discharged to home or Selfcare Social History Tobacco Use Types Packs/Day Years Used Date Smoking Tobacco: Every Day Cigarettes Smokeless Tobacco: Never Alcohol Use Standard Drinks/Week [...] have Coronavirus / COVID-19? No / Unsure 05/29/2020 7:19 PM CDT documented as of this encounter [...] Mass Index 21.91 05/29/2020 7:17 PM CDT documented in this encounter Discharge Instructions * Discharge Instructions* Justa Aguilar PAC - 05/29/2020 8:01 PM CDT Please follow up with the surgeon as scheduled. Return if you have any worsening symptoms. * Attachments The following attachments cannot be sent through Care Everywhere. * Hernia (Adult) (Angolan) documented in this encounter Medications at Time of Discharge clotrimazole (LOTRIMIN) 1 % Cream clotrimazole 1 % topical cream cyclobenzaprine (FLEXERIL) 10 MG Tablet cyclobenzaprine 10 mg tablet naproxen (NAPROSYN) 500 MG Tablet naproxen 500 mg tablet traMADol (ULTRAM) 50 MG Tablet Take 1 Tablet by mouth every 6 hours as needed for Moderate or more severe pain. 20 Tablet 05/29/2020 documented as of this encounter ED Notes * Katiuska Rosado RN - 05/29/2020 8:31 PM CDT Patient discharged. Discharge instructions and patient educational material reviewed with patient; questions and concerns addressed; patient verbalizes understanding, using teach back. Patient was given 1 prescriptions. Patient was informed no drinking alcohol, driving or operating heavy machinery while taking narcotics or muscle relaxants. Patient discharged per ambulatory mode as responsible republican. * Katiuska Rosado RN - 05/29/2020 8:08 PM CDT Pt medicated per provider orders. Pt educated on intended effects and side effects of medication and verbalized understanding, able to provide teach back of education. Patient is resting in room withcall light at bedside. Patient informed about wait time and verbalizes understanding. Patient denies needs at this time and verbalizes understanding that RN will complete hourly rounding. * Justa Aguilar PAC - 05/29/2020 7:53 PM CDT Chief Complaint Patient presents with ??? Hernia HPI Matias Calvin is a 25 y.o. male who presents due to R groin pain which has been occurring for the past 1-2 weeks. Patient states that he had a R inguinal hernia repair with a surgeon at [facility] in 11/2019. He states that he started to have a reoccurrence of pain 1-2 weeks ago when he jumped up to flick a cigarette and started to have pain in this region. He states that he was seen at [place] 05/23/20 which did not display a hernia and he has a follow up with his surgeon 06/05/20. He states he is here for a possible ultrasound in case the CT missed one and for pain because ibuprofen 800 mg is not helping. He denies any dysuria, hematuria, penile discharge, vomiting, diarrhea, constipation, fever. His pcp is Jeet Lance. Current Facility-Administered Medications Medication Dose Route Frequency Provider Last Rate Last Admin ??? traMADol (ULTRAM) tablet 50 mg 50 mg Oral Once Justa Aguilar, MAUREEN Current Outpatient Medications Medication Sig Dispense Refill ??? clotrimazole (LOTRIMIN) 1 % Cream clotrimazole 1 % topical cream ??? cyclobenzaprine (FLEXERIL) 10 MG Tablet cyclobenzaprine 10 mg tablet ??? naproxen (NAPROSYN) 500 MG Tablet naproxen 500 mg tablet ??? traMADol (ULTRAM) 50 MG Tablet Take 1 Tablet by mouth every 6 hours as needed for Moderate or more severe pain. 20 Tablet 0 No Known Allergies History reviewed. No pertinent past medical history. Past Surgical History: Procedure Laterality Date ??? FOREIGN BODY REMOVAL Right bee bee removed from right foot ??? HAND SURGERY ??? HERNIA REPAIR 11/2019 Social History Socioeconomic History ??? Marital status: Single Spouse name: Not on file ??? Number of children: Not on file ??? Years of education: Not on file ??? Highest education level: Not on file Occupational History ??? Not on file Tobacco Use ??? Smoking status: Current Every Day Smoker Packs/day: 1.00 Types: Cigarettes ??? Smokeless tobacco: Never Used Substance and Sexual Activity ??? Alcohol use: Yes Comment: socially ??? Drug use: No ??? Sexual activity: Not on file Other Topics Concern ??? Not on file Social History Narrative ??? Not on file Social Determinants of Health Social determinant risk not applicable to this patient. BP 127/68 Pulse 75 Temp 97.4 ??F (36.3 ??C) (Tympanic) Resp 18 Ht 5' 7.5 (1.715 m) Wt 142 lb (64.4 kg) SpO2 100% BMI 21.91 kg/m?? Review of Systems Constitutional: Negative for activity change, appetite change, fatigue and fever. HENT: Negative for congestion, ear pain, postnasal drip, rhinorrhea, sinus pressure, sore throat and trouble swallowing. Eyes: Negative for discharge and redness. Respiratory: Negative for cough, shortness of breath and wheezing. Cardiovascular: Negative for chest pain. Gastrointestinal: Negative for abdominal pain, constipation, diarrhea, nausea and vomiting. R groin pain Genitourinary: Negative for dysuria. Musculoskeletal: Negative for myalgias. Skin: Negative for rash. Neurological: Negative for dizziness and headaches. All other systems reviewed and are negative. Physical Exam Vitals and nursing note reviewed. Constitutional: General: He is not in acute distress. Appearance: He is well-developed. He is not diaphoretic. HENT: Head: Normocephalic and atraumatic. Right Ear: External ear normal. Left Ear: External ear normal. Eyes: General: No scleral icterus. Conjunctiva/sclera: Conjunctivae normal. Pupils: Pupils are equal, round, and reactive to light. Neck: Trachea: No tracheal deviation. Cardiovascular: Rate and Rhythm: Normal rate and regular rhythm. Heart sounds: Normal heart sounds. No murmur. Pulmonary: Effort: Pulmonary effort is normal. No respiratory distress. Breath sounds: Normal breath sounds. No wheezing or rales. Abdominal: General: Bowel sounds are normal. There is no distension. Palpations: Abdomen is soft. Tenderness: There is no abdominal tenderness. There is no guarding or rebound. Genitourinary: Comments: Tenderness to R groin. No definite palpable hernia. No edema. No testicular involvement. No palpable lymph nodes. Musculoskeletal: General: Normal range of motion. Cervical back: Normal range of motion. Skin: General: Skin is warm and dry. Neurological: Mental Status: He is alert and oriented to person, place, and time. Cranial Nerves: No cranial nerve deficit. Coordination: Coordination normal. Labs Reviewed URINALYSIS REFLEX IF INDICATED BY ABNORMAL RESULTS CHLAMYDIA & GC DNA PROBE Narrative: The following orders were created for panel order Chlamydia & GC DNA ([place] or Blue swab). Procedure Abnormality Status --------- ------ CHLAMYDIA & GC DNA PROBE...[[id number]] Please view results for these tests on the individual orders. CHLAMYDIA & GC DNA PROBE > 12 URINALYSIS REFLEX IF INDICATED BY ABNORMAL RESULTS (Results Pending) Chlamydia & GC DNA ([place] or Blue swab) (Results Pending) CHLAMYDIA & GC DNA PROBE > 12 (Results Pending) Procedures Imaging Results None MDM Coding Clinical Impression 1. Right groin pain, possible right inguinal hernia There was no definite palpable hernia. He is concerned about working as he does heavy lifting at work. He was given a note for work and was given tramadol for pain. He understands to return if symptoms change or worsen. Cosigned by Juan Avina MD at 05/30/2020 3:42 AM CDT * Katiuska Rosado RN - 05/29/2020 7:36 PM CDT No change in pt condition since triage, see triage note. Pt reporting right groin pain. Denies any N/V/D or urinary symptoms. Pt is resting comfortably on stretcher. No signs of distress noted. * Kelsey Hidalgo RN - 05/29/2020 7:20 PM CDT Patient presents to triage ambulatory with complaint of right lower quadrant abdominal pain since returning back to work Tuesday. States he had hernia surgery in November of 2019, and the hernia was better, but now it has gotten worse again. Had a CT scan of the area at [facility] on Tuesday05/23/20 and it showed that everything is normal. Denies any nausea, vomiting or diarrhea. States painis worse when lifting. Alert and oriented x4. Respirations non labored. documented in this encounter Plan of Treatment Not on file documented as of this encounter Procedures Procedure Name Priority Date/Time Associated Diagnosis Comments CHLAMYDIA & GC DNA PROBE > 12 STAT 05/29/2020 7:57 PM CDT URINALYSIS REFLEX IF INDICATED BY ABNORMAL RESULTS STAT 05/29/2020 7:57 PM CDT CHLAMYDIA & GC DNA PROBE STAT 05/29/2020 7:57 PM CDT documented in this encounter Results * CHLAMYDIA & GC DNA PROBE > 12 (05/29/2020 7:57 PM CDT) CHLAMYDIA DNA NEGATIVE NEGATIVE 06/01/2020 11:33 AM CDT [facility] Comment: Presumed negative for C. trachomatis. ??A negative result does not preclude C. trachomatis infection because results are dependent on adequate specimen collection, absence of inhibitors, and sufficient DNA to be detected. This test was performed using Polymerase Chain Reaction (PCR) on the [employer]i Cait 4800 System. GC DNA NEGATIVE NEGATIVE 06/01/2020 11:33 AM CDT [facility] Comment: Presumed negative for N. gonorrhoeae. ??A negative result does not preclude N. gonorrhoeae infection because results are dependent on adequate specimen collection, absence of inhibitors, and sufficient DNA to be detected. This test was performed using Polymerase Chain Reaction (PCR) on the [employer] Cait 4800 System. Other URINE / Unknown Non-Phlebotomy Collection / Unknown 05/29/2020 7:57 PM CDT 05/29/2020 8:05 PM CDT us Justa Aranda Page PAC MICROBIOLOGY - GENERAL ORDER YOVANI Final Result [facility] [address] [place] [address], * URINALYSIS REFLEX IF INDICATED BY ABNORMAL RESULTS (05/29/2020 7:57 PM CDT) SPECIFIC GRAVITY 1.020 1.003 - 1.030 05/29/2020 8:15 PM CDT [facility] URINE PH 5.0 5.0 - 9.0 05/29/2020 8:15 PM CDT [facility] WBC ESTERASE Negative Negative 05/29/2020 8:15 PM CDT [facility] NITRITE Negative Negative 05/29/2020 8:15 PM CDT [facility] PROTEIN, RANDOM URINE Negative Negative 05/29/2020 8:15 PM CDT [facility] URINE GLUCOSE, QUAL Negative Negative 05/29/2020 8:15 PM CDT [facility] URINE KETONES Negative Negative 05/29/2020 8:15 PM CDT [facility] UROBILINOGEN Normal Normal mg/dL 05/29/2020 8:15 PM CDT [facility] URINE BILIRUBIN Negative Negative 8:15 PM CDT [facility] URINE BLOOD Negative Negative julisa/ul 05/29/2020 8:15 PM CDT [facility] URINALYSIS COLOR Yellow 05/30/19 8:15 PM CDT [facility] URINALYSIS CLARITY Clear 05/29/2020 8:15 PM CDT [facility] Urine URINE SPECIMEN / Unknown Non-Phlebotomy Collection / Unknown 05/29/2020 7:57 PM CDT 05/29/2020 8:05 PM CDT us Justa Aranda Page PAC URINE ORDERABLES Final Resul t [facility] [address] [facility] [place] [address] documented in this encounter Visit Diagnoses Diagnosis Right groin pain, possible right inguinal hernia- Primary Abdominal pain, right lower quadrant documented in this encounter Administered Medications Inactive Administered Medications - up to 3 most recent administrations Medication Order MAR Action Action Date Dose Rate Site traMADol (ULTRAM) tablet 50 mg 50 mg, Oral, ONCE, 1 dose, On Christine 05/29/20 at 2030 Given 05/29/2020 8:07 PM CDT 50 mg documented in this encounter Active and Recently Administered Medications Times are shown in CDT. Scheduled Medication Order 05/27/2020 05/28/2020 05/29/2020 traMADol (ULTRAM) tablet 50 mg (COMPLETED) 50 mg, Oral, ONCE, 1 dose, On Christine 05/29/20 at 2029 2006 (Given - Provid er: Katiuska Rosado RN) documented in this encounter Care Teams Leadership Development Manager Relationship Specialty Start Date End Date Jeet Lance, MAUREEN [address] [place] [address] PCP - General Physician Horse Breeder 12/20/17 documented as of this encounter
--- OUTSIDE RECORDS SUMMARY | 2024-02-11 23:50 | XMS_ITS | Data Portability ---
Author Organization [facility], [address] [place] [address] Neurology ([place]) Address [address] [address] Care Team Providers Care Legal Paraprofessional Name Role Phone KVNG JACOBSON Referring Provider Assessment Encounter Date Assessment Date Assessment LastModified by Organization Details LastModified Time 08/02/2023 08/02/2023 IMPRESSION: Dysuria. Negative cysto, negative CT. Etiology unclear. He adamantly denies any exposure for recent STDs. PLAN: Will try doxycycline 1 p.o. b.i.d. for 10 days with 1 refill. If symptoms persist, he will follow up with Aruna Gomez. If symptoms persist, consider evaluation for STD or other causes, but cysto is normal today. ils lsines Not available 08/03/2023 08:07:17 12/02/2023 12/02/2023 ASSESSMENT AND PLAN: 1. Urinary [...] imaging. These were reviewed with the patient. [facility] [email or web address] Not available 12/02/2023 19:30:52 Plan of Treatment [...] instructions recorded. Reason for Referral None Reported. Results Created Date Observation Date Name Description Value Unit Range Abnormal Flag Note LastModifiedBy Organization Detail LastModifiedTime 08/02/19 24 08/02/2023 NON-G YN CYTOL OGY ngyn Perfo [facility]med at[facility] Order ing Provi ruben: Robert r, Parker t Patie nt Name: DEEDEE BALDERAS #: [id number] /[id number] ge/Ge nder: 01/21 (Age: 28) / Kay Massey dure Date: 2023 SP ECIME N RECEI MARCIA * Urine , not other gutierrez speci fied Speci men Adequ acy Satis facto ry for evalu ation Cytol ogic Diagn osis Negat [facility] [employer] [employer] uroth elial carci noma PL EL ECTRO NICAL LY VERIF IED BY QUYEN CLARK MD 2023 15:04 CL INICA L HISTO RY Benig n prost atic hyper plasi a with lower urina ry tract sympt oms GR OSS DESCR IPTIO N 50 mLs of unfix ed, yello w fluid is submi tted for cytol ogic evalu ation . 1 cytoc entri fuge prepa ratio n is evalu ated. END OF T Not Available Wi Only - [facility] [address] [place] [address], [address], 08/03/2023 16:10:18 08/02/19 24 08/02/2023 cytol ogy, urine urine cytology * Speci men colle cted and sent out for testi ng by [facility]. Resul ts will flow into the elect ronic recor d and the provi ruben will recei ve a 'Revi ew Docum ent' task at that time. Not Available [facility] - [facility] [address] [place] [address], [address], 08/02/2023 14:43:44 Result Notes None recorded. 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 Procedures Surgical History Date Name Laterality Status Provider Name and Address Organization Details Recorded Time 08/02/19 SC Procedure completed Nel Mohr [facility] 08/03/2023 08:06:59 Colonoscopy with biopsy completed [...] tablet 100 MG ORALLY TWICE A DAY 06/25 /2024 completed Not Available Not Available Not Available [...] height Body mass index (BMI) Body weight Systolic blood pressure Diastolic blood pressure Provider Name and Address Organization Details Last Updated DateTime 08/02/2023 170.18 cm 24.4 kg/m2 93667.97 g 118 mm[Hg] 72 mm[Hg] Joslyn Tinajero [facility] 13:58:33 Date Recorded Body height Body mass index (BMI) Body weight Heart rate Oxygen saturation Oxygen saturation in Arterial blood by Pulse oximetry Systolic blood pressure Diastolic blood pressure Provider Name and Address Organization Details Last Updated DateTime 173.99 cm 23.6 kg/m2 66684.4 4 g 76 /min 98 % 98 % 128 mm[Hg] 88 mm[Hg] Christie Patel [facility] 11:03:50 Social History Question Answer Notes LastModified by Organizat ion Details LastModified Time Tobacco Smoking Status Current Every Day Smoker Christie Patel [facility] 12/02/2023 11:04:34 Do You Have An Advance [...] Do You Have A Medical Power Of Mailing Clerk? No [email or web address] Information not available 07/26/2023 What [...] Diagnosis/Indication Diagnosis SNOMED-CT Code Diagnosis ICD10 Code Diagnosis Note [id number] Hunter Park MD [address] [place] [address] [place]rology ([place]) [address] [place] [phone] 08/02/2023 11:46:02 08/02/2023 15:36:16 Dysuria 31980666 R30.0 [id number] Hunter Park MD [address] [facility] [place]rology ([place]) [address] [place] [phone] 12/02/2023 10:36:59 12/02/2023 12:10:18 Increased frequency of urination 413459222 R35.0 Dysuria 79573937 R30.0 Insomnia 334558590 G47.0 0 Health Concerns Section Related Observation LastModified by Organization Detai ls LastModified Time None Recorded Concern Status LastModified by Organization Details LastModified Time None Recorded Advance Directives Directive N: Payers Encounter Date Sequence Insurance Name Policy Number Policy Mullins Covered Member ID Mullins Member ID Guarantor Name 08/02/2023 1 [facility] (MEDICAID HMO) [id number] [facility] [id number] [facility] 12/02/2023 1 [facility] (MEDICAID HMO) [id number] [facility] [id number] [facility] Notes Date Note Type Note Provider Name and Address Organization Details Recorded Time 08/02/2023 text/html A 28-year-old seen by Abbie Ureña with urinary urgency, frequency. This has been going on for several months. Culture apparently has been negative.[facility] Hunter Park MD [address] [place] [address], [phone], [facility] 08/05/2023 09:56:14
--- OUTSIDE RECORDS SUMMARY | 2024-02-11 23:50 | XMS_ITS | Encounter Summary ---
Author Organization [facility] Address [address] [place] [address]. [place], [place] [id number] [place] [address] Care Team Providers Care Food Service Worker [facility] Name Role Phone Jeet Lance Primary Care Provider [phone] Encounter Details Date Type Department Care Team (Latest Contact Info) Description 11/22/2020 Travel Social History Tobacco Use Types Packs/Day [...] PM CDT documented as of this encounter Plan of Treatment Not on file documented as of this encounter Visit Diagnoses Not on filedocumented in this encounter Care Teams Food Service Worker Hospital Relationship Specialty Start Date End Date Jeet Lance PA [address] [place] [address] PCP - General PHYSICIAN HOT HEAD MACHINE OPERATOR 04/25/20 documented as of this encounter
--- OUTSIDE RECORDS SUMMARY | 2024-02-11 23:50 | XMS_ITS | Encounter Summary ---
Author Organization [facility] Care Team Providers Care Tax Accountant Name Role Phone Jeet Lance PAC Primary Care Provider [phone] Encounter Details Date Type Department Care Team (Latest Contact Info) Description 05/29/2020 Travel Social History Tobacco Use Types Packs/Day [...] on filedocumented in this encounter Care Teams Tax Accountant Relationship Specialty Start Date End Date Jeet Lance PAC [address] [place] [id number] PCP - General Physician Nut Process Helper 12/20/17 documented as of this encounter
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
--- OUTSIDE RECORDS SUMMARY | 2024-02-11 23:51 | XMS_ITS | Encounter Summary ---
Author Organization [facility] Medical Group Address [address] [place] [address] Care Team Providers Care Biological Chemist Name Role Phone Jeet Lance Primary Care Provider [phone] Reason for Visit * Reason Comments Hernia [facility] Encounter Details Date Type Department Care Team (Late st Contact Info) Description 06/27/2018 10:45 AM CDT Office Visit [facility] [address] [facility] [address] [place] [id number] Piedad Ruiz NP 4 [facility] [address] [place] [address] Right groin pain (Primary Dx) Social History Tobacco Use Types Packs/Day Years Used Date Smoking Tobacco: Every Day Cigarettes Alcohol Use Standard Drinks/Week Comments Yes 0 (1 standard drink = 0.6 oz pur e alcohol) Sex and Gender Information Value Date Recorded Sex Assigned at Not on file 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 male. Chief Complaint Hernia (RIH) Other This is a new problem. Episode onset: approx 1 month ago. The problem occurs daily. The problem hasbeen waxing and waning. Associated symptoms include abdominal pain and chest pain (not current). Pertinent negatives include no coughing, diaphoresis, fatigue, fever, headaches, nausea, vomiting or weakness. Associated symptoms comments: Right scrotal swelling Feels full fast, but trying to lose weight. Urinating issues but this has been happening for several months Pulling and burning of his abdominal wall with movement occurring for a few months, being treated with flexeril Chest pain that moves from one side of chest to the other and he states he has had for a long time but thinks its from smoking and rest relieves it.. The symptoms are aggravated by coughing and exertion. He has tried rest for the symptoms. The treatment provided moderate relief. Review of Systems Constitutional: Negative for diaphoresis, fatigue and fever. HENT: Negative. Eyes: Positive for visual disturbance. Respiratory: Negative. Negative for cough. Cardiovascular: Positive for chest pain (not current). Gastrointestinal: Positive for abdominal pain. Negative for nausea and vomiting. Endocrine: Negative. Genitourinary: Negative. Musculoskeletal: Positive for back pain. Skin: Negative. Allergic/Immunologic: Negative. Neurological: Negative. Negative for weakness and headaches. Hematological: Negative. Psychiatric/Behavioral: Negative. Physical Exam Constitutional: He is oriented to person, place, and time. He appears well- developed and well-nourished. No distress. Unkept HENT: Head: Normocephalic and atraumatic. Eyes: Right eye exhibits no discharge. Left eye exhibits no discharge. No scleral icterus. Neck: Neck supple. Cardiovascular: Normal rate, regular rhythm and intact distal pulses. Palpable radial pulse strong and regular Pulmonary/Chest: Effort normal. No stridor. No respiratory distress. He has no wheezes. Abdominal: Soft. He exhibits no distension and no mass. There is no tenderness. There is no reboundand no guarding. A hernia (right inguinal hernia, small, reducible) is present. Musculoskeletal: He exhibits no edema, tenderness or deformity. Neurological: He is alert and oriented to person, place, and time. Skin: Skin is warm and dry. Capillary refill takes less than 2 seconds. No rash noted. He is not diaphoretic. No erythema. No pallor. Psychiatric: He has a normal mood and affect. His behavior is normal. Judgment and thought content normal. Assessment/Plan Diagnoses and all orders for this visit: Right groin pain (R10.31) (Primary) Assessment & Plan: Patient is current every day smoker, 1/2-1ppd. Patient encouraged to quit smoking before elective surgery. Need CT evaluation for hernia extent (bowel involvement). The signs and symptoms of incarceration and strangulation discussed with patient and mother. Patient was hightly encouraged to seek medical attention for his chest pain but he refuses any workup or referral to cardiology. Patient was also given option for urology referral but he refused andstates he was worked up in the past by 2 other physicians. Orders: - CT Abdomen Pelvis W Contrast; Future Cosigned by Juan England MD at 07/12/2018 11:03 AM CDT documented in this encounter Miscellaneous Notes * Assessment & Plan Note - Piedad Ruiz NP - 06/28/2018 12:58 PM CDTAssociated Problem(s): Right groin pain Patient is current every day smoker, 1/2-1ppd. Patient encouraged to quit smoking before elective surgery. Need CT evaluation for hernia extent (bowel involvement). The signs and symptoms of incarceration and strangulation discussed with patient and mother. Patient was hightly encouraged to seek medical attention for his chest pain but he refuses any workup or referral to cardiology. Patient was also given option for urology referral but he refused andstates he was worked up in the past by 2 other physicians. documented in this encounter Plan of Treatment Not on file documented as of this encounter Visit Diagnoses Diagnosis Right groin pain- Primary Abdominal pain, right lower quadrant documented in this encounter Historical Medications * This list may reflect changes made after this encounter. cyclobenzaprine (FLEXERIL) 10 mg tablet cyclobenzaprine 10 mg tablet added in this encounter Care Teams Biological Chemist Relationship Specialty Start Date End Date Jeet Lance PA [address] [place] [address] PCP - General Family Practice 06/27/18 documented as of this encounter
--- OUTSIDE RECORDS SUMMARY | 2024-02-11 23:51 | XMS_ITS | Referral Summary ---
[facility] Organization [facility] Medical [facility] B Address [address] [place] [address] Care Team Providers Care Actuary Manager Name Role Phone Jeet Lance Primary Care Provider [phone] Allergies No known active allergies Medications cyclobenzaprin [...] 10/03/2009 OPV 1995,1994,1994 Tdap 08/03/2007,05/05/2005,04/26/2005 Varicella 01/24/1995 Social History Tobacco Use Types Packs/Day Years Used Date Smoking Tobacco: Every Day Cigarettes Alcohol Use Standard Drinks/Week Comments Yes 0 (1 standard drink = 0.6 oz pur e alcohol) Sex and Gender Information Value Date Recorded Sex Assigned at Not on file 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
--- OUTSIDE RECORDS SUMMARY | 2024-02-11 23:51 | XMS_ITS | Encounter Summary ---
Author Organization [facility] Medical Group Address [address] [place] [address] Care Team Providers Care Professional Advisor Name Role Phone Jeet Lance Primary Care Provider [phone] Encounter Details Date Type Department Care Team (Late st Contact Info) Description 07/14/2018 Imaging Exam [facility] [address] [place] [address] Piedad Ruiz NP 4 [facility] [address] [place] [address] Social History Tobacco Use Types Packs/Day Years Used Date Smoking Tobacco: Every Day Cigarettes Alcohol Use Standard Drinks/Week Comments Yes 0 (1 standard drink = 0.6 oz pur e alcohol) Sex and Gender Information Value Date Recorded Sex Assigned at Not on file 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 No inguinal hernia present. Patient was calledand notified. Symptoms were reviewed at this time, he states he has not had major episodes of pain or discomfort since interview but does continue to have some low grade discomfort at times. No surgical interventions at this time. Patient encouraged to call for changes in symptoms. documented in this encounter Plan of Treatment Not on file documented as of this encounter Visit Diagnoses Not on filedocumented in this encounter Care Teams Professional Advisor Relationship Specialty Start Date End Date Jeet Lance PA [address] [place] [address] PCP - General Family Practice 06/27/18 documented as of this encounter
--- OUTSIDE RECORDS SUMMARY | 2024-02-11 23:51 | XMS_ITS | Encounter Summary ---
Author Organization 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
== END 2024-02-04 15:49 | disposition home or self-care (01) ==
PROVIDERS: Emergency Provider Emergency Medicine
DX: J18.9 Pneumonia, unspecified organism (principal); F12.90 Cannabis use, unspecified, uncomplicated; Z87.891 Personal history of nicotine dependence; Z20.822 Contact with and (suspected) exposure to COVID-19
CPT/HCPCS: 71046; 87637; 99283

== ENCOUNTER 2024-07-14 18:55 | Emergency (ER) | payer OTHER, SELFPAY ==
--- NOTE | ~2024-07-14 | XR_ITS ---
EXAM: XR foot LT min 3V DATE: 07/14/2024 19:29 HISTORY: Dropped a heavy object on the left foot over 1st . COMPARISON: 11/06/2022. FINDINGS: Normal mineralization. No fracture or dislocation. No lytic or blastic lesion. Joint space s are maintained. No erosion or periosteal change. Soft tissues within normal limits. IMPRESSION: No acute osseous finding in the left foot. Reviewed, dictated and finalized at location K.
[2024-07-14 18:56] VITALS: BP 145/80; PULSE 70; RESP 16; TEMP 37.1; O2SAT 99
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
--- OUTSIDE RECORDS SUMMARY | 2024-07-14 18:57 | XMS_ITS | Referral Summary ---
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
--- OUTSIDE RECORDS SUMMARY | 2024-07-14 18:57 | XMS_ITS | Clinical Summary ---
Author Organization [facility] Address [address] [place] [address] Phone Care Team Providers Care Tangled Yarn Spool Straightener Name Role Phone Jeet Lance Primary Care Provider [phone] Allergies No known active allergies Medications clotrimazole [...] 72 05/29/2020 8:30 PM CDT Temperature 36.3 C (97.4 F) 05/29/2020 7:17 PM CDT Respiratory Rate 18 05/29/2020 8:30 PM CDT Oxygen Saturation 99% 05/29/2020 8:30 PM CDT Inhaled Oxygen Concentration - - Weight 64.4 kg (142 lb) 05/29/2020 7:17 PM CDT Height 171.5 cm (5' 7.5) 05/29/2020 7:17 PM CDT Body Mass Index 21.91 05/29/2020 7:17 PM CDT Plan of Treatment Health Maintenance Due Date Last Done Comments Hepatitis C Virus (HCV) Screening 1994 TdaP Immunization 1994 Hepatitis B Immunization (1 of 3 - 19+ 3-dose series) 2013 SARS-COV-2 Immunization ( - 2023- season) 2023 Influenza Immunization (Seas on Ended) 2024 Respiratory Syncytial Virus (RSV) Immunization (Adult) (1 - 1-dose 75+ series) 2069 Human Papillomavirus (HPV) Immunization Aged Out No longer eligible b ased on patient's age to complete this topic Meningococcal Immunization (ACWY) Aged Out No longer eligible based on patient's age to complete this topic Pneumococcal Immunization Combined Aged Out No longer eligible based on patient's age to complete this topic Rotavirus Immunization Aged Out No lo nger eligible based on patient's age to complete this topic Insurance MEDICAID [place] Care Teams Tangled Yarn Spool Straightener Relationship Specialty Start Date End Date Jeet Lance PAC [address] [place] [address] PCP - General Physician Pediatric Orthodontist 12/20/17
--- OUTSIDE RECORDS SUMMARY | 2024-07-14 18:57 | XMS_ITS | Data Portability ---
Author Organization [facility], [address] [place] [address] Neurology ([place]) Address [address] [address] Care Team Providers Care Fruit Or Nut Farmworker Name Role Phone KVNG JACOBSON Referring Provider [...] other causes, but cysto is normal today. [facility] lsines Not available 08/03/2023 08:07:17 12/02/2023 12/02/2023 ASSESSMENT AND PLAN: 1. Urinary frequency, dysuria Negative cystoscopy, Dr. Park on 08/02/2023. We [...] void. AUA symptom score 14. 2. Insomnia We discussed recommended reducing his caffeine intake. [...] sleeping. He does not work due to m edical issues for which is girlfriend is concerned about [...] imaging. These were reviewed with the patient. [email or web address] Not available 12/02/2023 19:30:52 Plan of Treatment Reminders Order Date Submit Date Provider Last Modified By Organization Details Last Modified Time Details Appointments Establish ed Patient 20.EST 2024 03:40P Kay Gomez Not available Not available Not available Lab [...] [facility] Order ing Provi ruben: Parker Batista Name: DEEDEE BALDERAS Accclyde vahe #: [id number] /A ge/Ge nder: 01/21 (Age: 28) / M Shilpa berge Date: 2023 SP ECIME N RECEI MARCIA [...] evalu ated. END OF T Not Available [place] Only - [facility] [address], [address], 08/03/2023 16:10:18 08/02/19 24 08/02/2023 cytol ogy, urine urine cytology * Speci men colle cted and sent out for testi ng by [facility]. Resul ts will flow into the elect ronic recor d and the provi ruben will recei ve a 'Revi ew Docum ent' task at that time. Not Available [facility] Only - [facility] [address], [address], 08/02/2023 14:43:44 Result Notes None recorded. Problems Name Problem SNOMED Code Status Onset Date Resolution Date Notes Provider Name and Address Organization Details Recorded Time Pelvic floor dysfunctio n 030381434 Active 2023 Christie Patel [facility] 4 12:51:56 Insomnia 010928171 Active 2023 Cecilia Freeman 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 4 11:57:01 Increased frequency of urination 331810174 Active 2023 Cecilia King [facility] 19:30:11 Dysuria 90014325 Active 2023 Cecilai King [facility] 19:30:16 Problem Notes None recorded. Procedures Surgical History Date Name Laterality Status Provider Name and Address Organization Details Recorded Time 08/02/19 SC Procedure completed Nel Mohr [facility] 08/03/2023 08:06:59 Colonoscopy with biopsy completed [...] Updated DateTime 08/02/2023 170.18 cm 24.4 kg/m2 43089.97 g 118 mm[Hg] 72 mm[Hg] Joslyn Tinajero [facility] 13:58:33 Date Recorded Body height Body mass index (BMI) Body weight Heart rate Oxygen saturation Oxygen saturation in Arterial blood by Pulse oximetry Systolic blood pressure Diastolic blood pressure Provider Name and Address Organization Details Last Updated DateTime 173.99 cm 23.6 kg/m2 52218.4 4 g 76 /min 98 % 98 % 128 mm[Hg] 88 mm[Hg] Christie Patel [facility] 11:03:50 Social History Question Answer Notes LastModified by Organizat ion Details LastModified Time Tobacco Smoking Status Current Every Day Smoker Christie Patel [facility] 12/02/2023 11:04:34 Do You Have An Advance Directive? No [email or web address] Information not available 07/26/2023 What Is Your Level Of Caffeine Consumption? Moderate [email or web address] Information not available 07/26/2023 Which Illicit Or Recreational Drugs Have You Used? Marijuana [email or web address] Information not available 07/26/2023 How Many [...] Do You Have A Medical Power Of Oxyacetylene Torch Operator? No [email or web address] Information not available 07/26/2023 What Was The Date Of Your Most Recent Tobacco Screening? 08/02/2023 [email or web address] Information not available 07/26/2023 What Is Your Relationship Status? Domestic Partner [email or web address] Information not available 07/26/2023 Sex: Unknown Functional Status Question Answer Note LastModified by Organizat ion Details LastModified Time How many times per week do you consume alcohol? Less than 1 time per week [email or web address] Information not available 07/26/2023 Do you use any illicit or recreational drugs? Yes [email or web address] Information not available 07/26/2023 What is your level of alcohol consumption? Occasional [email or web address] Information not available 07/26/2023 Are you currently employed? No [email or web address] Information not available 07/26/2023 What is your occupation? None [email or web address] Information not available 07/26/2023 What is your exercise level? None [email or web address] [...] SNOMED-CT Code Diagnosis ICD10 Code Diagnosis Note [id number] Hunter Park MD [address] [facility]) [address] [place] [address] [address] [place] [address] 08/02/2023 11:46:02 08/02/2023 15:36:16 Dysuria 08258909 R30.0 [id number] Aruna Gomez PA-C [address] [facility] [address] [facility] [address] [place] [address] 12/02/2023 10:36:59 12/02/2023 12:10:18 Increased frequency of urination 696278732 R35.0 Dysuria 93246342 R30.0 Insomnia 729704240 G47.0 0 Health Concerns Section Related Observation LastModified by Organization Detai ls LastModified Time None Recorded Concern Status LastModified by Organization Details LastModified Time None Recorded Advance Directives Directive N: Payers Insurance Date Sequence Insurance Name Policy Number Policy Mullins Covered Member ID Mullins Member ID Guarantor Name 09/14/2023 1 [facility] - DOS ON OR AFTER 20 (MEDICAID REPLACEMENT - HMO) Matias Calvin [id number] Matias Calvin 05/26/2024 1 [facility] (MEDICAID HMO) [id number] Matias Calvin [id number] Matias Calvin Notes Date Note Type Note Provider Name and Address Organization Details Recorded Time 08/02/2023 text/html A 28-year-old seen by Abbie Ureña with urinary urgency, frequency. This has been going on for several months. Culture apparently has been negative.[facility] Hunter Park MD [address] [facility], [place], [address], [facility] 08/05/2023 09:56:14
--- NOTE | 2024-07-14 19:15 | ED_ITS ---
HPI - Extremity Injury (Lower) General Chief Complaint: Extremity Injury, Lower Stated Complaint: left big toe pain Time Seen by Provider: 07/14/24 19:05 Source: patient Mode of arrival: ambulatory Limitations: no limitations History of Present Illness HPI Narrative: 29-year-old male presents to the ED after he dropped a heavy object over his left foot on the 1st metatarsal head. Complains of pain over left big toe and the 1st metatarsal. No other injuries noted complaint: foot injury Onset (ago): day(s) ( 1 day) Injury: Left: foot Type of Injury: blunt Place: home Severity: moderate Relieving factors: immobilization Exacerbating factors: weight bearing Context: direct blow Other symptoms: none Related Data Allergies Allergy/AdvReac Type Severity Reaction Status Date / Time Antihistamines - Alkylamine AdvReac Intermediate Difficulty Verified 07/14/24 19:09 Breathing Review of Systems Review of Systems: All systems reviewed & are unremarkable except as noted in HPI and below PMFSH Past Medical History Medical History Abnormal CT scan, colon Diarrhea Bipolar disorder Rectal bleeding Smoker ADHD Tobacco abuse Depression Surgical History Surgical History H/O laparoscopy 09/19/20 Incisional hernia repair 2. Laparoscopic adhesiolysis H/O inguinal hernia repair 11/20/19 RIH repair with mesh, davinci assisted S/P foot surgery, left Family History Family History Sibling Asthma ADHD Kidney stones Depression Unknown Heart disease Depression Social History Social History Smoking packs per day: 1.5 Smoking cigarettes per day: 30.0 Years smoked: 17 Smoking pack-years: 25.50 Smoking status: Former smoker Tobacco type: cigarettes Second hand tobacco smoke exposure: Yes Alcohol intake: current Drinks per week: 6 Alcohol use details: hard liquor Substance use: current Substance use type: marijuana Other substance usage details: smokes daily Last use: 08/05/20 Living arrangements: with family Additional living arrangements comments: Lives w/ significant other and her child Occupation/Education: occupation 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 Gender identity (if verbalized by the patient): Male Sexual Orientation (if Verbalized by the Patient): Straight or Heterosexual Spiritual care concerns: No Exam Narrative: vitals are stable Const: General: healthy appearing and no acute distress Nutritional Appearance: well nourished Orientation/consciousness: patient oriented x3 Limitations: no limitations HENMT: Head: normal to inspection Ears: external ears normal Face/Nose/Sinus: Normal external nose present Face and sinus: normal facial exam Mouth: Yes Normal oral and palatal mucosa present Throat: posterior oropharynx normal Eyes: Conjunctivae: conjunctivae normal Pupils: Equal, round and reactive pupils present EOM: EOMs intact bilaterally Direct Ophthalmoscopy: no photophobia Neck: Neck: normal visual inspection, no lymphadenopathy and no meningeal signs Chest: Chest palpation & inspection: normal inspection of the chest Resp: Effort & Inspection: normal respiratory effort Auscultation: clear to auscultation bilaterally Cardio: Rate: regular rate Rhythm: regular rhythm GI: GI Palp: Yes Soft to palpation Auscultation: normal bowel sounds Other: no tenderness/ rigidity /rebound. Back/Spine/Pelvis: Back: no CVA tenderness Skin: General skin exam: normal color Other: Abrasion over the top of the left metatarsal head Neuro: General: patient oriented x3, moves all extremities, no meningeal signs, no focal motor deficits and CN's II-XI intact bilaterally Extrem: Other: tenderness over the left big toe and the 1st metatarsal head. Normal range of motion of the 1st MP joint. Psych: Mental Status: mental status grossly normal Affect: normal affect Course Course Emergency Course: Foot injury-- x-ray of the foot does not show any fracture/dislocation abrasion over the 1st metatarsal head- Up-to-date on tetanus Vital Signs Vital signs: Vital Signs Temperature 37.1 C 07/14/24 18:56 Pulse Rate 70 07/14/24 18:56 Respiratory Rate 16 07/14/24 18:56 Blood Pressure 145/80 H 07/14/24 18:56 Pulse Oximetry 99 07/14/24 18:56 Oxygen Delivery Room Air 07/14/24 18:56 Temperature 37.1 C 07/14/24 18:56 Pulse Rate 70 07/14/24 18:56 Respiratory Rate 16 07/14/24 18:56 Blood Pressure 145/80 H 07/14/24 18:56 Pulse Oximetry 99 07/14/24 18:56 Oxygen Delivery Room Air 07/14/24 18:56 MDM - Extremity Injury (Lower) MDM Narrative Medical decision making narrative: abrasion left foot contusion left foot Differential Diagnosis Differential diagnosis: Likely fracture of toe Lab Data Attestation: I reviewed the patient's lab results. Discharge Plan Discharge Clinical Impression: Contusion of foot Qualifiers: Encounter type: initial encounter Laterality: left Qualified Code(s): S90.32XA - Contusion of left foot, initial encounter Patient Disposition: Home Condition: Stable Instructions: Antibiotic Form, Foot Contusion (ED) Patient Language: Montserratian Follow-up/Referrals: UNKNOWN,DOCTOR [Primary Care Provider] - Time of Disposition: 19:57
--- OUTSIDE RECORDS SUMMARY | 2024-07-14 19:55 | XMS_ITS | Referral Summary ---
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
--- OUTSIDE RECORDS SUMMARY | 2024-07-14 19:55 | XMS_ITS | Clinical Summary ---
Author Organization [facility] Address [address] [place] [address] Phone Care Team Providers Care Cutting Torch Operator Name Role Phone Jeet Lance Primary Care Provider [phone] Allergies No known active allergies Medications clotrimazole [...] this topic Insurance [place]ID [place] Care Teams Cutting Torch Operator Relationship Specialty Start Date End Date Jeet Lance PAC [address] [place] [address] PCP - General Physician Clinical Dietetic Technician 12/20/17
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
[2024-07-14 20:19] VITALS: BP 128/78; PULSE 71; RESP 16; TEMP 37; O2SAT 100
== END 2024-07-14 20:21 | disposition home or self-care (01) ==
PROVIDERS: Emergency Provider Internal Medicine Critical Care Medicine
DX: S90.32XA Contusion of left foot, initial encounter (principal); Z87.891 Personal history of nicotine dependence; W22.8XXA Striking against or struck by other objects, initial encounter
CPT/HCPCS: 73630; 99283

== ENCOUNTER 2024-07-22 11:03 | Emergency (ER) | payer OTHER, SELFPAY ==
--- NOTE | ~2024-07-22 | CT_ITS ---
CT of the Abdomen and Pelvis: Indication: Abdominal pain Technique: 2.5 mm axial scans were obtained through the abdomen and pelvis following intravenous adm inistration of 100 cc of Omnipaque 350. Dose reduction technique was used on this scan by utilizing a utomated exposure control and iterative reconstruction technique. The dose-length product (DLP) was 2 55.98 mGy-cm. COMPARISON: 11/12/2021 Findings: Scans through the lung bases are unremarkable. Stable small hypodense lesion in the inferior right hepatic lobe. The spleen, pancreas, gallbladder, adrenals and kidneys are within normal limits. No evidence of aortic aneurysm. No lymphadenopathy. No bowel obstruction or bowel wall thickening. There is no evidence to suggest acute appendicitis. Images through the pelvis were performed. Urinary bladder unremarkable. No pelvic mass. No ascites. Impression: No significant abnormalities seen. Reviewed, dictated and finalized at [facility]. Impression: No significant abnormalities seen.
[2024-07-22 11:03] VITALS: BP 152/90; PULSE 81; RESP 16; TEMP 36.9; O2SAT 99
--- NOTE | 2024-07-22 11:11 | ED_ITS ---
HPI - Abdominal Pain General Chief Complaint: Abdominal Pain Stated Complaint: abdominal pain Time Seen by Provider: 07/22/24 11:11 Source: patient Mode of arrival: ambulatory Limitations: no limitations History of Present Illness HPI narrative: patient is a 29-year-old male with right lower quadrant pain for the past week. No fever or chills. Patient is having nausea and vomiting. He has recurrent loose stools but at this time he has increased loose stools and not alternating with constipation like normal. He has an appetite and can tolerate food and water. The abdominal pain radiates from the right lower quadrant to the umbilicus. MD elicited complaint: abdominal pain ( Right lower quadrant) Pertinent past history: other ( patient has 2 right abdomen hernias repaired in the past) Onset (ago): week(s) ( 1) Pain Consistency: constant Location: RLQ Severity: moderate Pain scale (0-10): 5 Quality: stabbing and sharp Radiation: other ( umbilicus) Migration to: no migration Exacerbating factors: vomiting, movement and other ( palpation) Relieving factors: nothing Context: confirms other ( patient has right lower quadrant pain for the past week that is progressively getting worse and he came to ER for evaluation) Associated symptoms: nausea, vomiting and diarrhea Treatments prior to arrival: other ( none) Related Data Allergies Allergy/AdvReac Type Severity Reaction Status Date / Time Antihistamines - Alkylamine AdvReac Intermediate Difficulty Verified 07/14/24 19:09 Breathing Review of Systems 2 Review of Systems: All systems reviewed & are unremarkable except as noted in HPI and below Constitutional: Constitutional: Reports no additional constitutional complaints Eyes: Eyes: Reports no additional eye complaints ENT: Reports system reviewed and no additional complaints, except as documented Cardiovascular: Cardiovascular: Reports no additional cardiovascular complaints Respiratory: Respiratory: Reports no additional respiratory complaints Gastrointestinal: Gastrointestinal: Reports no additional gastrointestinal complaints Genitourinary: Genitourinary: Reports no additional male genitourinary complaints Musculoskeletal: Musculoskeletal: Reports no additional musculoskeletal complaints Integumentary/Breasts: Skin/Breast: Reports system reviewed and no additional complaints, except as docu Neurologic: Reports system reviewed and no additional complaints, except as documented Psychiatric: Psychiatric: Reports no additional psychiatric complaints Endocrine: Endocrine: Reports no additional endocrine complaints Hematologic/Lymphatic: Hematologic/Lymphatic: Reports no additional hematologic/lymphatic complaints Allergic/Immunologic: Allergic/Immunologic: Reports no additional allergic/immunologic complaints [facility] Past Medical History Medical History Abnormal CT scan, colon Diarrhea Bipolar disorder Rectal bleeding Smoker ADHD Tobacco abuse Depression Surgical History Surgical History H/O laparoscopy 09/19/20 Incisional hernia repair 2. Laparoscopic adhesiolysis H/O inguinal hernia repair 11/20/19 RIH repair with mesh, davinci assisted S/P foot surgery, left Family History Family History Sibling Asthma ADHD Kidney stones Depression Unknown Heart disease Depression Social History Social History Smoking packs per day: 1.5 Smoking cigarettes per day: 30.0 Years smoked: 17 Smoking pack-years: 25.50 Smoking status: Former smoker Tobacco type: cigarettes Second hand tobacco smoke exposure: Yes Alcohol intake: current Drinks per week: 6 Alcohol use details: hard liquor Substance use: current Substance use type: marijuana Other substance usage details: smokes daily Last use: 08/05/20 Living arrangements: with family Additional living arrangements comments: Lives w/ significant other and her child Occupation/Education: occupation 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 Gender identity (if verbalized by the patient): Male Sexual Orientation (if Verbalized by the Patient): Straight or Heterosexual Spiritual care concerns: No Exam 2 Const: General: ill appearing Nutritional Appearance: well nourished O rientation/consciousness: patient oriented x3 Limitations: no limitations Other: acute pain HENMT: Head: normal to inspection Ears: external ears normal F bright/Nose/Sinus: Normal external nose present Eyes: Conjunctivae: conjunctivae normal Pupils: Equal, round and reactive pupils present EOM: EOMs intact bilaterally Neck: Neck: normal visual inspection Chest: Chest palpation & inspection: normal inspection of the chest Resp: Effort & Inspection: normal respiratory effort and not labored A uscultation: clear to auscultation bilaterally and no crackles Cardio: Rate: regular rate Rhythm: regular rhythm Heart sounds: no murmurs GI: Inspection: non-distended GI Palp: Yes Soft to palpation, Yes Tenderness to palpation present (GI) ( right lower quadrant), Yes Guarding due to palpation present (GI), No Rigid due to palpation, No Hernia present, No Palpable mass present and Yes Rebound tenderness present ( McBurney point positive, Rovsing sign positive, psoas sign positive) Auscultation: normal bowel sounds : General: Yes bladder normal to palpation Back/Spine/Pelvis: Back: no CVA tenderness Skin: General skin exam: normal color Rashes: no rashes Wounds: no wounds Neuro: General: patient oriented x3 Cranial nerves: Yes Nystagmus not present Speech: normal speech Gait exam (Neuro): Normal gait present Extrem: General: normal to inspection Psych: Mental Status: mental status grossly normal Affect: normal affect Attitude: cooperative Course Vital Signs Vital signs: Vital Signs Temperature 36.9 C 07/22/24 11:03 Pulse Rate 81 07/22/24 11:03 Respiratory Rate 16 07/22/24 11:03 Blood Pressure 152/90 H 07/22/24 11:03 Pulse Oximetry 99 07/22/24 11:03 Oxygen Delivery Room Air 07/22/24 11:03 Temperature 36.9 C 07/22/24 11:03 Pulse Rate 81 07/22/24 11:03 Respiratory Rate 16 07/22/24 11:03 Blood Pressure 152/90 H 07/22/24 11:03 Pulse Oximetry 99 07/22/24 11:03 Oxygen Delivery Room Air 07/22/24 11:03 MDM - Abdominal Pain MDM Narrative Medical decision making narrative: patient is a 29-year-old male with right lower quadrant pain here for workup and rule out appendicitis. We will do GI workup at this time. Pain control. Nausea control. Lab Data Attestation: I reviewed the patient's lab results. 07/22/24 11:41 07/22/24 11:41 Labs: Lab Results 07/22/24 07/22/24 Range/Units 11:27 11:41 WBC 8.6 (4.8-10.8) K/mm3 RBC 5.35 (4.70-6.10) M/mm3 Hgb 16.7 (14.0-18.0) g/dL Hct 48.7 (40.0-54.0) % MCV 91.0 (78.0-102.0) fL MCH 31.2 H (27.0-31.0) pg MCHC 34.3 (32-36) g/dL RDW 13.2 (11.6-14.4) % Plt Count 310 (150-420) K/mm3 MPV 8.7 (8.7-11.0) fl Immature Gran % (Auto) 0.5 H (0.0-0.0) % Neut % (Auto) 56.0 (50.0-70.0) % Lymph % (Auto) 30.0 (18.0-42.0) % [place] % (Auto) 9.2 (2.0-11.0) % Eos % (Auto) 3.8 (1.0-6.0) % Baso % (Auto) 0.5 (0.0-1.0) % Lymph # (Auto) 2.59 (1.10-4.50) K/mm3 [place] # (Auto) 0.79 (0.10-0.90) K/mm3 Eos # (Auto) 0.33 (0.02-0.50) K/mm3 Baso # (Auto) 0.04 (0.00-0.10) K/mm3 Abs Immat Gran (auto) 0.04 H (0.00-0.00) K/mm3 Absolute Neuts (auto) 4.83 (1.70-7.20) K/mm3 Absolute Nucleated RBC 0.00 (0.00-0.00) K/mm3 Nucleated RBC % 0.0 (0-0.0) % PT 10.9 (9.50-12.1) Seconds INR 1.0 APTT 29.1 (23.9-30.70) Sec Sodium 139 (137-145) mmol/L Potassium 3.7 (3.4-5.0) mmol/L Chloride 108 H (98-107) mmol/L Carbon Dioxide 25 (22-30) mmol/L Anion Gap 6 (4-12) mmol/L BUN 14 (9-20) mg/dL Creatinine 0.92 (0.7-1.3) mg/dL Estim Creat Clear Calc 100 ml/min Estimated GFR > 60 (59 - ) Glucose 98 (65-110) mg/dL Calculated Osmolality 288 (285-295) mOsm/kg Lactic Acid 1.1 (0.4-2.0) mmol/L Calcium 9.4 (8.4-10.2) mg/dL Total Bilirubin 0.6 (0.2-1.3) mg/dL AST 38 (17-59) U/L ALT 35 (6-50) U/L Alkaline Phosphatase 75 (38-126) U/L Total Protein 7.0 (6.3-8.2) g/dL Albumin 4.4 (3.5-5.1) g/dL Lipase 55 (23-300) U/L Urine Color Light yellow (Yellow) Urine Appearance Clear (Clear) Urine pH 6.0 (5.0-8.0) Ur Specific [place] <= 1.005 L (1.010-1.020) Urine Protein Negative (Negative) Urine Glucose (UA) Negative (Negative) Urine Ketones Negative (Negative) Ur Blood (Man) Negative (Negative) Urine Nitrate Negative (Negative) Urine Bilirubin Negative (Negative) Urine Urobilinogen 0.2 (0.2-1.0) mg/dL Leukocyte Esterase Rfl Negative (Negative) LUISANA/UL Imaging Data Attestation: I personally reviewed and interpreted this imaging study as follows: Radiologist's impression: ITS Impressions Abdomen/Pelvis CT 07/22/24 12:29 Impression: No significant abnormalities seen. Discharge Plan Discharge Clinical Impression: Abdominal pain Qualifiers: Abdominal location: right lower quadrant Qualified Code(s): R10.31 - Right lower quadrant pain Patient Disposition: Home Condition: Stable Instructions: Abdominal Pain (ED) Additional Instructions: Please follow-up with your primary doctor in the next week. Please follow-up with your hernia specialist as planned. Patient Language: Ecuadorean Prescriptions: New tramadol 50 mg tablet 50 mg PO Q8H PRN (Reason: pain) Qty: 20 0RF Rx Instructions: 1-2 tabs per dose ondansetron 4 mg tablet,disintegrating 4 mg PO Q8H PRN (Reason: nausea) Qty: 20 0RF Follow-up/Referrals: Jeet Alexandra MD [Primary Care Provider] - Time of Disposition: 12:46
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
--- OUTSIDE RECORDS SUMMARY | 2024-07-22 11:11 | XMS_ITS | Referral Summary ---
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 Care Teams Keyboard Action Assembler Relationship Specialty Start Date End Date Jeet Lance PA [address] [place] [address] PCP - General Family Practice 06/27/18
--- OUTSIDE RECORDS SUMMARY | 2024-07-22 11:11 | XMS_ITS | Data Portability ---
Author Organization [facility], [address] [place] [address] [place] ([place]) Address [address] [address] Care Team Providers Care Process Control Engineer Name Role Phone KVNG JACOBSON Referring Provider [phone] Assessment Encounter Date Assessment Date Assessment LastModified [...] other causes, but cysto is normal today. [facility] Not available 08/03/2023 08:07:17 12/02/2023 12/02/2023 [...] These were reviewed with the patient. sanket Not available 12/02/2023 19:30:52 Plan of Treatment [...] evalu ated. END OF T Not Available Me Only - [facility] [address], [address], 08/03/2023 16:10:18 08/02/19 24 08/02/2023 cytol ogy, urine urine cytology * Speci men colle cted and sent out for testi ng by [facility]. Resul ts will flow into the elect ronic recor d and the provi ruben will recei ve a 'Revi ew Docum ent' task at that time. Not Available Me Only - [facility] [address], [address], 08/02/2023 14:43:44 Result Notes None recorded. 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 Procedures Surgical History Date Name Laterality Status Provider Name and Address Organization Details Recorded Time 08/02/19 SC Procedure completed Nel Mohr [facility] 08/03/2023 08:06:59 Colonoscopy with biopsy completed Not [...] Updated DateTime 08/02/2023 170.18 cm 24.4 kg/m2 07702.97 g 118 mm[Hg] 72 mm[Hg] Joslyn Tinajero [facility] 13:58:33 Date Recorded Body height Body mass index (BMI) Body weight Heart rate Oxygen saturation Oxygen saturation in Arterial blood by Pulse oximetry Systolic blood pressure Diastolic blood pressure Provider Name and Address Organization Details Last Updated DateTime 173.99 cm 23.6 kg/m2 15317.4 4 g 76 /min 98 % 98 % 128 mm[Hg] 88 mm[Hg] Christie Patel [facility] 11:03:50 Social History Question Answer Notes LastModified by Organizat ion Details LastModified Time Tobacco Smoking Status Current Every Day Smoker Christie Patel [facility] 12/02/2023 11:04:34 Do You Have [...] Do You Have A Medical Power Of Family Mediator? No [email or web address] Information not available 07/26/2023 What [...] Stroke N Fibromyalgia N Kidney Disease N Attention-deficit Hyperactivity Disorder N Thyroid Problems N Anemia N Diabetes N Bleeding Disorder N Hyperlipidemia N Asthma N Seizures N Heart Disease N Osteoporosis N Past Encounters Encounter ID Performer Location Encounter Start Date Encounter Closed Date Diagnosis/Indication Diagnosis SNOMED-CT Code Diagnosis ICD10 Code Diagnosis Note [id number] [place] MD [address] [facility] [address] [place] [address] [address] [place] [address] 08/02/2023 11:46:02 08/02/2023 15:36:16 Dysuria 73079948 R30.0 [id number] Aruna Gomez PA-C [address] [facility] [address] [facility] [address] [place] [address] 12/02/2023 10:36:59 12/02/2023 12:10:18 Increased frequency of urination 436301543 R35.0 Dysuria 17295564 R30.0 Insomnia 850604499 G47.0 0 Health Concerns Section Related Observation LastModified by Organization Detai ls LastModified Time None Recorded Concern Status LastModified by Organization Details LastModified Time None Recorded Advance Directives Directive N: Payers Insurance Date Sequence Insurance Name Policy Number Policy Mullins Covered Member ID Mullins Member ID Guarantor Name 09/14/2023 1 [facility] - DOS ON OR AFTER 20 (MEDICAID REPLACEMENT - HMO) Matias Calvin [id number] Matias Calvin 05/26/2024 1 [facility] (MEDICAID HMO) [id number] Matias Calvin [id number] Matias Calvin Notes Date Note Type Note Provider Name and Address Organization Details Recorded Time 08/02/2023 text/html A 28-year-old seen by Abbie Ureña with urinary urgency, frequency. This has been going on for several months. Culture apparently has been negative.[facility] Hunter [place] MD [address] [facility], [place], [address], [facility] 08/05/2023 09:56:14
--- OUTSIDE RECORDS SUMMARY | 2024-07-22 11:11 | XMS_ITS | Clinical Summary ---
Author Organization [facility] Address [address] [place] [address] Phone Care Team Providers Care Rice Farmer Name Role Phone Jeet Lance Primary Care Provider [phone] Allergies No known active allergies Medications clotrimazole [...] Virus (HCV) Screening 1994 TdaP Immunization 1994 Human Papillomavirus (HPV) Immunization (1 - Male 3-dose series) 2009 Hepatitis B Immunization (1 of 3 - [...] this topic Insurance MEDICAID [place] Care Teams Rice Farmer Relationship Specialty Start Date End Date Jeet Lance PAC [address] [place] [address] PCP - General Physician Imaging Technologist 12/20/17
[2024-07-22] MEDS: ONDANSETRON INJ 4 MG/2 ML VIAL IV PUSH (11:38)
[2024-07-22] MEDS: MORPHINE SULFATE (*CRX) 2 MG/ML INJ IV PUSH (11:39)
[2024-07-22] MEDS: SODIUM CHLORIDE 0.9% IV 1,000 ML 999 ML IV CONT (11:39)
[2024-07-22 11:48] LABS: Basophils Absolute Auto 0.04 K/mm3 (0.00-0.10); Basophils Percent Auto 0.5 % (0.0-1.0); Eosinophils Absolute Auto 0.33 K/mm3 (0.02-0.50); Eosinophils Percent Auto 3.8 % (1.0-6.0); Hematocrit 48.7 % (40.0-54.0); Hemoglobin 16.7 g/dL (14.0-18.0); Immature Granulocyte Absolute 0.04 K/mm3 (0.00-0.00); Immature Granulocyte Percent A 0.5 % (0.0-0.0); Lymphocytes Absolute Auto 2.59 K/mm3 (1.10-4.50); Mean Corpuscular HGB Conc 34.3 g/dL (32-36); Mean Corpuscular Hemoglobin 31.2 pg (27.0-31.0); Mean Platelet Volume 8.7 fl (8.7-11.0); Monocytes Absolute Auto 0.79 K/mm3 (0.10-0.90); Monocytes Percent Auto 9.2 % (2.0-11.0); Neutrophils Absolute Auto 4.83 K/mm3 (1.70-7.20); Platelet Count Result 310 K/mm3 (150-420); Red Blood Count 5.35 M/mm3 (4.70-6.10); Red Cell Distribution Width 13.2 % (11.6-14.4); White Blood Count 8.6 K/mm3 (4.8-10.8)
--- OUTSIDE RECORDS SUMMARY | 2024-07-22 11:49 | XMS_ITS | Clinical Summary ---
Author Organization [facility] Address [address] [place] [address] Phone Care Team Providers Care Wildlife Policy Professional Name Role Phone Jeet Lance Primary Care Provider [phone] Allergies No known active allergies Medications clotrimazole [...] this topic Insurance MEDICAID [place] Care Teams Wildlife Policy Professional Relationship Specialty Start Date End Date Jeet Lance PAC [address] [place] [address] PCP - General Physician Retail Consultant 12/20/17
--- OUTSIDE RECORDS SUMMARY | 2024-07-22 11:49 | XMS_ITS | Referral Summary ---
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
[2024-07-22 12:00] LABS: Add Urine Microscopic? NO; Appearance Urine Clear (Clear); Bilirubin Urine Negative (Negative); Blood Urine Negative (Negative); Color Urine Light Yellow (Yellow); Glucose Urine UA Negative (Negative); Ketones Urine Negative (Negative); Leukocyte Esterase Ur Negative LEU/UL (Negative); Nitrate Urine Negative (Negative); Protein Urine Negative (Negative); Specific Grav Ur <= 1.005 (1.010-1.020); Urobilinogen Urine 0.2 mg/dL (0.2-1.0)
[2024-07-22 12:06] LABS: Partial Thromboplastin Time 29.1 Sec (23.9-30.70); Prothrombin Time 10.9 Seconds (9.50-12.1)
[2024-07-22 12:07] LABS: Alanine Aminotransferase 35 U/L (6-50); Albumin Level 4.4 g/dL (3.5-5.1); Alkaline Phosphatase 75 U/L (38-126); Anion Gap 6 mmol/L (4-12); Aspartate Amino Transferase 38 U/L (17-59); Bilirubin,Total 0.6 mg/dL (0.2-1.3); Blood Urea Nitrogen 14 mg/dL (9-20); Calcium 9.4 mg/dL (8.4-10.2); Carbon Dioxide 25 mmol/L (22-30); Chloride 108 mmol/L (98-107); Estimated CRCL calculation 100 ml/min; Estimated Glomerular Filt Rate > 60; Glucose 98 mg/dL (65-110); Lactic Acid Reflex 1.1 mmol/L (0.4-2.0); Lipase 55 U/L (23-300); Osmolality Calculated 288 mOsm/kg (285-295); Potassium 3.7 mmol/L (3.4-5.0); Sodium 139 mmol/L (137-145)
[2024-07-22 12:55] VITALS: BP 122/78; PULSE 61; RESP 14; O2SAT 99
--- NOTE | 2024-07-23 12:50 | PC.NURSE ---
PRELIMINARY BLOOD CULTURE REPORT; NO GROWTH TO DATE.
--- NOTE | 2024-07-28 16:15 | PC.NURSE ---
Final blood culture: No growth after 5 days
== END 2024-07-22 12:56 | disposition home or self-care (01) ==
PROVIDERS: Emergency Provider Emergency Medicine; PCP Family Medicine
DX: R10.31 Right lower quadrant pain (principal); Z87.891 Personal history of nicotine dependence
CPT/HCPCS: 36415; 74177; 80053; 81003; 83605; 83690; 85025; 85610; 85730; 87040; 96361; 96374; 96375; 99284; J2270; J2405; J7030; Q9967

== ENCOUNTER 2024-09-26 09:37 | Emergency (ER) | payer OTHER, SELFPAY ==
--- NOTE | ~2024-09-26 | XR_ITS ---
EXAM/PROCEDURE: XR chest 1V portable - 09/26/2024 9:40 CDT HISTORY: 29 years old Male with cough TECHNIQUE: Two view(s) of the chest. COMPARISON: None available. FINDINGS: LUNGS/ PLEURA: No focal consolidation. No appreciable pneumothorax or large pleural effusion. HEART/ MEDIASTINUM: Heart appears normal in size. BONES: No acute osseous abnormality. OTHER: Visualized upper abdomen is unremarkable. IMPRESSION: No acute process. Reviewed, dictated and finalized at location A. IMPRESSION: No acute process.
[2024-09-26 09:37] VITALS: BP 143/88; PULSE 86; RESP 16; TEMP 36.8; O2SAT 97
--- NOTE | 2024-09-26 09:40 | ED.URI ---
HPI - URI/Sore Throat General Chief Complaint: Upper Respiratory Infection Stated Complaint: uri Time Seen by Provider: 09/26/24 09:40 Source: patient Mode of arrival: ambulatory Limitations: no limitations History of Present Illness HPI Narrative: 29-year-old male with a history of smoking,ADHD, bipolar presents to the ED with a 2 day history of -- nasal congestion -- sore throat -- cough which is nonproductive -- sinus congestion no fever or chills no chest pain or shortness of breath MD elicited complaint: cough, sore throat, nasal congestion and sinus pain Onset (ago): day(s) ( 2 days) Consistency: constant Severity: mild Able to tolerate fluids by mouth: Yes Exacerbating factors: nothing Relieving factors: nothing Associated symptoms: denies other symptoms, nasal congestion, sore throat and cough Treatments prior to arrival: none Related Data Allergies Allergy/AdvReac Type Severity Reaction Status Date / Time Antihistamines - Alkylamine AdvReac Intermediate Difficulty Verified 09/26/24 09:41 Breathing Review of Systems Review of Systems: All systems reviewed & are unremarkable except as noted in HPI and below Constitutional: Constitutional: Reports as per HPI and Reports no additional constitutional complaints Eyes: Eyes: Reports as per HPI and Reports no additional eye complaints ENT: Reports system reviewed and no additional complaints, except as documented, Reports as per HPI, Reports nasal congestion and Reports sore throat Cardiovascular: Cardiovascular: Reports as per HPI and Reports no additional cardiovascular complaints Respiratory: Respiratory: Reports as per HPI, Reports no additional respiratory complaints and Reports cough Gastrointestinal: Gastrointestinal: Reports as per HPI and Reports no additional gastrointestinal complaints Genitourinary: Genitourinary: Reports no additional male genitourinary complaints and Reports as per HPI Musculoskeletal: Musculoskeletal: Reports no additional musculoskeletal complaints and Reports as per HPI Integumentary/Breasts: Skin/Breast: Reports system reviewed and no additional complaints, except as docu and Reports as per HPI Neurologic: Reports system reviewed and no additional complaints, except as documented and Reports as per HPI Psychiatric: Psychiatric: Reports no additional psychiatric complaints and Reports as per HPI Endocrine: Endocrine: Reports no additional endocrine complaints and Reports as per HPI Hematologic/Lymphatic: Hematologic/Lymphatic: Reports no additional hematologic/lymphatic complaints and Reports as per HPI Allergic/Immunologic: Allergic/Immunologic: Reports no additional allergic/immunologic complaints and Reports as per HPI PMFSH Past Medical History Medical History Abnormal CT scan, colon Diarrhea Bipolar disorder Rectal bleeding Smoker ADHD Tobacco abuse Depression Surgical History Surgical History H/O laparoscopy 09/19/20 Incisional hernia repair 2. Laparoscopic adhesiolysis H/O inguinal hernia repair 11/20/19 RIH repair with mesh, davinci assisted S/P foot surgery, left Family History Family History Sibling Asthma ADHD Kidney stones Depression Unknown Heart disease Depression Social History Social History Smoking packs per day: 1.5 Smoking cigarettes per day: 30.0 Years smoked: 17 Smoking pack-years: 25.50 Smoking status: Former smoker Tobacco type: cigarettes Second hand tobacco smoke exposure: Yes Alcohol intake: current Drinks per week: 6 Alcohol use details: hard liquor Substance use: current Substance use type: marijuana Other substance usage details: smokes daily Last use: 08/05/20 Living arrangements: with family Additional living arrangements comments: Lives w/ significant other and her child Occupation/Education: occupation 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 Gender identity (if verbalized by the patient): Male Sexual Orientation (if Verbalized by the Patient): Straight or Heterosexual Spiritual care concerns: No Exam Narrative: vitals are stable. Blood pressure is 143/88 Const: General: no acute distress Orientation/consciousness: patient oriented x3 Limitations: no limitations HENMT: Head: normal to inspection Ears: external ears normal Face/Nose/Sinus: Normal external nose present Face and sinus: normal facial exam Mouth: Yes Normal oral and palatal mucosa present Other: pharyngeal erythema Eyes: Conjunctivae: conjunctivae normal Pupils: Equal, round and reactive pupils present EOM: EOMs intact bilaterally Direct Ophthalmoscopy: no photophobia Neck: Neck: normal visual inspection, no lymphadenopathy and no meningeal signs Chest: Chest palpation & inspection: normal inspection of the chest Resp: Effort & Inspection: normal respiratory effort Auscultation: clear to auscultation bilaterally Cardio: Rate: regular rate Rhythm: regular rhythm GI: GI Palp: Yes Soft to palpation Auscultation: normal bowel sounds Other: no tenderness/rigidity / rebound Back/Spine/Pelvis: Back: no CVA tenderness Skin: General skin exam: normal color Rashes: no rashes Wounds: no wounds Neuro: General: patient oriented x3, moves all extremities, no meningeal signs, no focal motor deficits and CN's II-XI intact bilaterally Cranial nerves: Yes Nystagmus not present Speech: normal speech Gait exam (Neuro): Normal gait present Extrem: General: normal to inspection and no clubbing, cyanosis or edema Psych: Mental Status: mental status grossly normal Affect: normal affect Attitude: cooperative Course Course Emergency Course: upper respiratory tract infection-- tested negative for RSV/influenza / COVID bronchitis/ smoker's cough-- negative chest x-ray Vital Signs Vital signs: Vital Signs Temperature 36.8 C 09/26/24 09:37 Pulse Rate 86 09/26/24 09:37 Respiratory Rate 16 09/26/24 09:37 Blood Pressure 143/88 H 09/26/24 09:37 Pulse Oximetry 97 09/26/24 09:37 Oxygen Delivery Room Air 09/26/24 09:37 Temperature 36.8 C 09/26/24 09:37 Pulse Rate 86 09/26/24 09:37 Respiratory Rate 16 09/26/24 09:37 Blood Pressure 143/88 H 09/26/24 09:37 Pulse Oximetry 97 09/26/24 09:37 Oxygen Delivery Room Air 09/26/24 09:37 MDM - URI/Sore Throat MDM Narrative Medical decision making narrative: upper respiratory tract infection acute bronchitis Differential Diagnosis Differential diagnosis: Likely sinusitis Medical Records Attestation: I reviewed the patient's medical records. Lab Data Attestation: I reviewed the patient's lab results. Labs: Lab Results 09/26/24 Range/Units 09:50 Influenza A (RT-PCR) Negative (Negative) Influenza B (RT-PCR) Negative (Negative) RSV (RT-PCR) Negative (Negative) SARS-CoV-2 RNA (RT-PCR) Negative (Negative) Discharge Plan Discharge Clinical Impression: Bronchitis Upper respiratory infection Qualifiers: URI type: unspecified URI Qualified Code(s): J06.9 - Acute upper respiratory infection, unspecified Patient Disposition: Home Condition: Stable Instructions: Antibiotic Form, Upper Respiratory Infection (ED), Acute Bronchitis (ED) Patient Language: Montserratian Prescriptions: New azithromycin [Zithromax] 250 mg tablet See Rx Instructions .ROUTE .COMPLEX Qty: 6 0RF Rx Instructions: For 250 mg dose pack: take 500 mg today (day 1), then 250 mg for 4 days (days 2-5) Follow-up/Referrals: Jeremie Lazo MD [Physician, Internal Medicine] Time of Disposition: 10:42
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
--- OUTSIDE RECORDS SUMMARY | 2024-09-26 09:46 | XMS_ITS | Clinical Summary ---
Author Organization [facility] Address [address] [place] [address] Phone Care Team Providers Care New Car Inspector Name Role Phone Provider, None Primary Care Provider Unavailabl e Allergies No known active allergies Medications clotrimazole [...] severe pain. 20 Tablet 05/30/19 21 Active pantoprazole (PROTONIX) 40 MG Tablet Delayed Response Take 1 Tablet by mouth daily. 30 Tablet 07/26/19 25 Active Encounters Date Type Department Care Team Description 07/25/2024 6:25 PM CDT - 07/25/2024 8:42 PM CDT Emergency [facility] Emergency [address] [place] [address] Ismael Dean MD Epigastric abdominal pain Discharge Disposition: Discharged to home or Selfcare 07/25/2024 Travel from Last 3 Months Social History Tobacco Use Types Packs/Day Years Used Date Smoking Tobacco: Every Day Cigarettes Smokeless Tobacco: Never Tobacco Cessation:Ready to Q uit: Not Asked; Counseling Given: Not Answered Alcohol Use Standard Drinks/Week Comments Yes 0 (1 standard drink = 0.6 oz pur e alcohol) drinks a fifth of vodka daily Sex and Gender Information Value Date Recorded Sex Assigned at Not on file Legal Sex Male 10:56 PM CDT Gender Identity Not on file Sexual Orientation Not on file Last Filed Vital Signs Vital Sign Reading Time Taken Comments Blood Pressure 137/84 07/25/2024 8:30 PM CDT Pulse 70 07/25/2024 8:30 PM CDT Temperature 36.5 C (97.7 F) 07/25/2024 6:30 PM CDT Respiratory Rate 18 07/25/2024 6:30 PM CDT Oxygen Saturation 99% 07/25/2024 8:30 PM CDT Inhaled Oxygen Concentration - - Weight 70 kg (154 lb 5.2 oz) 07/25/2024 6:47 PM CDT Height 172.7 cm (5' 8) 07/25/2024 6:47 PM CDT Body Mass Index 23.46 07/25/2024 6:47 PM CDT Plan of Treatment Health Maintenance Due Date Last Done Comments Hepatitis C Virus (HCV) Screening 1994 Pneumococcal Immunization Combined (1 of 2 - PCV) 2013 Human Papillomavirus (HPV) Immunization (1 - 3-dose SCDM series) 2021 SARS-COV-2 Immunization ( - 2023- season) 2023 Influenza Immunization (#1) 2024 Respiratory Syncytial Virus (RSV) Immunization (Adult) (1 - 1-dose 75+ series) 2069 Hepatitis B Immunization Completed 995, 1994, 1994 Meningococcal Immunization (ACWY) Completed 12/03/2011, 10/03/2009 DTaP/Tdap/Td Immunization Discontinued 2020, 08/03/2007, 05/05/2005, Additional history exists TdaP Immunization Completed 11/22/2020, , 05/05/2005, Additional history exists Rotavirus Immunization Aged Out No lo nger eligible based on patient's age to complete this topic Procedures Procedure Name Priority Date/Time Associated Diagnosis Comments URINALYSIS REFLEX IF INDICATED BY ABNORMAL RESULTS STAT 07/25/2024 7:03 PM CDT GOLD TOP TUBE STAT 07/25/2024 6:40 PM CDT BLUE TOP TUBE STAT 07/25/2024 6:40 PM CDT CBC WITH AUTO DIFFERENTIAL STAT 07/25/2024 6:40 PM CDT EXTRA TUBES STAT 07/25/2024 6:40 PM CDT LIPASE STAT 07/25/2024 6:40 PM CDT CMP (COMPREHENSIVE METABOLIC PANEL) STAT 07/25/2024 6:40 PM CDT COMPLETE BLOOD COUNT (CBC) WITH DIFF STAT 07/25/2024 6:40 PM CDT from Last 3 Months Results * (ABNORMAL) Urinalysis w/ Reflex (07/25/2024 7:03 PM CDT) SPECIFIC GRAVITY 1.010 1.003 - 1.030 07/25/2024 7:36 PM CDT [facility] URINE PH 7.0 5.0 - 9.0 07/25/2024 7:36 PM CDT [facility] WBC ESTERASE Negative Negative 07/25/2024 7:36 PM CDT [facility] NITRITE Negative Negative 07/25/2024 7:36 PM CDT [facility] PROTEIN, RANDOM URINE 15 mg/dL(A) Negative 07/25/2024 7:36 PM CDT [facility] URINE GLUCOSE, QUAL Negative Negative 07/25/2024 7:36 PM CDT [facility] URINE KETONES 5 mg/dL(A) Negative 07/25/2024 7:36 PM CDT [facility] UROBILINOGEN Normal Normal mg/dL 07/25/2024 7:36 PM CDT [facility] URINE BLOOD Negative Negative julisa/ul 07/25/2024 7:36 PM CDT [facility] URINALYSIS COLOR Yellow 07/26/19 7:36 PM CDT [facility] URINALYSIS CLARITY Clear 07/25/2024 7:36 PM CDT [facility] Urine URINE SPECIMEN OBTAINED BY CLEAN CATCH PROCEDURE / Unknown Non-Phlebotomy Collection / Unknown 07/25/2024 7:03 PM CDT 07/25/2024 7:15 PM CDT Ismael Dean MD URINE ORDERABLES Final Res ult Performing Organization Address [facility] Co de Phone Number [facility] [address] [place] [address] * Gold Top Tube (07/25/2024 6:40 PM CDT) Blood No Phlebotomy Charged / Unknown 07/25/2024 6:40 PM CDT 07/25/2024 7:17 PM CDT Ismael Dean MD CHEMISTRY ORDERABLES Final Result Performing Organization Address [facility] Co de Phone Number [facility] [address] [place] [address] * Blue Top Tube (07/25/2024 6:40 PM CDT) Blood No Phlebotomy Charged / Unknown 07/25/2024 6:40 PM CDT 07/25/2024 7:17 PM CDT Ismael Dean MD HEMATOLOGY ORDERABLES Felicita l Result Performing Organization Address City/[facility] Co de Phone Number [facility] [address] [place] [address] * (ABNORMAL) CBC with Auto Differential (07/25/2024 6:40 PM CDT) WBC 13.58(H) 4.00 - 12.00 10(3)/mcL 07/25/2024 7:21 PM CDT [facility] RBC 5.44 4.40 - 5.80 10(6)/mcL 07/25/2024 7:21 PM CDT [facility] HEMOGLOBIN (HGB) 17.3(H) 13.0 - 16.5 g/dL 07/25/2024 7:21 PM CDT [facility] HEMATOCRIT (HCT) 49.3 38.0 - 50.0 % 07/25/2024 7:21 PM CDT [facility] MCV 90.6 82.0 - 96.0 fL 07/25/2024 7:21 PM CDT [facility] MCH 31.8 26.0 - 32.0 pg 07/25/2024 7:21 PM CDT [facility] MCHC 35.1 31.0 - 36.0 g/dL 07/25/2024 7:21 PM CDT [facility] PLATELET COUNT 325 140 - 440 10(3)/mcL 07/25/2024 7:21 PM CDT [facility] RDW 13.1 11.8 - 15.5 % 07/25/2024 7:21 PM CDT [facility] MPV 9.1 8.0 - 12.6 fL 07/25/2024 7:21 PM CDT [facility] NEUTROPHILS 72.1(H) 40.0 - 68.0 % 07/25/2024 7:21 PM CDT [facility] LYMPHOCYTES 16.3(L) 19.0 - 49.0 % 07/25/2024 7:21 PM CDT [facility] MONOCYTES 8.5 3.0 - 13.0 % 07/25/2024 7:21 PM CDT [facility] EOSINOPHILS 2.1 0.0 - 8.0 % 07/25/2024 7:21 PM CDT [facility] BASOPHILS 0.5 0.0 - 1.0 % 07/25/2024 7:21 PM CDT [facility] IMMATURE GRANULOCYTE 0.5(H) 0.0 - 0.4 % 07/25/2024 7:21 PM CDT [facility] Comment:Immature Granulocyte s includes Metamyelocytes, Myelocytes, and Promyelocytes. ABSOLUTE NEUTROPHILS 9.79(H) 1.40 - 5.30 10(3)/mcL 07/25/2024 7:21 PM CDT [facility] ABSOLUTE LYMPHOCYTES 2.21 0.90 - 3.30 10(3)/[facility] 07/25/2024 7:21 PM CDT [facility] ABSOLUTE MONOCYTES 1.16(H) 0.10 - 0.90 10(3)/[facility] 07/25/2024 7:21 PM CDT [facility] ABSOLUTE EOSINOPHIL 0.28 0.00 - 0.50 10(3)/[facility] 07/25/2024 7:21 PM CDT [facility] ABSOLUTE BASOPHILS 0.07 0.00 - 0.10 10(3)/[facility] 07/25/2024 7:21 PM CDT [facility] ABSOLUTE IMMATURE GRANULOCYTE 0.07(H) 0.00 - 0.03 10 (3) [facility] 07/25/2024 7:21 PM CDT [facility] NRBC PER 100 WBC 0 07/26/19 7:21 PM CDT [facility] Blood Venipuncture / Unknown 07/25/2024 6:40 PM CDT 07/25/2024 7:18 PM CDT Ismael Dean MD HEMATOLOGY ORDERABLES Felicita l Result [facility] [address] [place] [address] * Lipase (07/25/2024 6:40 PM CDT) LIPASE 10 8 - 78 U/L 07/25/2024 7:40 PM CDT [facility] Blood Venipuncture / Unknown 07/25/2024 6:40 PM CDT 07/25/2024 7:18 PM CDT Ismael Dean MD CHEMISTRY ORDERABLES Final Result [facility] [address] [place] [address] * (ABNORMAL) CMP (07/25/2024 6:40 PM CDT) SODIUM 137 136 - 145 mmol/L 07/25/2024 7:40 PM CDT [facility] POTASSIUM 4.1 3.5 - 5.1 mmol/L 07/25/2024 7:40 PM CDT [facility] CHLORIDE 104 98 - 107 mmol/L 07/25/2024 7:40 PM CDT [facility] CO2, VENOUS 23 22 - 30 mmol/L 07/25/2024 7:40 PM CDT [facility] ANION GAP 14.1 <18.0 mmol/L 07/25/2024 7:40 PM CDT [facility] GLUCOSE 92 70 - 99 mg/dL 07/25/2024 7:40 PM CDT [facility] BUN 11 9 - 21 mg/dL 07/25/2024 7:40 PM CDT [facility] CREATININE, BLOOD 0.99 0.70 - 1.30 mg/dL 07/25/2024 7:40 PM CDT [facility] BUN/CREATININE RATIO 11(L) 12 - 20 ratio 07/25/2024 7:40 PM CDT [facility] TOTAL PROTEIN 7.6 6.0 - 8.0 g/dL 07/25/2024 7:40 PM CDT [facility] ALBUMIN 4.9 3.5 - 5.0 g/dL 07/25/2024 7:40 PM CDT [facility] A/G RATIO 1.8 1.0 - 2.2 07/25/2024 7:40 PM CDT [facility] CALCIUM 9.6 8.7 - 10.5 mg/dL 07/25/2024 7:40 PM CDT [facility] T BILI 0.6 0.2 - 1.2 mg/dL 07/25/2024 7:40 PM CDT [facility] SGOT (AST) 29 <43 U/L 07/25/2024 7:40 PM CDT [facility] SGPT (ALT) 36 <56 U/L 07/25/2024 7:40 PM CDT [facility] ALKALINE PHOSPHATASE 76 40 - 150 U/L 07/25/2024 7:40 PM CDT [facility] GFR, ESTIMATED >60 >=60 07/25/2024 7:40 PM CDT [facility] Comment: Creatinine Clearance is the preferred criteria for selecting drug dose adjustments in renally impaired patients. The GFR is provided as additional pertinent clinical information. GFR is reported in mL/min/1.73 sq m. Calculation based on the Chronic Kidney Disease Epidemiology Collaboration (CKD- EPI) equation refit without adjustment for race. GFR, EST. >60 >=60 025 7:40 PM CDT [facility] GFR, EST. NONAFRICAN >60 >=60 07/25/2024 7:40 PM CDT [facility] Blood Venipuncture / Unknown 07/25/2024 6:40 PM CDT 07/25/2024 7:18 PM CDT Ismael Dean MD CHEMISTRY ORDERABLES Final Result [facility] [address] [place] [address] from Last 3 Months Insurance MEDICAID [place] Member Subscriber Plan / Payer (Ef fective 2020-Present) Name:Matias Calvin Relation to Subscriber:Self Name:Matias Calvin Payer ID:[id number] (NAIC) Type:Not on file Address: [place] [id number] Care Teams New Car Inspector Relationship Specialty Start Date End Date Provider, None [place] PCP - General 07/25/24
--- OUTSIDE RECORDS SUMMARY | 2024-09-26 09:46 | XMS_ITS | Clinical Summary ---
Author Organization [facility] Address [address] [place] [address] Care Team Providers Care Crew Manager Name Role Phone Jeet Lance Primary Care Provider [phone] Allergies No known active allergies Medications No known medications Active Problems No known active problems Immunizations Immunization Administration Dates Next Due Tdap (Boostrix) 11/22/2020 [...] 65 11/22/2020 1:15 PM CDT Temperature 36.4 C (97.5 F) 11/22/2020 1:15 PM CDT Respiratory Rate 18 11/22/2020 1:15 PM CDT Oxygen Saturation 98% 11/22/2020 1:15 PM CDT Inhaled Oxygen Concentration - - Weight 63 kg (139 lb) 11/22/2020 1:15 PM CDT Height 170.2 cm (5' 7) 11/22/2020 1:15 PM CDT Body Mass Index 21.77 11/22/2020 1:15 PM CDT Plan of Treatment Health Maintenance Due Date Last Done Comments Annual Physical 1997 Hepatitis C 01/22/2012 Pneumococcal Vaccine: Pediatrics (0 to 5 Years) and At-Risk Patients (6 to 49 Years) (1 of 2 - PCV) 2013 HPV Vaccines (1 - 3-dose SCDM series) 2021 COVID-19 Vaccine (2023-25 season) 2023 DTaP, Tdap and Td Vaccines (9 - Td or Tdap) 11/22/2030 11/22/2020, 08/03/2007, 05/05/2005, Additional history exists Hepatitis B Vaccines Completed 1994, 1994, 1994 Meningococcal Vaccine Aged Out 12/03/2011 No christopher kelly eligible based on patient's age to complete this topic Meningococcal B Vaccine Aged Out No l onger eligible based on patient's age to complete this topic RSV Immunizations Under 20 Months Aged Out No longer eligible based on patient's age to complete this topic Insurance Care Teams Crew Manager Relationship Specialty Start Date End Date Jeet Lance PA PCP - General PHYSICIAN LINE CREW SUPERVISOR 04/25/20
--- NOTE | 2024-09-26 09:57 | PC.NURSE ---
Covid culture sent to lab
[2024-09-26 10:28] LABS: Influenza A QL RT-PCR Negative (Negative); Influenza B QL RT-PCR Negative (Negative); RSV RNA, RT-PCR Negative (Negative); SARS-CoV-2 RNA PCR Negative (Negative)
--- OUTSIDE RECORDS SUMMARY | 2024-09-26 10:39 | XMS_ITS | Clinical Summary ---
Author Organization [facility] Address [address] [place] [id number] Care Team Providers Care Sales Management Intern Name Role Phone Jeet Lance Primary Care Provider [phone] Allergies No known active allergies Medications No [...] to complete this topic Insurance Care Teams Sales Management Intern Relationship Specialty Start Date End Date Jeet Lance PA PCP - General PHYSICIAN CLAY MOLDER 04/25/20
--- OUTSIDE RECORDS SUMMARY | 2024-09-26 10:39 | XMS_ITS | Clinical Summary ---
Author Organization [facility] Address [address] [place] [address] Phone Care Team Providers Care Assembler Golf Wood Head Name Role Phone Provider, None Primary Care [...] 07/25/2024 8:42 PM CDT Emergency [facility] [address] [place] [address] Ismael Dean MD Epigastric abdominal [...] - 1.030 07/25/2024 7:36 PM CDT [facility] URINE PH 7.0 5.0 - 9.0 07/25/2024 7:36 PM CDT [facility] WBC ESTERASE Negative Negative 07/25/2024 7:36 PM CDT [facility] NITRITE Negative Negative 07/25/2024 7:36 PM CDT [facility] PROTEIN, RANDOM URINE 15 mg/dL(A) Negative 07/25/2024 7:36 PM CDT [facility] URINE GLUCOSE, QUAL Negative Negative 07/25/2024 7:36 PM CDT [facility] URINE KETONES 5 mg/dL(A) Negative 07/25/2024 7:36 PM CDT [facility] UROBILINOGEN Normal Normal mg/dL 07/25/2024 7:36 PM CDT [facility] URINE BLOOD Negative Negative julisa/ul 07/25/2024 7:36 PM CDT [facility] URINALYSIS COLOR Yellow 07/26/19 7:36 PM CDT [facility] URINALYSIS CLARITY Clear 07/25/2024 7:36 PM CDT [facility] Urine URINE SPECIMEN OBTAINED BY CLEAN CATCH PROCEDURE / Unknown Non-Phlebotomy Collection / Unknown 07/25/2024 7:03 PM CDT 07/25/2024 7:15 PM CDT Ismael Dean MD URINE ORDERABLES Final Res ult Performing Organization Address [facility] Co de Phone Number [facility] [address] [place] [address] * Gold Top Tube (07/25/2024 6:40 PM CDT) Blood No Phlebotomy Charged / Unknown 07/25/2024 6:40 PM CDT 07/25/2024 7:17 PM CDT Ismael Dean MD CHEMISTRY ORDERABLES Final Result Performing Organization Address [facility] Co de Phone Number [facility] [address] [place] [address] * Blue Top Tube (07/25/2024 6:40 PM CDT) Blood No Phlebotomy Charged / Unknown 07/25/2024 6:40 PM CDT 07/25/2024 7:17 PM CDT Ismael Dean MD HEMATOLOGY ORDERABLES Felicita l Result Performing Organization Address [facility] Co de Phone Number [facility] [address] [place] [address] * (ABNORMAL) CBC with Auto Differential (07/25/2024 6:40 PM CDT) WBC 13.58(H) 4.00 - 12.00 10(3)/mcL 07/25/2024 7:21 PM CDT [facility] RBC 5.44 4.40 - 5.80 10(6)/mcL 07/25/2024 7:21 PM CDT [facility] HEMOGLOBIN (HGB) 17.3(H) 13.0 - 16.5 g/dL 07/25/2024 7:21 PM CDT [facility] HEMATOCRIT (HCT) 49.3 38.0 - 50.0 % 07/25/2024 7:21 PM CDT [facility] MCV 90.6 82.0 - 96.0 fL 07/25/2024 7:21 PM CDT [facility] MCH 31.8 26.0 - 32.0 pg 07/25/2024 7:21 PM CDT [facility] MCHC 35.1 31.0 - 36.0 g/dL 07/25/2024 7:21 PM CDT [facility] PLATELET COUNT 325 140 - 440 10(3)/mcL 07/25/2024 7:21 PM CDT [facility] RDW 13.1 11.8 - 15.5 % 07/25/2024 7:21 PM CDT [facility] MPV 9.1 8.0 - 12.6 fL 07/25/2024 7:21 PM CDT [facility] NEUTROPHILS 72.1(H) 40.0 - 68.0 % 07/25/2024 7:21 PM CDT [facility] LYMPHOCYTES 16.3(L) 19.0 - 49.0 % 07/25/2024 7:21 PM CDT [facility] MONOCYTES 8.5 3.0 - 13.0 % 07/25/2024 7:21 PM CDT [facility] EOSINOPHILS 2.1 0.0 - 8.0 % 07/25/2024 7:21 PM CDT [facility] BASOPHILS 0.5 0.0 - 1.0 % 07/25/2024 7:21 PM CDT [facility] IMMATURE GRANULOCYTE 0.5(H) 0.0 - 0.4 % 07/25/2024 7:21 PM CDT [facility] Comment:Immature Granulocyte s includes Metamyelocytes, Myelocytes, and Promyelocytes. ABSOLUTE NEUTROPHILS 9.79(H) 1.40 - 5.30 10(3)/mcL 07/25/2024 7:21 PM CDT [facility] ABSOLUTE LYMPHOCYTES 2.21 0.90 - 3.30 10(3)/[facility] 07/25/2024 7:21 PM CDT [facility] ABSOLUTE MONOCYTES 1.16(H) 0.10 - 0.90 10(3)/[facility] 07/25/2024 7:21 PM CDT [facility] ABSOLUTE EOSINOPHIL 0.28 0.00 - 0.50 10(3)/[facility] 07/25/2024 7:21 PM CDT [facility] ABSOLUTE BASOPHILS 0.07 0.00 - 0.10 10(3)/[facility] 07/25/2024 7:21 PM CDT [facility] ABSOLUTE IMMATURE GRANULOCYTE 0.07(H) 0.00 - 0.03 10 (3) [facility]. 07/25/2024 7:21 PM CDT [facility] NRBC PER 100 WBC 0 07/26/19 7:21 PM CDT [facility] Blood Venipuncture / Unknown 07/25/2024 6:40 PM CDT 07/25/2024 7:18 PM CDT Ismael Dean MD HEMATOLOGY ORDERABLES Felicita l Result [facility] [address] [place] [address] * Lipase (07/25/2024 6:40 PM CDT) LIPASE 10 8 - 78 U/L 07/25/2024 7:40 PM CDT [facility] Blood Venipuncture / Unknown 07/25/2024 6:40 PM CDT 07/25/2024 7:18 PM CDT Ismael Dean MD CHEMISTRY ORDERABLES Final Result [facility] [address] [place] [address] * (ABNORMAL) CMP (07/25/2024 6:40 PM CDT) SODIUM 137 136 - 145 mmol/L 07/25/2024 7:40 PM CDT [facility] POTASSIUM 4.1 3.5 - 5.1 mmol/L 07/25/2024 7:40 PM CDT [facility] CHLORIDE 104 98 - 107 mmol/L 07/25/2024 7:40 PM CDT [facility] CO2, VENOUS 23 22 - 30 mmol/L 07/25/2024 7:40 PM CDT [facility] ANION GAP 14.1 <18.0 mmol/L 07/25/2024 7:40 PM CDT [facility] GLUCOSE 92 70 - 99 mg/dL 07/25/2024 7:40 PM CDT [facility] BUN 11 9 - 21 mg/dL 07/25/2024 7:40 PM CDT [facility] CREATININE, BLOOD 0.99 0.70 - 1.30 mg/dL 07/25/2024 7:40 PM CDT [facility] BUN/CREATININE RATIO 11(L) 12 - 20 ratio 07/25/2024 7:40 PM CDT [facility] TOTAL PROTEIN 7.6 6.0 - 8.0 g/dL 07/25/2024 7:40 PM CDT [facility] ALBUMIN 4.9 3.5 - 5.0 g/dL 07/25/2024 7:40 PM CDT [facility] A/G RATIO 1.8 1.0 - 2.2 07/25/2024 7:40 PM CDT [facility] CALCIUM 9.6 8.7 - 10.5 mg/dL 07/25/2024 7:40 PM CDT [facility] T BILI 0.6 0.2 - 1.2 mg/dL 07/25/2024 7:40 PM CDT [facility] SGOT (AST) 29 <43 U/L 07/25/2024 7:40 PM CDT [facility] SGPT (ALT) 36 <56 U/L 07/25/2024 7:40 PM CDT [facility] ALKALINE PHOSPHATASE 76 40 - 150 U/L 07/25/2024 7:40 PM CDT [facility] GFR, ESTIMATED >60 >=60 07/25/2024 7:40 PM CDT [facility] Comment: Creatinine Clearance is the preferred criteria for selecting drug dose adjustments in renally impaired patients. The GFR is provided as additional pertinent clinical information. GFR is reported in mL/min/1.73 sq m. Calculation based on the Chronic Kidney Disease Epidemiology Collaboration (CKD- EPI) equation refit without adjustment for race. GFR, EST. >60 >=60 025 7:40 PM CDT [facility] GFR, EST. NONAFRICAN >60 >=60 07/25/2024 7:40 PM CDT [facility] Blood Venipuncture / Unknown 07/25/2024 6:40 PM CDT 07/25/2024 7:18 PM CDT Ismael Dean MD CHEMISTRY ORDERABLES Final Result [facility] [address] [place] [address] from Last 3 Months Insurance MEDICAID LEE Member Subscriber Plan / Payer (Ef fective 2020-Present) Name:Matias Calvin Relation to Subscriber:Self Name:Matias Calvin Payer ID:[id number] (NAIC) Type:Not on file Address: [place] [id number] Care Teams Assembler Golf Wood Head Relationship Specialty Start Date End Date Provider, None [place] PCP - General 07/25/24
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
[2024-09-26 10:56] VITALS: BP 132/95; PULSE 69; RESP 18; TEMP 36.9; O2SAT 97
== END 2024-09-26 10:51 | disposition home or self-care (01) ==
PROVIDERS: Emergency Provider Internal Medicine Critical Care Medicine; Referring Provider Internal Medicine
DX: J40 Bronchitis, not specified as acute or chronic (principal); J06.9 Acute upper respiratory infection, unspecified; Z87.891 Personal history of nicotine dependence; Z20.822 Contact with and (suspected) exposure to COVID-19
CPT/HCPCS: 71045; 87637; 99283